=== PATIENT | male | born 1970 | race Caucasian/White ===

== ENCOUNTER 2019-02-10 12:01 | Inpatient (IN) | payer OTHER ==
[~2019-02-10 12:01] MED LIST: Dexamethasone 20 MG/5 ML VIAL ONE; Glycopyrrolate 0.2 MG/ML 5 ML SYRINGE ONE; Lidocaine 1% PF 5 ML VIAL ONE; Ondansetron PF 4 MG/2 ML Vial ONE; PHENYLEPHRINE-NS 100 MCG/ML 10 ML SYRINGE ONE; PROPOFOL 200 MG/20 ML VIAL ONE; Succinylcholine Chloride 20 MG/ML 10 ml SYRINGE FS ONE; ePHEDrine 50 MG/ML VIAL ONE
[2019-02-10 14:17] LABS: Mean Corpuscular HGB CONC 32.9 g/dL (32.0-36.0); Mean Corpuscular Hemoglobin 32.2 pg (27.0-31.0); Mean Corpuscular Volume 97.8 fL (78.0-98.0); Platelet Count 414 thou/uL (130-400); RBC Distribution Width 13.5 % (11.5-14.5); Red Blood Cell (RBC) Count 5.27 mill/uL (4.70-6.10); White Blood Cell (WBC) Count 24.8 thou/uL (4.8-10.8)
[2019-02-10 14:33] LABS: ALT (SGPT) 57 U/L (8-55); AST (SGOT) 36 U/L (5-34); Albumin 3.3 g/dL (3.5-5.0); Alkaline Phosphatase 125 U/L (40-150); Anion Gap 15 mmol/L (10-20); BUN (Urea Nitrogen) 14 mg/dL (8.9-20.6); Calc. Creatinine Clearance 0 mL/min (70-130); Calcium 8.4 mg/dL (7.8-10.44); Carbon Dioxide 24 mmol/L (22-29); Chloride 102 mmol/L (98-107); Estimated GFR-MDRD Greater than 90; Glucose 111 mg/dL (70-105); Potassium 3.7 mmol/L (3.5-5.1); Protein, Total 7.3 g/dL (6.0-8.3); Sodium 137 mmol/L (136-145)
[2019-02-10] MEDS ORDERED: Metoclopramide HCl 10 MG/2 ML VIAL ONE (14:35)
[2019-02-10] MEDS ORDERED: Ketorolac Tromethamine 30 MG/ML VIAL ONE (14:35)
[2019-02-10 14:48] LABS: Band 4 % (5-11); Eosinophils 3 % (0-10); Lymphocytes 18 % (21-51); MDiff Complete? YES; Monocytes 9 % (0-10); Neutrophil 66 % (42-75); Platelet Morphology Comment Appears Increased; Toxic Granulation SLIGHT
[2019-02-10] MEDS ORDERED: Acetaminophen 325 MG TAB ONE (15:12)
--- NOTE | 2019-02-10 15:34 | CT ---
CT OF NECK PERFORMED WITH CONTRAST ENHANCEMENT: Date: 02/10/19 HISTORY: Patient with neck pain and headache, admitted to [facility] 3 days ago and left AMA. FINDINGS: There is marked retropharyngeal soft tissue swelling. This begins anterior to the clivus and extends at least to the C5-6 level. Low attenuation multiloculated fluid collection, most compatible with a l arge retropharyngeal abscess. The low attenuation changes extend along the right and left sides of th e C2 vertebral body, even to the level of the lamina of C2, consistent with extension abscess. In add ition, there is epidural mass seen posterior to C2 extending from the base of the clivus to approxima tely the C3 level. This would be better investigated with MRI. There are associated reactive lymph nodes noted. Epiglottis is normal in appearance. Thyroid gland is normal. Lung apices are clear of infiltrates. IMPRESSION: Large retropharyngeal abscess as described above, also with evidence for epidural extension at the C1 -2 level. Findings discussed with Dr. Rivera. I would recommend MRI for assessment of the cervical findings. CODE CR. POS: LAZARO
[2019-02-10] MEDS ORDERED: ISOVUE-370 76%-LOCM 1 ML ONE (15:44)
[2019-02-10] MEDS ORDERED: cefTRIAXone\\ROCEPHIN 2 GM VIAL ONE (15:57)
[2019-02-10] MEDS ORDERED: Lidocaine 1% w/Epinephrine 1:100K 20 ML VIAL ONE (17:29)
[2019-02-10] MEDS ORDERED: Bacitracin Zinc Ointment 30 gm TUBE ONE (17:29)
[2019-02-10] MEDS ORDERED: Clindamycin/D5W 900 mg/50 ml Premix Bag ONE (17:31)
[2019-02-10] MEDS ORDERED: Midazolam HCl 2 mg/2 ml Vial ONE ×2 (17:57→19:14)
[2019-02-10] MEDS ORDERED: Fentanyl 100 MCG/2 ML VIAL ONE ×2 (17:57→19:45)
[2019-02-10] MEDS ORDERED: Heparin 1,000 UNITS/ML VIAL ONE (18:00)
[2019-02-10] MEDS ORDERED: Vancomycin HCl 1.5 GM in Sodium Chloride 0.9% 250 ML 300 ML IVPB ONE (18:15)
[2019-02-10] MEDS ORDERED: Bupivacaine/Epinephrine 0.25% 30 ML VIAL ONE (18:17)
--- NOTE | 2019-02-10 19:32 | HP ---
PRIMARY CARE PHYSICIAN: The patient currently does not have a primary care physician. CHIEF COMPLAINT: Left [facility] last night with severe neck pain and headache. HISTORY OF PRESENT ILLNESS: Mr. Landaverde is a 48-year-old gentleman, who was admitted to the [facility] in [place] on 02/06/2019 due to severe headache as well as fever and he was having neck pain 5 days prior to admission. He was evaluated there and admitted and there was concern that he may have possible meningitis and LP was done and it was noted that he had an elevated white blood cell count in the cerebrospinal fluid. He was admitted to the Medical Service and blood cultures had been drawn in the ER, which grew MSSA. He was seen by the Infectious Disease Service there and was being treated with cefazolin IV. While he was there, they did an MRI of the cervical spine, which was noted that he had some prevertebral edema extending from the level of C1-C5 as well as some increased enhancement of the C1 and C2 vertebrae, which was concerning for osteomyelitis. There was no evidence of any obvious fluid collection. However, a CT scan done in our facility, noted an area in the retropharyngeal area that appeared to be a large retropharyngeal abscess with some evidence of epidural extension at the C1-C2 level and he is being admitted for MRSA sepsis as well as retropharyngeal abscess and possible spinal osteomyelitis. The patient at this time is complaining of severe neck pain and he feels like his head is being sheared off at the neck. He is also quite animated and is crying at times and saying "he doesn't want to ." It is very difficult to obtain any additional history from him. He denies having any chest pain. He denies feeling short of breath except having difficulty breathing through his nose. No nausea, no vomiting, no abdominal pain, and according to the patient prior to this, he was basically healthy and was active without any difficulty. REVIEW OF SYSTEMS: All systems were reviewed and are negative except for that mentioned in the history of present illness. PAST MEDICAL HISTORY: Significant for hypertension and history of West Nile virus. PAST SURGICAL HISTORY: He has had surgery to remove kidney stones in the past. ALLERGIES: NO KNOWN DRUG ALLERGIES. SOCIAL HISTORY: He is . He is a nonsmoker and nondrinker. He says he used to use every drug imaginable; however, he stopped doing that about 10 years ago. He says he stopped after he overcame the West Nile virus. FAMILY HISTORY: Significant for hyperlipidemia, hypertension, Crohn disease, and multiple family members with drug and alcohol abuse. MEDICATIONS: His medications prior to admission was an occasional muscle relaxer. PHYSICAL EXAMINATION: GENERAL: He is alert and oriented. He appears to be in some distress due to pain. Again, he is agitated and writhing around and crying at times. He is well developed and well nourished. VITAL SIGNS: His blood pressure was 134/62, heart rate 120, respiratory rate of 16, and his temperature was approximately 101. HEENT: His pupils are equal, round, and reactive. Extraocular muscles are intact. His sclerae anicteric. Throat; there is no erythema, no exudates. NECK: There is no adenopathy, no bruits. LUNGS: Clear to auscultation. There is no wheezing, no rales, no rhonchi. CARDIOVASCULAR: He had a normal S1, S2. I did not appreciate an S3 or S4. No murmurs or clicks. No rubs. ABDOMEN: Obese. It is soft, nontender, and nondistended. Positive for bowel sounds. There is no rebound, no guarding, no organomegaly. EXTREMITIES: There is no clubbing or cyanosis. No edema. NEUROLOGIC: Cranial nerves 2 through 12 are grossly intact. His muscle strength was 5/5 in both his upper and lower extremities. He had good trade manager strength and there is no drift. SKIN AND INTEGUMENT: There were no skin changes, no rash. LABORATORY DATA: Lab results; his sodium is 137, potassium 3.7, chloride is 102, CO2 is 24, BUN of 14, creatinine 0.79, glucose is 111. Lactic acid was 3.0. AST 36, ALT 57. His white blood cell count is 24.8, hemoglobin 17, hematocrit is 51.5, and platelet count is 414. Again, CT scan showed findings concerning for a large retropharyngeal abscess with some epidural extension at the C1-2 level. ASSESSMENT: 1. Retropharyngeal abscess with evidence of sepsis with elevated white blood cell count and fever. He is being evaluated by Dr. Jones with ENT at this time and the plan is for him to be taken emergently to surgery. We will continue IV cefazolin based on the culture results from the [facility]. 2. Methicillin-sensitive Staphylococcus aureus sepsis. Again, continue cefazolin and consult ID for further recommendations. In review of the records, there was no mention of an echocardiogram and this may have been planned before he left AMA. We will likely need to get an echocardiogram and possibly even a transesophageal echo to rule out endocarditis. He has a history of prior drug abuse even though he denies any at this time. This needs to be a consideration. 3. Possibility of a C1-C2 osteomyelitis/epidural abscess. An MRI was ordered. However, the patient was not able to tolerate it "secondary to pain." We will consult Neurosurgery for further recommendations and again continue the IV antibiotics. We will likely need to try to obtain the films from the [facility]. 4. Hypertension. This can be treated with p.r.n. hydralazine and/or labetalol. 5. Deep venous thrombosis prophylaxis will be provided with SCDs only until cleared by ENT and Neurosurgery. Job ID: [id number]
[2019-02-10] MEDS ORDERED: Labetalol HCl 100 MG/20 ML VIAL SLOW IVP PRN (20:52)
[2019-02-10] MEDS ORDERED: Ondansetron PF 4 MG/2 ML Vial IVP PRN (20:52)
[2019-02-10] MEDS ORDERED: Morphine 2 MG/ML SYRINGE SLOW IVP PRN (20:58)
[2019-02-10] MEDS: Dextrose 5 % And 0.9 % NaCl 1,000 ML IV SCH (21:13)
[2019-02-10] MEDS: Famotidine/PF 20 mg/2ml Vial SLOW IVP SCH (21:13)
[2019-02-10] MEDS: CEFAZOLIN 2 GM in Premix Bag 1 BAG IVPB SCH (21:13)
[2019-02-10] MEDS: Morphine 4 MG/ML VIAL SLOW IVP PRN (21:14)
[2019-02-10 21:21] LABS: Lactic Acid 0.8 mmol/L (0.5-2.2)
[2019-02-10 22:16] VITALS: BMI 27.5
--- NOTE | 2019-02-10 22:23 | CON ---
DATE OF CONSULTATION: 02/10/2019 SUBJECTIVE: The patient is currently in the operating room and could not be examined. We are familiar with the patient from his recent admission at [facility]. He is a 48-year-old man who was found to have meningitis and sepsis and ultimately imaging suggested cervical osteomyelitis. The presumptive organism is Staph aureus. He was started on antibiotics, but apparently left AMA from that facility and was readmitted here. A CT scan suggests progression of retropharyngeal abscess and he is now in surgery per ENT for drainage. Based on the CT and the previous MRI at [facility], he likely has fairly diffuse osteomyelitis of the cervical spine undoubtedly with some amount of epidural extension, but no evidence of neurologic compromise. IMPRESSION AND PLAN: There are no neurosurgical indications at this time. There are no reasonable neurosurgical strategies to reduce the bacterial load or change the course of this infection. Surgery would be reserved for neurologic deterioration related to compressive pathology. Given the diffuse and progressive nature of his infection, he is at quite high risk for progression despite maximum therapy. Job ID: [id number]
[2019-02-10] MEDS: Ketorolac Tromethamine 30 MG/ML VIAL IVP PRN (22:50)
[2019-02-10] MEDS: Lorazepam 2 MG/ML VIAL SLOW IVP PRN (22:51)
[2019-02-11] MEDS: Morphine 4 MG/ML VIAL SLOW IVP PRN (03:53)
[2019-02-11] MEDS: CEFAZOLIN 2 GM in Premix Bag 1 BAG IVPB SCH ×2 (05:10→14:14)
[2019-02-11] MEDS: Ketorolac Tromethamine 30 MG/ML VIAL IVP PRN ×2 (05:59→17:15)
[2019-02-11 06:39] LABS: Anion Gap 10 mmol/L (10-20); BUN (Urea Nitrogen) 12 mg/dL (8.9-20.6); Calc. Creatinine Clearance 150 mL/min (70-130); Calcium 8.1 mg/dL (7.8-10.44); Carbon Dioxide 27 mmol/L (22-29); Chloride 104 mmol/L (98-107); Estimated GFR-MDRD Greater than 90; Glucose 134 mg/dL (70-105); Potassium 5.5 mmol/L (3.5-5.1); Sodium 135 mmol/L (136-145)
[2019-02-11 06:55] LABS: Hemoglobin 14.3 g/dL (14.0-18.0); Lymphocytes 5 % (21-51); MDiff Complete? YES; Mean Corpuscular HGB CONC 31.9 g/dL (32.0-36.0); Mean Corpuscular Volume 97.2 fL (78.0-98.0); Monocytes 5 % (0-10); Myelocyte 1 % (0-0); Neutrophil 89 % (42-75); Platelet Count 525 thou/uL (130-400); RBC Distribution Width 13.4 % (11.5-14.5); White Blood Cell (WBC) Count 23.5 thou/uL (4.8-10.8)
[2019-02-11] MEDS ORDERED: Diabetic Tussin 200 MG/10 ML UDCUP PO PRN (07:58)
[2019-02-11] MEDS ORDERED: Artificial Tears 18 DROP/0.9 ML EA EYE PRN (07:58)
[2019-02-11] MEDS ORDERED: Sodium Chloride 0.65% Nasal 44 ML BOT EA NARE PRN (07:58)
[2019-02-11] MEDS ORDERED: Bisacodyl 10 MG SUPP PR PRN (07:58)
[2019-02-11] MEDS ORDERED: Zolpidem Tartrate 5 MG TAB PO PRN (07:58)
[2019-02-11] MEDS ORDERED: Senokot S 8.6-50 MG TAB PO PRN (07:58)
[2019-02-11] MEDS ORDERED: hydrALAZINE 20 MG/ML VIAL SLOW IVP PRN (07:58)
[2019-02-11] MEDS ORDERED: Eucerin (Mineral Oil/Petrolatum,White) 30 gm Jar TOP PRN (07:58)
[2019-02-11] MEDS ORDERED: Loperamide HCl 2 MG CAP PO PRN (07:58)
[2019-02-11] MEDS ORDERED: Loratadine 10 MG TAB PO PRN ×2 (07:58→08:16)
[2019-02-11] MEDS ORDERED: Calcium Carbonate 500 MG ChewTAB PO PRN (07:58)
[2019-02-11] MEDS ORDERED: Cepastat Lozenges 1 LOZ PO PRN (07:58)
[2019-02-11] MEDS ORDERED: Ondansetron ODT 4 MG TAB SL PRN (07:58)
[2019-02-11] MEDS: Famotidine/PF 20 mg/2ml Vial SLOW IVP SCH ×2 (08:40→20:21)
[2019-02-11] MEDS: Dextrose 5 % And 0.9 % NaCl 1,000 ML IV SCH ×2 (08:40→20:22)
--- NOTE | 2019-02-11 11:00 | PDOC.PN ---
- Subjective Encounter Start Date: 02/11/19 Encounter Start Time: 08:30 Patient seen and examined. No new complaints. No overnight events - Objective Resuscitation Status - Order Detail: 02/10/19 17:51 Resuscitation Status Routine Resuscitation Status: FULL: Full Resuscitation MAR Reviewed: Yes Vital Signs & Weight: Vital Signs (12 hours) Temp Pulse Resp BP Pulse Ox 02/11/19 08:00 98 02/11/19 07:28 97.8 F 104 H 18 149/93 H 98 02/11/19 03:59 98.3 F 97 18 142/93 H 97 Weight Weight 197 lb 4.8 oz I&O: 02/10/19 02/11/19 02/12/19 06:59 06:59 06:59 Intake Total 1620 Output Total 1878 Balance -258 Result Diagrams: 02/11/19 05:38 02/11/19 05:38 Radiology Reviewed by me: Yes Phys Exam - Physical Examination Constitutional: NAD HEENT: PERRLA, moist MMs, sclera anicteric Neck: no JVD, supple surgical drain+ Respiratory: no wheezing, no rales, no rhonchi Cardiovascular: RRR, no significant murmur, no rub Gastrointestinal: soft, non-tender, no distention, positive bowel sounds Musculoskeletal: no edema, pulses present Neurological: non-focal, normal sensation Lymphatic: no nodes Psychiatric: normal affect Skin: no rash, normal turgor Dx/Plan (1) Epidural abscess Code(s): G06.2 - EXTRADURAL AND SUBDURAL ABSCESS, UNSPECIFIED Status: Acute (2) Lactic acidosis Code(s): E87.2 - ACIDOSIS Status: Acute (3) Retropharyngeal abscess Code(s): J39.0 - RETROPHARYNGEAL AND PARAPHARYNGEAL ABSCESS Status: Acute (4) Sepsis Code(s): A41.9 - SEPSIS, UNSPECIFIED ORGANISM Status: Acute (5) Transaminitis Code(s): R74.0 - NONSPEC ELEV OF LEVELS OF TRANSAMNS & LACTIC ACID DEHYDRGNSE Status: Acute (6) Hypertension Code(s): I10 - ESSENTIAL (PRIMARY) HYPERTENSION Status: Chronic - Plan cont current plan of care, continue antibiotics * s/p abscess drainage * continue cefazolin, further antibiotics will defer to ID * echo * today check HIV, Hep profile, CRP, ESR * pain controlled * follow culture * medication reviewed as below * symptomatic treatment. Review of Systems - Review of Systems ENT: Throat Pain. negative: Ear Pain, Ear Discharge, Nose Pain, Nose Discharge , Nose Congestion, Mouth Pain, Mouth Swelling, Throat Swelling, Other Respiratory: negative: Cough, Dry, Shortness of Breath, Hemoptysis, SOB with Excertion, Pleuritic Pain, Sputum, Wheezing Cardiovascular: negative: chest pain, palpitations, orthopnea, paroxysmal nocturnal dyspnea, edema, light headedness, other Gastrointestinal: negative: Nausea, Vomiting, Abdominal Pain, Diarrhea, Constipation, Melena, Hematochezia, Other Genitourinary: negative: Dysuria, Frequency, Incontinence, Hematuria, Retention , Other Musculoskeletal: negative: Neck Pain, Shoulder Pain, Arm Pain, Back Pain, Hand Pain, Leg Pain, Foot Pain, Other Skin: negative: Rash, Lesions, Vincenzo, Bruising, Other - Medications/Allergies Allergies/Adverse Reactions: Allergies Allergy/AdvReac Type Severity Reaction Status Date / Time ANTIHISTAMINES Allergy Uncoded 02/10/19 18:01 Medications: Current Medications Hydrocodone Bitart/Acetaminophen ([place] 5/325) 1 tab PO Q4H PRN PRN Reason: Moderate Pain (4-6) Artificial Tears (Tears Naturale) 2 drop EA EYE PRN PRN PRN Reason: Dry Eyes Bisacodyl (Dulcolax) 10 mg MS DAILYPRN PRN PRN Reason: Constipation Calcium Carbonate (Tums) 1,000 mg PO Q4H PRN PRN Reason: Heartburn or Indigestion Famotidine (Pepcid) 20 mg SLOW IVP Q12HR [facility] Last Admin: 02/11/19 08:40 Dose: 20 mg Guaifenesin (Robitussin Sf) 200 mg PO Q4H PRN PRN Reason: Cough Hydralazine HCl (Apresoline) 10 mg SLOW IVP Q4H PRN PRN Reason: SBP > 180 and HR < 70 Dextrose/Sodium Chloride (D5 0.9% Ns) 1,000 mls @ 75 mls/hr IV .[id number] [facility] Last Admin: 02/11/19 08:40 Dose: 1,000 mls Cefazolin Sodium/Dextrose 2 gm (/ Device) 50 mls @ 100 mls/hr IVPB Q8HR [facility] Last Admin: 02/11/19 05:10 Dose: 50 mls Ketorolac Tromethamine (Toradol) 15 mg IVP Q6H PRN PRN Reason: Pain Stop: 02/11/19 22:35 Last Admin: 02/11/19 05:59 Dose: 15 mg Labetalol HCl (Normodyne) 20 mg SLOW IVP Q4H PRN PRN Reason: SBP > 180 and HR >/= 70 Loperamide HCl (Imodium) 2 mg PO PRN PRN PRN Reason: Diarrhea/Loose Stools Loratadine (Claritin) 10 mg PO DAILYPRN PRN PRN Reason: Sinus Symptoms Lorazepam (Ativan) 1 mg SLOW IVP Q4H PRN PRN Reason: Anxiety/Agitation Last Admin: 02/10/19 22:51 Dose: 1 mg Mineral Oil/White Petrolatum (Eucerin Cream) 0 gm TOP BIDPRN PRN PRN Reason: Dry Skin Morphine Sulfate (Morphine) 4 mg SLOW IVP Q4H PRN PRN Reason: Moderate to Severe Pain (6-10) Last Admin: 02/11/19 03:53 Dose: 4 mg Morphine Sulfate (Morphine) 2 mg SLOW IVP Q4H PRN PRN Reason: Mild-Moderate Pain (1-5) Ondansetron HCl (Zofran) 4 mg IVP Q6H PRN PRN Reason: Nausea/Vomiting Ondansetron HCl (Zofran Odt) 4 mg SL Q6H PRN PRN Reason: Nausea/Vomiting Senna/Docusate Sodium (Senokot S) 2 tab PO BID PRN PRN Reason: Constipation Sodium Chloride ([place] 0.65%) 0 ml EA NARE QIDPRN PRN PRN Reason: Nasal Congestion Throat Lozenges (Cepastat Lozenges) 1 miriam PO Q2H PRN PRN Reason: Sore Throat Zolpidem Tartrate (Ambien) 5 mg PO HSPRN PRN PRN Reason: Insomnia
[2019-02-11 12:47] LABS: HBCM Index 0.08 S/CO (0-0.79); HBSAg Index 0.34 S/CO (0-0.99); HIV (1/2) Antibody/Antigen Non-Reactive (NonReactive); HIV 1/2 INDEX 0.09 S/CO (<1.00); Hep A IgM AB Non-Reactive (NonReactive); Hep A IgM S/CO 0.14 S/CO (0-0.79); Hep B Surf Ag Non-Reactive S/CO (NonReactive); Hepatitis B Core IgM Abs Non-Reactive (NonReactive)
[2019-02-11 13:04] LABS: Hep C IgG Ab Reflex HepC Qnt (NonReactive); Hep C Index 2.62 S/CO (0-0.79)
[2019-02-11 16:36] LABS: Bilirubin Negative (Negative); Blood, Urine Negative (Negative); Clarity CLEAR (Clear); Glucose, Urine (Dipstick) Negative (Negative); Leukocyte Negative (Negative); Nitrite Negative (Negative); Protein, Urine (Dipstick) Negative (Neg-Trace); Specific Gravity, Urine 1.016 (1.002-1.036); pH, Urine 6.5 (5.0-9.0)
[2019-02-11 16:49] LABS: Medtox Reader # READER 4
[2019-02-11 16:50] LABS: Amphetamine Not Detected (NotDetected); Barbiturates Screen Not Detected (NotDetected); Benzodiazepine Screen Detected (NotDetected); Cocaine Metabolite Screen Not Detected (NotDetected); Medtox Control Line Valid? VALID (VALID); Methadone Not Detected (NotDetected); Methamphetamine Detected (NotDetected); Opiate Screen Detected (NotDetected); Oxycodone Screen Not Detected (NotDetected); Phencyclidine (PCP) Not Detected (NotDetected); THC/Cannabinoid Screen Not Detected (NotDetected); Tricyclic Screen Not Detected (NotDetected)
[2019-02-11] MEDS: Oxacillin 2 GM in Sodium Chloride 0.9% 100 ML IVPB SCH ×2 (17:11→20:21)
[2019-02-11] MEDS: HYDROcodone/Acetaminophen 5/325 mg Tablet PO PRN (17:14)
--- NOTE | 2019-02-11 18:55 | OP ---
DATE OF PROCEDURE: 02/10/2019 PREOPERATIVE DIAGNOSIS: Retropharyngeal abscess. POSTOPERATIVE DIAGNOSIS: Retropharyngeal abscess. PROCEDURE PERFORMED: Incision and drainage of retropharyngeal abscess external approach. RESOURCES REPRESENTATIVE: Dr. Freddy Faust. ANESTHESIA: General endotracheal anesthetic. BLOOD LOSS: 40 mL. FLUIDS: 600 mL of crystalloid. COMPLICATIONS: None. FINDINGS: Very loose friable tissue in the retropharyngeal space extending from the skull base down to about the level of C4. No overt pus was identified. There was some necrotic tissue and a sample was taken for body tissue culture. DRAINS: One drain was placed. INDICATIONS FOR PROCEDURE: The patient is a 48-year-old man with a worsening neck pain and headache, an elevated white count noted to have what appears to be retropharyngeal abscess on CT scan. He was brought to the operating room today for treatment. DESCRIPTION OF PROCEDURE: After properly identifying the patient, he was brought to the operating room, placed on the operating room table and placed under adequate general endotracheal anesthetic without difficulty. A proper time-out was performed. The patient was appropriately positioned on a shoulder roll, was prepped and draped with Betadine and sterile towels. An incision was made along relaxing skin tension line on the left lateral neck overlying the sternocleidomastoid muscle and extending medially. The incision was taken down through the platysma, and then the anterior border of the sternocleidomastoid was identified and it was bluntly dissected anteriorly and medially just medial to the carotid sheath and into the lateral neck. I then identified the laryngeal structure as well as the esophagus and we entered the retropharyngeal space bluntly. I then opened up the wound inferiorly and superiorly. There was a lot of really loose tissue with a lot of bloody discharge. No overt pus was noted. I went all the way from the skull base bilaterally down all the way down to about C4-C5. We then irrigated the wound, placed a drain and sutured it in place. We then closed the wound in a layered fashion using a 4-0 Monocryl to close the deep tissues and the platysmal layer, 4-0 nylon in a subcutaneous manner to close the skin, and then Steri-Strips applied. The patient was then returned back over to anesthesia. The patient was awakened and extubated in the operating room, taken to recovery room in stable condition. Job ID: [id number]
--- NOTE | 2019-02-11 21:09 | CON ---
DATE OF CONSULTATION: REASON FOR CONSULTATION: Cervical spine and neck soft tissue inflammatory process with bacteremia. 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 To make a long story short, he reportedly went to 4 different emergency rooms around [facility] and eventually ended up at [facility] where he had a spinal tap which showed neutrophilic pleocytosis around 160, normal glucose and elevated protein. He had an MRI of the C-spine, which showed an inflammatory process in the retropharyngeal area abutting into the C1 and C2 region with possible osteomyelitis, but no evidence of epidural abscess, although there was some thickening of the area. The MRI of the brain did not show any major abnormalities and he had 2 sets of blood cultures which were yielded methicillin-susceptible Staphylococcus aureus. The final susceptibility studies have not yet been resulted. He received IV cefazolin and it appears that he signed out against medical advice and reportedly, there was some paranoid ideation and he decided to leave. He was brought back to the room and then eventually, the staff decided to just have him leave the hospital after signing the form and he ended up at . He had a CT done here. Neurosurgery has seen the patient, felt not to be a surgical candidate or requiring any surgical intervention at this point and he has been started on cefazolin. The patient currently is a little bit paranoid, but is not as agitated as he had been before by history. He denies any headaches. No visual symptoms, sore throat, odynophagia , or dysphagia. He does have moderate neck pain but not nearly as intense as previously. No odynophagia. No cough or sputum production or chest pain. He does not have any thoracic spine or lumbosacral spine pain. No other joint symptoms. No abdominal pain. No diarrhea. No genitourinary symptoms. No skin disorder. No neurological symptoms. PAST MEDICAL HISTORY: Hypertension, reported West Nile virus. Looks like he did have hepatitis and was treated in the past, he is not sure which kind of hepatitis but looks most likely it is going to stock turner to be hepatitis C treatment. He had also a history of nephrolithiasis with lithotripsy. ALLERGIES: NONE. SOCIAL HISTORY: . It is not clear the living arrangements, but looks like his works and lives in the area and he is still in [place]. Not clear what the arrangement is there. He is still using drugs such as methamphetamine by the inhaled route, but quit shooting up meth and cocaine many years ago reportedly. He does not smoke cigarettes at this point in time and does not drink alcoholic beverages. FAMILY HISTORY: Hyperlipidemia, hypertension, Crohn disease. CURRENT MEDICATIONS: 1. Dulcolax. 2. Cefazolin 2 g q.8. 3. Famotidine. 4. Guaifenesin. 5. Labetalol. 6. Loratadine. 7. Lorazepam. 8. Morphine. 9. Had been on ceftriaxone and clindamycin that has been discontinued as well as vancomycin. PHYSICAL EXAMINATION: VITAL SIGNS: T-max 98.3, blood pressure 140/80, pulse 102, respirations 18, O2 saturation 99%. SKIN: Shows multiple tattoos. He has a peripheral IV access. He is complaining of the need for access and difficulty with access for blood draws, etc. HEENT: No lymphadenopathy. Ocular movements conjugate. Pupils are equal. There is tenderness in the posterior neck area, but neck is pretty supple. Oral cavity exam showed numerous missing teeth, remainder ones with quite a bit of decay and gum disease. No oral lesions noted. LUNGS: Symmetric air entry. No crackles or wheezing. HEART: S1, S2. Regular rate. No S3 or S4. ABDOMEN: Soft. Not distended or tender. No ascites. No bladder distention. GENITALIA: No genital abnormalities. EXTREMITIES: Pulses are 2+ in dorsalis pedis. NEURO: Nonfocal. He is awake, knows his name. He is a bit paranoid, sometimes asking appropriate questions and behaving with a sense of persecution. LABORATORY RESULTS: His white cell count is 24,000 and 23 now. Hemoglobin 17, platelets 414 and then 525, 89% neutrophils. Sodium 137, creatinine is 0.79, AST 36, ALT 57, albumin 3.3. CRP was 5.83. Hep C antibody was positive. HIV nonreactive. B and A nonreactive. We have a soft tissue of neck with large retropharyngeal abscess with epidural extension at C1-C2 level and the MRI done at [facility] showed the same findings with some evidence of osteomyelitis. I believe close to C1 and C2 but no epidural abscess. The patient has had a surgical drainage by Dr. Jones. ASSESSMENT: 1. History of IV drug use, in remission reportedly. 2. Continuing use of methamphetamine up to recently. 3. Acute onset of neck pain, posteriorly located close to the occiput associated with radiological abnormalities noted above, status post drainage of a retropharyngeal abscess. 4. Staphylococcus aureus bacteremia, likely methicillin sensitive Staph aureus. Of note, the patient had an echocardiogram done transthoracic, which did not show vegetations. A KARTHIK had been scheduled, but was canceled or the patient left the hospital against medical advice, which prevented the completion of the study. DISCUSSION: The most likely scenario here includes bacteremia, possible endocarditis with seeding of the disk space and then extension towards the posterior neck region, retropharyngeal area right at the occiput. The patient actually does have osteomyelitis by MRI, which is part of the process. This is a very critical area in view of the neurological real state that crosses through it and we will have to be very careful in the followup. May have to repeat the MRI down the road and be attentive to any potential neurological signs. Due to his psychiatric issues and social difficulties, this will be a challenging case to manage in the outpatient setting. He will need a PICC line placed and he will probably have to come to the Oncology area, to be administered antimicrobial therapy daily for at least 8 weeks. His adherence to treatment is going to be questionable and I anticipate complications going forward, potential adverse reactions of the PICC line insertion, and the drugs administered have been discussed with the patient. He understood and agreed with management and recommendation. We will start treatment with oxacillin in the hospital until there is a decrease in the inoculum of bacteria and then we will switch him to cefazolin after that or even Rocephin. Job ID: [id number] [facility]
[2019-02-12] MEDS: Lorazepam 2 MG/ML VIAL SLOW IVP PRN (00:14)
[2019-02-12] MEDS: Oxacillin 2 GM in Sodium Chloride 0.9% 100 ML IVPB SCH ×6 (00:14→20:15)
[2019-02-12] MEDS: HYDROcodone/Acetaminophen 5/325 mg Tablet PO PRN ×4 (00:14→22:20)
--- NOTE | 2019-02-12 06:54 | PRG ---
DATE OF SERVICE: 02/12/2019 SUBJECTIVE: The patient is a 48-year-old male who is known to us for a recent evaluation at [facility] and then here for evaluation of meningitis and sepsis, and ultimate imaging suggestive of cervical osteomyelitis. He left AMA at [facility], and then was seen at [facility] ER and ultimately found to have a retropharyngeal abscess that was drained by Dr. Jones on 02/11/2019. He has also been seen by ID who is assisting with long-term antibiotics. I am visiting the patient this morning, he reports that his headache and neck pain are improving. He is anxious to return home at some point soon. He is awake, alert, in no acute distress. He has free active range of motion of all extremities. No focal motor weakness or neurologic deficits are appreciated. He has remained afebrile overnight. At this point, the patient remains neurologically intact. There are no neurosurgical indications at this time. He is still high risk for progression considering the nature of his infection. Please reach out to Neurosurgery for additional questions or concerns. Job ID: [id number]
[2019-02-12 07:16] LABS: #Basophils 0.1 thou/uL (0.0-0.2); #Eosinphils 0.3 thou/uL (0.0-0.7); #Lymphocytes 3.2 thou/uL (1.20-3.40); #Monocytes 1.4 thou/uL (0.11-0.59); #Neutrophils 11.4 thou/uL (1.40-6.50); %Basophils 0.6 % (0.0-1.0); %Eosinophils 1.8 % (0.0-10.0); %Lymphocytes 19.5 % (21.0-51.0); %Monocytes 8.3 % (0.0-10.0); %Neutrophils 69.8 % (42.0-75.0); Mean Corpuscular HGB CONC 32.8 g/dL (32.0-36.0); Mean Corpuscular Hemoglobin 32.1 pg (27.0-31.0); Mean Platelet Volume 6.6 fL (7.4-10.4); Platelet Count 673 thou/uL (130-400); RBC Distribution Width 13.5 % (11.5-14.5); Red Blood Cell (RBC) Count 4.35 mill/uL (4.70-6.10); White Blood Cell (WBC) Count 16.3 thou/uL (4.8-10.8)
[2019-02-12 07:37] LABS: Anion Gap 12 mmol/L (10-20); BUN (Urea Nitrogen) 11 mg/dL (8.9-20.6); Calc. Creatinine Clearance 163 mL/min (70-130); Calcium 8.3 mg/dL (7.8-10.44); Carbon Dioxide 21 mmol/L (22-29); Chloride 108 mmol/L (98-107); Estimated GFR-MDRD Greater than 90; Glucose 92 mg/dL (70-105); Potassium 4.1 mmol/L (3.5-5.1); Sodium 137 mmol/L (136-145)
[2019-02-12] MEDS: Famotidine/PF 20 mg/2ml Vial SLOW IVP SCH ×2 (08:48→20:15)
--- NOTE | 2019-02-12 11:59 | PDOC.PN ---
- Subjective Encounter Start Date: 02/12/19 Encounter Start Time: 08:45 Patient seen and examined. No new complaints. No overnight events - Objective Resuscitation Status - Order Detail: 02/10/19 17:51 Resuscitation Status Routine Resuscitation Status: FULL: Full Resuscitation MAR Reviewed: Yes Vital Signs & Weight: Vital Signs (12 hours) Temp Pulse Resp BP Pulse Ox 02/12/19 08:40 98 02/12/19 07:22 97.7 F 106 H 20 155/94 H 98 02/12/19 04:13 97.6 F 97 20 138/87 97 02/12/19 00:19 98.0 F 90 20 150/89 H 96 Weight Admit Weight 197 lb 4.8 oz Weight 197 lb 4.8 oz I&O: 02/11/19 02/12/19 02/13/19 06:59 06:59 06:59 Intake Total 1620 3760 230 Output Total 1878 4265 10 Balance -258 -505 220 Result Diagrams: 02/12/19 06:28 02/12/19 06:28 Phys Exam - Physical Examination Constitutional: NAD HEENT: PERRLA, moist MMs, sclera anicteric Neck: no JVD, supple drain+ Respiratory: no wheezing, no rales, no rhonchi Cardiovascular: RRR, no significant murmur, no rub Gastrointestinal: soft, non-tender, no distention, positive bowel sounds Musculoskeletal: no edema, pulses present Neurological: non-focal, normal sensation Lymphatic: no nodes Psychiatric: normal affect, A&O x 3 Skin: no rash, normal turgor Dx/Plan (1) Epidural abscess Code(s): G06.2 - EXTRADURAL AND SUBDURAL ABSCESS, UNSPECIFIED Status: Acute (2) Lactic acidosis Code(s): E87.2 - ACIDOSIS Status: Acute (3) Retropharyngeal abscess Code(s): J39.0 - RETROPHARYNGEAL AND PARAPHARYNGEAL ABSCESS Status: Acute (4) Sepsis Code(s): A41.9 - SEPSIS, UNSPECIFIED ORGANISM Status: Acute (5) Transaminitis Code(s): R74.0 - NONSPEC ELEV OF LEVELS OF TRANSAMNS & LACTIC ACID DEHYDRGNSE Status: Acute (6) Hypertension Code(s): I10 - ESSENTIAL (PRIMARY) HYPERTENSION Status: Chronic (7) Amphetamine abuse Code(s): F15.10 - OTHER STIMULANT ABUSE, UNCOMPLICATED Status: Acute (8) Chronic hepatitis C Code(s): B18.2 - CHRONIC VIRAL HEPATITIS C Status: Chronic (9) MSSA bacteremia Code(s): R78.81 - BACTEREMIA Status: Acute - Plan cont current plan of care, continue antibiotics, psych social worker * continue oxacillin * picc line today * social wokr to arrange outpt antibiotics * echo pending result * medication reviewed as below * symptomatic treatment. * full liquid diet today Review of Systems - Review of Systems ENT: negative: Ear Pain, Ear Discharge, Nose Pain, Nose Discharge, Nose Congestion, Mouth Pain, Mouth Swelling, Throat Pain, Throat Swelling, Other Respiratory: negative: Cough, Dry, Shortness of Breath, Hemoptysis, SOB with Excertion, Pleuritic Pain, Sputum, Wheezing Cardiovascular: negative: chest pain, palpitations, orthopnea, paroxysmal nocturnal dyspnea, edema, light headedness, other Gastrointestinal: negative: Nausea, Vomiting, Abdominal Pain, Diarrhea, Constipation, Melena, Hematochezia, Other Genitourinary: negative: Dysuria, Frequency, Incontinence, Hematuria, Retention , Other Musculoskeletal: negative: Neck Pain, Shoulder Pain, Arm Pain, Back Pain, Hand Pain, Leg Pain, Foot Pain, Other - Medications/Allergies Allergies/Adverse Reactions: Allergies Allergy/AdvReac Type Severity Reaction Status Date / Time ANTIHISTAMINES Allergy Uncoded 02/10/19 18:01 Medications: Current Medications Hydrocodone Bitart/Acetaminophen ([place] 5/325) 1 tab PO Q4H PRN PRN Reason: Moderate Pain (4-6) Last Admin: 02/12/19 09:20 Dose: 1 tab Artificial Tears (Tears Naturale) 2 drop EA EYE PRN PRN PRN Reason: Dry Eyes Bisacodyl (Dulcolax) 10 mg [place] DAILYPRN PRN PRN Reason: Constipation Calcium Carbonate (Tums) 1,000 mg PO Q4H PRN PRN Reason: Heartburn or Indigestion Famotidine (Pepcid) 20 mg SLOW IVP Q12HR MARCELINO Last Admin: 02/12/19 08:48 Dose: 20 mg Guaifenesin (Robitussin Sf) 200 mg PO Q4H PRN PRN Reason: Cough Hydralazine HCl (Apresoline) 10 mg SLOW IVP Q4H PRN PRN Reason: SBP > 180 and HR < 70 Oxacillin Sodium 2 gm/ Sodium (Chloride) 100 mls @ 200 mls/hr IVPB Q4HR MARCELINO Last Admin: 02/12/19 09:20 Dose: 100 mls Labetalol HCl (Normodyne) 20 mg SLOW IVP Q4H PRN PRN Reason: SBP > 180 and HR >/= 70 Loperamide HCl (Imodium) 2 mg PO PRN PRN PRN Reason: Diarrhea/Loose Stools Loratadine (Claritin) 10 mg PO DAILYPRN PRN PRN Reason: Sinus Symptoms Lorazepam (Ativan) 1 mg SLOW IVP Q4H PRN PRN Reason: Anxiety/Agitation Last Admin: 02/12/19 00:14 Dose: 1 mg Mineral Oil/White Petrolatum (Eucerin Cream) 0 gm TOP BIDPRN PRN PRN Reason: Dry Skin Morphine Sulfate (Morphine) 4 mg SLOW IVP Q4H PRN PRN Reason: Moderate to Severe Pain (6-10) Last Admin: 02/11/19 03:53 Dose: 4 mg Morphine Sulfate (Morphine) 2 mg SLOW IVP Q4H PRN PRN Reason: Mild-Moderate Pain (1-5) Ondansetron HCl (Zofran) 4 mg IVP Q6H PRN PRN Reason: Nausea/Vomiting Ondansetron HCl (Zofran Odt) 4 mg SL Q6H PRN PRN Reason: Nausea/Vomiting Senna/Docusate Sodium (Senokot S) 2 tab PO BID PRN PRN Reason: Constipation Sodium Chloride ([place] Nasal [place] 0.65%) 0 ml EA NARE QIDPRN PRN PRN Reason: Nasal Congestion Throat Lozenges (Cepastat Lozenges) 1 miriam PO Q2H PRN PRN Reason: Sore Throat Zolpidem Tartrate (Ambien) 5 mg PO HSPRN PRN PRN Reason: Insomnia
--- NOTE | 2019-02-12 15:46 | CON ---
DATE OF CONSULTATION: SUBJECTIVE: Mr. Landaverde continues to improve. He is continuing with IV antibiotics. He has no new complaints at this time. OBJECTIVE: GENERAL: The patient is well developed and well nourished, in no acute distress. VITAL SIGNS: Stable. HEENT: Drain is still in place, will be removed today. PROCEDURE NOTE: Drain stitch was clipped, drain removed with no difficulty, covered with gauze and tape. ASSESSMENT: 1. Postoperative pharyngeal abscess drainage. 2. Drain removal. PLAN: Continue with IV antibiotics per Medicine and follow up with Ear, Nose, and Throat upon discharge. Job ID: [id number]
[2019-02-13] MEDS: Oxacillin 2 GM in Sodium Chloride 0.9% 100 ML IVPB SCH ×4 (00:02→13:54)
[2019-02-13] MEDS: HYDROcodone/Acetaminophen 5/325 mg Tablet PO PRN ×2 (04:27→09:25)
[2019-02-13 04:45] LABS: #Basophils 0.1 thou/uL (0.0-0.2); #Eosinphils 0.2 thou/uL (0.0-0.7); #Lymphocytes 2.4 thou/uL (1.20-3.40); #Monocytes 1.4 thou/uL (0.11-0.59); #Neutrophils 6.6 thou/uL (1.40-6.50); %Basophils 0.6 % (0.0-1.0); %Eosinophils 1.6 % (0.0-10.0); %Lymphocytes 22.2 % (21.0-51.0); %Monocytes 12.9 % (0.0-10.0); %Neutrophils 62.7 % (42.0-75.0); Hemoglobin 12.1 g/dL (14.0-18.0); Mean Corpuscular HGB CONC 33.5 g/dL (32.0-36.0); Mean Corpuscular Hemoglobin 32.4 pg (27.0-31.0); Mean Corpuscular Volume 96.8 fL (78.0-98.0); Platelet Count 674 thou/uL (130-400); RBC Distribution Width 13.2 % (11.5-14.5); Red Blood Cell (RBC) Count 3.73 mill/uL (4.70-6.10); White Blood Cell (WBC) Count 10.6 thou/uL (4.8-10.8)
[2019-02-13 05:12] LABS: Anion Gap 16 mmol/L (10-20); BUN (Urea Nitrogen) 12 mg/dL (8.9-20.6); Calc. Creatinine Clearance 175 mL/min (70-130); Carbon Dioxide 22 mmol/L (22-29); Chloride 109 mmol/L (98-107); Estimated GFR-MDRD Greater than 90; Glucose 93 mg/dL (70-105); Potassium 3.2 mmol/L (3.5-5.1); Sodium 144 mmol/L (136-145)
[2019-02-13] MEDS ORDERED: Potassium Chloride 20 MEQ TAB PO SCH (07:45)
[2019-02-13] MEDS ORDERED: Famotidine 20 MG TAB PO SCH (09:00)
--- NOTE | 2019-02-13 12:22 | PDOC.PN ---
- Subjective Encounter Start Date: 02/13/19 Encounter Start Time: 08:15 Patient seen and examined. No new complaints. No overnight events - Objective Resuscitation Status - Order Detail: 02/10/19 17:51 Resuscitation Status Routine Resuscitation Status: FULL: Full Resuscitation MAR Reviewed: Yes Vital Signs & Weight: Vital Signs (12 hours) Temp Pulse Resp BP Pulse Ox 02/13/19 11:23 97.6 F 90 18 120/87 98 02/13/19 08:00 97.9 F 80 18 136/87 98 02/13/19 04:13 97.7 F 112 H 20 146/93 H 96 Weight Admit Weight 197 lb 4.8 oz Weight 197 lb 4.8 oz I&O: 02/12/19 02/13/19 02/14/19 06:59 06:59 06:59 Intake Total 3760 1905 Output Total 4265 3285 Balance -505 1380 Result Diagrams: 02/13/19 04:33 02/13/19 04:33 Phys Exam - Physical Examination Constitutional: NAD HEENT: PERRLA, moist MMs, sclera anicteric Neck: no JVD, supple Respiratory: no wheezing, no rales, no rhonchi Cardiovascular: RRR, no significant murmur, no rub Gastrointestinal: soft, non-tender, no distention, positive bowel sounds Musculoskeletal: no edema, pulses present Neurological: non-focal, normal sensation Lymphatic: no nodes Psychiatric: normal affect, A&O x 3 Skin: no rash, normal turgor Dx/Plan (1) Epidural abscess Code(s): G06.2 - EXTRADURAL AND SUBDURAL ABSCESS, UNSPECIFIED Status: Acute (2) Lactic acidosis Code(s): E87.2 - ACIDOSIS Status: Acute (3) Retropharyngeal abscess Code(s): J39.0 - RETROPHARYNGEAL AND PARAPHARYNGEAL ABSCESS Status: Acute (4) Sepsis Code(s): A41.9 - SEPSIS, UNSPECIFIED ORGANISM Status: Acute (5) Transaminitis Code(s): R74.0 - NONSPEC ELEV OF LEVELS OF TRANSAMNS & LACTIC ACID DEHYDRGNSE Status: Acute (6) Hypertension Code(s): I10 - ESSENTIAL (PRIMARY) HYPERTENSION Status: Chronic (7) Amphetamine abuse Code(s): F15.10 - OTHER STIMULANT ABUSE, UNCOMPLICATED Status: Acute (8) Chronic hepatitis C Code(s): B18.2 - CHRONIC VIRAL HEPATITIS C Status: Chronic (9) MSSA bacteremia Code(s): R78.81 - BACTEREMIA Status: Acute - Plan cont current plan of care, continue antibiotics * medication reviewed as below * symptomatic treatment * continue oxacillin * picc line * social work for discharge planning. Review of Systems - Review of Systems ENT: negative: Ear Pain, Ear Discharge, Nose Pain, Nose Discharge, Nose Congestion, Mouth Pain, Mouth Swelling, Throat Pain, Throat Swelling, Other Respiratory: negative: Cough, Dry, Shortness of Breath, Hemoptysis, SOB with Excertion, Pleuritic Pain, Sputum, Wheezing Cardiovascular: negative: chest pain, palpitations, orthopnea, paroxysmal nocturnal dyspnea, edema, light headedness, other Gastrointestinal: negative: Nausea, Vomiting, Abdominal Pain, Diarrhea, Constipation, Melena, Hematochezia, Other Genitourinary: negative: Dysuria, Frequency, Incontinence, Hematuria, Retention , Other Musculoskeletal: negative: Neck Pain, Shoulder Pain, Arm Pain, Back Pain, Hand Pain, Leg Pain, Foot Pain, Other Skin: negative: Rash, Lesions, Vincenzo, Bruising, Other - Medications/Allergies Allergies/Adverse Reactions: Allergies Allergy/AdvReac Type Severity Reaction Status Date / Time ANTIHISTAMINES Allergy Uncoded 02/10/19 18:01 Medications: Current Medications Hydrocodone Bitart/Acetaminophen ([place] 5/325) 1 tab PO Q4H PRN PRN Reason: Moderate Pain (4-6) Last Admin: 02/13/19 09:25 Dose: 1 tab Artificial Tears (Tears Naturale) 2 drop EA EYE PRN PRN PRN Reason: Dry Eyes Bisacodyl (Dulcolax) 10 mg [place] DAILYPRN PRN PRN Reason: Constipation Calcium Carbonate (Tums) 1,000 mg PO Q4H PRN PRN Reason: Heartburn or Indigestion Famotidine (Pepcid) 20 mg PO BID MARCELINO Last Admin: 02/13/19 09:25 Dose: 20 mg Guaifenesin (Robitussin Sf) 200 mg PO Q4H PRN PRN Reason: Cough Hydralazine HCl (Apresoline) 10 mg SLOW IVP Q4H PRN PRN Reason: SBP > 180 and HR < 70 Oxacillin Sodium 2 gm/ Sodium (Chloride) 100 mls @ 200 mls/hr IVPB Q4HR MARCELINO Last Admin: 02/13/19 09:25 Dose: 100 mls Labetalol HCl (Normodyne) 20 mg SLOW IVP Q4H PRN PRN Reason: SBP > 180 and HR >/= 70 Loperamide HCl (Imodium) 2 mg PO PRN PRN PRN Reason: Diarrhea/Loose Stools Loratadine (Claritin) 10 mg PO DAILYPRN PRN PRN Reason: Sinus Symptoms Lorazepam (Ativan) 1 mg SLOW IVP Q4H PRN PRN Reason: Anxiety/Agitation Last Admin: 02/12/19 00:14 Dose: 1 mg Mineral Oil/White Petrolatum (Eucerin Cream) 0 gm TOP BIDPRN PRN PRN Reason: Dry Skin Morphine Sulfate (Morphine) 4 mg SLOW IVP Q4H PRN PRN Reason: Moderate to Severe Pain (6-10) Last Admin: 02/11/19 03:53 Dose: 4 mg Morphine Sulfate (Morphine) 2 mg SLOW IVP Q4H PRN PRN Reason: Mild-Moderate Pain (1-5) Ondansetron HCl (Zofran) 4 mg IVP Q6H PRN PRN Reason: Nausea/Vomiting Last Admin: 02/12/19 20:57 Dose: 4 mg Ondansetron HCl (Zofran Odt) 4 mg SL Q6H PRN PRN Reason: Nausea/Vomiting Senna/Docusate Sodium (Senokot S) 2 tab PO BID PRN PRN Reason: Constipation Sodium Chloride ([place] Nasal [place] 0.65%) 0 ml EA NARE QIDPRN PRN PRN Reason: Nasal Congestion Throat Lozenges (Cepastat Lozenges) 1 miriam PO Q2H PRN PRN Reason: Sore Throat Zolpidem Tartrate (Ambien) 5 mg PO HSPRN PRN PRN Reason: Insomnia
[2019-02-13 15:14] LABS: Hep C PCR-Quant HCV Not Detected IU/mL (.)
[2019-02-13 17:09] VITALS: BP 126/87; TEMP 98.1
--- NOTE | 2019-02-13 17:42 | PRG ---
DATE OF SERVICE: 02/13/2019 SUBJECTIVE: Mr. Landaverde has still a little bit of paranoid ideation. He denies any respiratory symptoms. No abdominal pain or diarrhea. He has some pain in the neck area. OBJECTIVE: VITAL SIGNS: His T-max 98.3, blood pressure 120/87, pulse 90, respirations 18. GENERAL: Awake, alert, oriented. LUNGS: Clear. HEART: S1 and S2, regular rate. MUSCULOSKELETAL: Little bit of shoulder pain and neck pain. ABDOMEN: No abdominal tenderness. LABORATORY DATA: White cell count 10.6, hemoglobin 12.1, platelets 674. Sodium 144, creatinine 0.66. Hepatitis C RNA PCR was not detected. HIV nonreactive. 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 The plan is for discharge on Rocephin and treat until the end of March. Weekly labs. Job ID: [id number]
--- NOTE | 2019-02-14 07:34 | DIS ---
DATE OF ADMISSION: 02/10/2019 DATE OF DISCHARGE: 02/13/2019 PRIMARY CARE PHYSICIAN: [facility] Call Admission. DISCHARGE DISPOSITION: Home, with outpatient IV antibiotic therapy. PRIMARY DISCHARGE DIAGNOSIS: Retropharyngeal abscess with epidural extension. SECONDARY DISCHARGE DIAGNOSES: Hypertension, chronic hepatitis C, recent admission at other hospital for methicillin-susceptible Staphylococcus aureus bacteremia, sepsis, lactic acidosis, polysubstance abuse. PRIMARY PROCEDURE/OPERATION: Drainage of retropharyngeal abscess by Dr. Salas Jones. RADIOLOGICAL INVESTIGATION: Echocardiography, soft tissue neck CT scan. SIGNIFICANT LABORATORY DATA: Hemoglobin 12.1, creatinine 0.66. DISCHARGE MEDICATION: Rocephin 2 g IV daily. CONTRAINDICATION: None. CODE STATUS: Full code. INPATIENT ACID EXTRACTOR: ENT doctor, Dr. Salas Jones. Infection doctor, Dr. Mari. TEST RESULTS PENDING ON DISCHARGE: None. ALLERGIES: ANTIHISTAMINE. DISCHARGE PLAN: Posthospital, the patient will follow up with Dr. Mair, Dr. Salas Jones as instructed. The patient will get outpatient IV antibiotic therapy through our hospital. HOSPITAL COURSE: This is a 48-year-old male who was admitted by Dr. Moreno, please see her H and P for further details. This patient was admitted to other hospital where he left AMA. He has polysubstance abuse and amphetamine abuse. He was admitted there for sepsis, lactic acidosis, MSSA bacteremia. There was plan for doing echocardiography, but the patient left AMA and that is why we did echocardiography during this admission, which was negative for any vegetation. This patient had a retropharyngeal abscess with epidural extension. Neurosurgeon was consulted and they recommended that conservative therapy required. ENT doctor did drainage of large retropharyngeal abscess. The patient had significant improvement. His sepsis criteria completely resolved by the time of discharge. With help of catalytic case operator, we arranged outpatient IV antibiotic therapy. Healthy lifestyle measure discussed with the patient. Dr. Mari, infection doctor, recommended to continue IV Rocephin till end of March. The patient will get IV antibiotic therapy through our hospital. The patient is seen and examined at bedside today. Please see my progress note from today for further details. Job ID: [id number]
== END 2019-02-13 17:51 | disposition home or self-care (01) | DRG 853 ==
LOC: ERS 12:01 → SDC 17:43 → IMCU/EMU 17:50 → SURG A 19:55
PROVIDERS: ADMIT Internal Medicine; ATTEND Internal Medicine
PROC: 0C9M00Z Drainage of Pharynx with Drainage Device, Open Approach (ICD-10-PCS; principal; 2019-02-10)
DX: A41.01 Sepsis due to Methicillin susceptible Staphylococcus aureus (principal); G06.2 Extradural and subdural abscess, unspecified; J39.0 Retropharyngeal and parapharyngeal abscess; E87.2 Acidosis; I10 Essential (primary) hypertension; R74.0 Nonspecific elevation of levels of transaminase and lactic acid dehydrogenase [LDH]; F15.10 Other stimulant abuse, uncomplicated; B18.2 Chronic viral hepatitis C
CPT/HCPCS: 36415; 36416; 70491; 80048; 80053; 80074; 80306; 81003; 83605; 85025; 85652; 86140; 87040; 87070; 87086; 87205; 87389; 87522; 87804; 93306; 96361; 96365; 96375; C1751; J0696; J1100; J1644; J1885; J2001; J2060; J2250; J2270; J2405; J2700; J2704; J2765; J3010; J3370; J3490; J7050; Q9966; S0028

== ENCOUNTER 2019-02-17 17:51 | Emergency (ER) | payer OTHER ==
[2019-02-17 19:22] LABS: #Basophils 0.1 thou/uL (0.0-0.2); #Lymphocytes 1.9 thou/uL (1.20-3.40); #Monocytes 1.2 thou/uL (0.11-0.59); #Neutrophils 7.8 thou/uL (1.40-6.50); %Basophils 0.9 % (0.0-1.0); %Eosinophils 0.4 % (0.0-10.0); %Lymphocytes 16.9 % (21.0-51.0); %Monocytes 11.2 % (0.0-10.0); %Neutrophils 70.6 % (42.0-75.0); Hemoglobin 12.7 g/dL (14.0-18.0); Mean Corpuscular HGB CONC 32.9 g/dL (32.0-36.0); Mean Corpuscular Hemoglobin 32.4 pg (27.0-31.0); Mean Corpuscular Volume 98.3 fL (78.0-98.0); Mean Platelet Volume 5.9 fL (7.4-10.4); Platelet Count 778 thou/uL (130-400); RBC Distribution Width 12.7 % (11.5-14.5); Red Blood Cell (RBC) Count 3.94 mill/uL (4.70-6.10)
[2019-02-17 19:27] LABS: Bilirubin Negative (Negative); Blood, Urine Large (Negative); Clarity CLOUDY (Clear); Glucose, Urine (Dipstick) Negative (Negative); Leukocyte Negative (Negative); Nitrite Negative (Negative); Protein, Urine (Dipstick) Trace mg/dL (Neg-Trace); Specific Gravity, Urine 1.022 (1.002-1.036); Urobilinogen 0.2 mg/dL (0.2-1.0); pH, Urine 5.5 (5.0-9.0)
[2019-02-17 19:30] LABS: Bacteria/HPF None Seen HPF (None Seen); Hyaline Casts/LPF 4-6 HYALINE CAST LPF (0-3 Hyaline); Pathc Cast-AUWi Flag 0.81 (0-2.49); RBC/HPF GREATER THAN 50-TNTC HPF (0-3); Squamous Epithelial 0-3 HPF (0-3); WBC/HPF 0-3 HPF (0-3)
[2019-02-17 19:44] LABS: ALT (SGPT) 22 U/L (8-55); AST (SGOT) 20 U/L (5-34); Albumin 3.6 g/dL (3.5-5.0); Alkaline Phosphatase 87 U/L (40-150); Anion Gap 14 mmol/L (10-20); BUN (Urea Nitrogen) 20 mg/dL (8.9-20.6); Bilirubin, Total 0.5 mg/dL (0.2-1.2); Calc. Creatinine Clearance 0 mL/min (70-130); Calcium 9.3 mg/dL (7.8-10.44); Carbon Dioxide 23 mmol/L (22-29); Chloride 103 mmol/L (98-107); Estimated GFR-MDRD 73; Globulin 3.7 g/dL (2.4-3.5); Glucose 99 mg/dL (70-105); Lipase 26 U/L (8-78); Protein, Total 7.3 g/dL (6.0-8.3); Sodium 136 mmol/L (136-145)
--- NOTE | 2019-02-17 19:55 | CT ---
FCT abdomen noncontrast CT pelvis noncontrast: (Urolithiasis protocol) DATE: 02/17/2019. HISTORY: 48-year-old male with severe right groin pain COMPARISON: None TECHNIQUE: IV injection of iodinated contrast media: None Oral contrast media: None FINDINGS: Other than for urolithiasis, the lack of IV and oral contrast limits the evaluation. There is a 3 x 2 x 2 mm calculus lodged at the right UVJ, at the bladder luminal side, causing mild r ight hydroureter, and minimal right hydronephrosis. There is mild right perirenal edema. There is no calculus within the kidneys. There is a 4.5 x 3 x 3 cm cyst at the upper pole of the left kidney. Wit hin the limitations of a noncontrast scan, no abnormality is identified involving the liver, pancreas , adrenals, or spleen. The appendix is normal. No colonic diverticulitis. No small bowel dilation. Sm all to moderate sized pericardial effusion. Lung bases are grossly clear. IMPRESSION: 1) a 3 mm calculus lodged at the right ureterovesical junction, causing mild right obstructive uropat hy, with mild right hydronephrosis. 2) pericardial effusion.
== END 2019-02-17 20:45 | disposition home or self-care (01) ==
LOC: ERS 17:51
DX: N13.2 Hydronephrosis with renal and ureteral calculous obstruction (principal); F41.9 Anxiety disorder, unspecified; Z87.891 Personal history of nicotine dependence
CPT/HCPCS: 74176; 80053; 81003; 81015; 83690; 85025; 87086

== ENCOUNTER 2019-02-20 04:40 | Emergency (ER) | payer OTHER | END 2019-02-20 05:33 | disposition home or self-care (01) | LOC: ERS 04:40 | DX: T82.898A Other specified complication of vascular prosthetic devices, implants and grafts, initial encounter (principal); F41.9 Anxiety disorder, unspecified; Z87.891 Personal history of nicotine dependence ==

== ENCOUNTER → 2019-02-20 | Day surgery (SDC) | payer OTHER ==
--- NOTE | 2019-02-20 14:38 | SPC ---
SPC CVP LINE PICC INITAL >5 History: [Need for long-term IV access] Comparison: None. Findings: Patient was brought to the specials suite. All questions were answered. Informed consent wa s obtained. Timeout performed. Patient's left arm was prepped and draped in normal sterile fashion. Using ultrasound guidance left b asilic vein was accessed. Over a wire and through a peel-away sheath a basilic PICC was placed using fluoroscopic guidance. Patient tolerated the procedure well without complication. Impression: Technically successful ultrasound and fluoroscopic guided PICC line placement. Fluoroscopy time: 0.2 minutes Dose area product: 1634 mGy centimeter squared
== END ==
LOC: SPEC 13:21
PROVIDERS: ATTEND Internal Medicine Infectious Disease
PROC: 05HY33Z Insertion of Infusion Device into Upper Vein, Percutaneous Approach (ICD-10-PCS; principal; 2019-02-20)
DX: Z45.2 Encounter for adjustment and management of vascular access device (principal); Z88.8 Allergy status to other drugs, medicaments and biological substances
CPT/HCPCS: 36569; C1751

== ENCOUNTER 2019-02-24 06:02 | Inpatient (IN) | payer OTHER ==
[2019-02-24] MEDS ORDERED: cefTRIAXone\\ROCEPHIN 2 GM VIAL ONE (06:40)
[2019-02-24] MEDS ORDERED: Sodium Chloride 0.9% 100 ML ONE (06:40)
[2019-02-24] MEDS ORDERED: Ketorolac Tromethamine 30 MG/ML VIAL ONE (06:40)
[2019-02-24] MEDS ORDERED: Morphine 4 MG/ML VIAL ONE (06:55)
[2019-02-24 07:04] LABS: #Basophils 0.1 thou/uL (0.0-0.2); #Eosinphils 0.1 thou/uL (0.0-0.7); #Lymphocytes 1.8 thou/uL (1.20-3.40); #Monocytes 0.5 thou/uL (0.11-0.59); #Neutrophils 3.7 thou/uL (1.40-6.50); %Eosinophils 1.1 % (0.0-10.0); %Lymphocytes 28.9 % (21.0-51.0); %Monocytes 8.8 % (0.0-10.0); %Neutrophils 60.3 % (42.0-75.0); Hemoglobin 12.9 g/dL (14.0-18.0); Mean Corpuscular HGB CONC 33.9 g/dL (32.0-36.0); Mean Corpuscular Hemoglobin 31.8 pg (27.0-31.0); Mean Corpuscular Volume 93.8 fL (78.0-98.0); Mean Platelet Volume 6.6 fL (7.4-10.4); Platelet Count 560 thou/uL (130-400); RBC Distribution Width 12.5 % (11.5-14.5); Red Blood Cell (RBC) Count 4.05 mill/uL (4.70-6.10); White Blood Cell (WBC) Count 6.2 thou/uL (4.8-10.8)
[2019-02-24 07:14] LABS: Bilirubin Negative (Negative); Blood, Urine Negative (Negative); Clarity CLEAR (Clear); Glucose, Urine (Dipstick) Negative (Negative); Leukocyte Negative (Negative); Nitrite Negative (Negative); Protein, Urine (Dipstick) Negative (Neg-Trace); Urobilinogen 0.2 mg/dL (0.2-1.0); pH, Urine 6.5 (5.0-9.0)
[2019-02-24 07:20] LABS: ALT (SGPT) 21 U/L (8-55); AST (SGOT) 17 U/L (5-34); Albumin 3.7 g/dL (3.5-5.0); Alkaline Phosphatase 95 U/L (40-150); Anion Gap 12 mmol/L (10-20); BUN (Urea Nitrogen) 11 mg/dL (8.9-20.6); Bilirubin, Total 0.5 mg/dL (0.2-1.2); Calc. Creatinine Clearance 0 mL/min (70-130); Calcium 9.5 mg/dL (7.8-10.44); Carbon Dioxide 26 mmol/L (22-29); Chloride 105 mmol/L (98-107); Estimated GFR-MDRD Greater than 90; Globulin 3.6 g/dL (2.4-3.5); Glucose 101 mg/dL (70-105); Potassium 3.4 mmol/L (3.5-5.1); Protein, Total 7.3 g/dL (6.0-8.3); Sodium 140 mmol/L (136-145)
[2019-02-24 07:21] LABS: Medtox Reader # READER 1
[2019-02-24 07:22] LABS: Amphetamine Detected (NotDetected); Barbiturates Screen Not Detected (NotDetected); Benzodiazepine Screen Not Detected (NotDetected); Cocaine Metabolite Screen Not Detected (NotDetected); Medtox Control Line Valid? VALID (VALID); Methadone Not Detected (NotDetected); Methamphetamine Detected (NotDetected); Opiate Screen Not Detected (NotDetected); Oxycodone Screen Not Detected (NotDetected); Phencyclidine (PCP) Not Detected (NotDetected); THC/Cannabinoid Screen Not Detected (NotDetected); Tricyclic Screen Not Detected (NotDetected)
--- NOTE | 2019-02-24 07:54 | CT ---
Exam: CT brain PROVIDED CLINICAL HISTORY: Headache COMPARISON: None FINDINGS: The ventricular system is normal in size and morphology. No evidence for intracranial hemorrhage or mass effect. The extracranial soft tissues and osseous structures demonstrate an unremarkable CT appearance. IMPRESSION: No evidence for intracranial hemorrhage or mass effect.
--- NOTE | 2019-02-24 08:08 | CT ---
EXAM: CT Neck Soft Tissue W Con PROVIDED CLINICAL HISTORY: Retropharyngeal abscess status post drainage COMPARISON: 02/10/2019 FINDINGS: The previously described large multiloculated retropharyngeal abscess with epidural extension demonst rates prominent interval decrease in size with respect to the prior examination. There is persistent significant retropharyngeal soft tissue swelling as well as some persistent noncircumscrib ed retropharyngeal fluid. Rim-enhancing fluid collections are present both right and left of midline at the level of C2, on the left measuring about 2.8 cm in greatest transverse dimension and o n the right measuring about 1.2 cm in greatest transverse dimension. There is no evidence for mediastinal extension. The epidural involvement previously described appears less conspicuous. There is however development of widening of the atlantodental distance to approximately 5 mm. There is cranial migration of the dens with respect to the clivus producing basilar invagination. IMPRESSION: 1. Interval decrease in multiloculated retropharyngeal abscess. 2. Interval development of widening of the atlantodental distance and basilar invagination, suspiciou s for infectious involvement of the craniocervical junction ligamentous structures and resultant instability. Neurosurgical consultation is recommended. Findings discussed with Dr. Alexander 8:01 AM .
[2019-02-24] MEDS ORDERED: ISOVUE-370 76%-LOCM 1 ML ONE (09:29)
[2019-02-24] MEDS ORDERED: Zolpidem Tartrate 5 MG TAB PO PRN (10:04)
[2019-02-24] MEDS ORDERED: Ondansetron ODT 4 MG TAB PO PRN (10:04)
[2019-02-24] MEDS ORDERED: hydrALAZINE 20 MG/ML VIAL SLOW IVP PRN (10:11)
[2019-02-24] MEDS ORDERED: Labetalol HCl 100 MG/20 ML VIAL SLOW IVP PRN (10:11)
--- NOTE | 2019-02-24 11:05 | HP ---
[facility] Call admission for [facility]. The patient with a recent history of retropharyngeal abscess with epidural extension from Staphylococcus aureus. He was discharged on IV Rocephin with a PICC line. Since hospitalization, the pain in his posterior neck has continued. Three days ago, his PICC line came out. He did have fever, chills, sweats x1. At that point, PICC line was replaced. He returns to the hospital because of failure to improve. PAST MEDICAL HISTORY: Pertinent for the aforementioned retropharyngeal abscess. 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 CURRENT MEDICATIONS: Rocephin IV 2 g daily and Tylenol with Codeine p.r.n. pain. ALLERGIES: MORPHINE MAKES HIM GO CRAZY. HE STATES HE CANNOT TAKE ANTIHISTAMINES. PAST SURGICAL HISTORY: He has had surgery to remove kidney stones in the past. He had incision and drainage of retropharyngeal abscess 02/10/2019. FAMILY HISTORY: Pertinent for dyslipidemia, hypertension, Crohn disease and multiple members of the family with drug and alcohol abuse. SOCIAL HISTORY: . Nonsmoker, nondrinker. States he used drugs in the past, has not done so in 10 years. REVIEW OF SYSTEMS: GENERAL: He has had malaise, lack of energy with the present illness. He has some dizziness on rising. EYES: No double vision, blurred vision, or flashing lights. EAR, NOSE, AND THROAT: He has had some increased difficulty with swallowing since his surgery. No nose bleeds. No ear pain or drainage. CARDIAC: No chest pain, orthopnea, or paroxysmal nocturnal dyspnea. RESPIRATION: No cough, wheezing, or asthma. GASTROINTESTINAL: No nausea, vomiting, diarrhea, constipation, or abdominal pain. GENITOURINARY: No hematuria or dysuria. MUSCULOSKELETAL: No focal weakness. No numbness or tingling. PSYCHIATRIC: No anxiety or depression. SKIN: No bruising, bleeding or rash. HEME/LYMPH: No tender or swollen lymph nodes in axilla, inguinal, or cervical area. PHYSICAL EXAMINATION: GENERAL: He is alert gentleman, uncomfortable. VITAL SIGNS: Blood pressure 145/103, pulse 110, respirations 20, temperature was 97.5. HEAD, EYES, EARS, NOSE, AND THROAT: Revealed pupils are equal, round, and reactive to light. Extraocular movements are intact. Sclerae are white. Tympanic membranes clear. Nose clear. Oral mucous membranes are wet. Dental hygiene is fair. NECK: In a brace collar. No jugular venous distention, adenopathy, or thyromegaly. CHEST: Clear to auscultation and percussion. HEART: Regular rate and rhythm. First second second heart sounds are clear. There are no appreciated murmurs or gallops. ABDOMEN: Soft. Bowel sounds are normal. There is no hepatosplenomegaly. No masses. No rebound. No bruits. EXTREMITIES: Reveal no cyanosis, clubbing, or edema. PULSES: Carotid, radial, femoral, and dorsalis pedis pulses intact and symmetric. SKIN: Warm and dry without bruises or rash. HEME/LYMPH: No tender or swollen lymph nodes in the axilla, inguinal or cervical area. No petechial rashes in mucous membranes or his nail beds. NEUROLOGICAL: Cranial nerves 2 through 12 are intact. Deep tendon reflexes are symmetric. Toes are downgoing. Strength is 100% in the extensor flexors of the wrist and extensor flexors of the elbow, extensor flexors of the knee, extensor flexors of the ankle. LABORATORY DATA: White count 6.2, platelet count 560,000, hemoglobin 12.9. Toxicology, he has meth. Urine is clear. Comp metabolic profile normal except for a potassium of 3.4. C-reactive protein 0.69. Brain CT, no acute intracranial process, reviewed by me. Soft tissue neck CT, a somewhat decreased multiloculated retropharyngeal abscess. Widening of the atlantodental distance and basilar invagination suspicious for infectious process. No EKG has been done, one will be ordered and reviewed. ADMITTING DIAGNOSES: 1. Retropharyngeal abscess with extension and widening of the atlantodental distance suspicious for involvement of craniocervical junction ligamentous structures. 2. Hypertension. 3. Dysphagia. 4. Methamphetamine abuse. PLAN: 1. Dr. Mari has been consulted, has suggested changing antibiotic to q.[address] Ancef[address] 2[address] Dr. Dooley will be consulted. 3. Antibiotics will be administered per Dr. Mari. Job ID: [id number]
[2019-02-24 11:31] VITALS: BMI 26.8
[2019-02-24] MEDS: CEFAZOLIN 2 GM in Premix Bag 1 BAG IVPB SCH ×2 (12:36→18:04)
--- NOTE | 2019-02-24 14:17 | CON ---
DATE OF CONSULTATION: 02/24/2019 HISTORY OF PRESENT ILLNESS: Mr. Landaverde is a 48-year-old male, who reported to the emergency department today for cervical neck pain and decreased range of motion. The patient last seen in the ED on 02/10/2019 for hypertrophy and gluteal abscess. This was surgically drained, and the patient was started on a PICC line and antibiotics. He has been continuing treatment, still has his PICC line. He actually has planned to see Dr. Mari today for followup care. While the patient was in the emergency department, a CT of the cervical spine was done, it was showing improvement on the abscess; however, progression widening of atlantodental distance with basilar invagination suspicious for infectious involvement in the craniocervical junction ligamentous structures. Neurosurgery was consulted. I see the patient is resting comfortably in his hospital bed. He has an active collar on. He states that pain has improved since he came in. The patient denies any numbness or tingling or strength deficits. The patient is neurologically intact. REVIEW OF SYSTEMS: A 10-point review of systems has been completed and is negative other than stated in the above HPI. PAST MEDICAL HISTORY: History of West Nile virus in 2011, MSSA in the blood, neurologic disease, meningitis, renal disease, kidney stents, and does have a PICC line in right upper arm. PAST SURGICAL HISTORY: Surgery to remove kidney stones, stent placed, and then drainage in January for the retropharyngeal abscess. SOCIAL HISTORY: The patient denies alcohol use. He is a former drug user, abused cocaine. He states that he quit this, years ago. He is a former tobacco user. Smokes cigarettes and quit smoking in 2011. ALLERGIES: ANTIHISTAMINES, MORPHINE. MEDICATIONS: codeine and ceftriaxone. PHYSICAL EXAMINATION: VITAL SIGNS: Blood pressure 145/103, heart rate 110, respirations 20, O2 saturation 96% on room air, temperature 97.5. CONSTITUTION: The patient is alert and oriented. Hypertensive, tachycardic, afebrile. He does not appear toxic. HEENT: Head is normocephalic and atraumatic. Pupils are equal, round, and reactive to light. Extraocular movements are intact. Hearing is intact. Moist mucous membranes. NECK: Pain to palpation. RESPIRATORY: Normal work of breathing on room air. EXTREMITIES: Motor; the patient is moving all 4 extremities well. 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 Sensation equal bilaterally in all 4 extremities. NEUROLOGIC: The patient is awake, alert, and oriented x3. Normal attention and concentration. Speech is spontaneous and fluent. Cranial nerves 2 through 12 are tested and intact. There are no focal motor or sensory deficits noted. IMAGING STUDIES: CT neck soft tissue with contrast; 1. There is intramural decrease in the multiloculated retropharyngeal abscess. 2. Intervertebral development of widening of the atlantodental distance and basilar invagination suspicious for infectious involvement in the craniocervical junction ligamentous structures and resulted in stability. ASSESSMENT AND PLAN: This is a 48-year-old male who has a retropharyngeal abscess, which is being treated with Infectious Disease, PICC line, and antibiotics. This infection appears to be improving based on CT imaging. Consequently, the infection has proved to have some progression in widening of the laxity of the ligamentous base between C1 and C2. The treatment for this given that he does not have any neurologic deficits at this time would be a C-collar, he will need to wear at all times. He will be given a second [place] collar that he can switch out for showers. We will follow the patient on an outpatient basis. He will continue treatment with Medicine and Infectious Disease, and if there are any neurologic changes, the patient will need to have a halo placed. Job ID: [id number]
[2019-02-24] MEDS: Acetaminophen 325 MG TAB PO PRN (17:23)
[2019-02-24] MEDS: HYDROcodone/Acetaminophen 7.5/325 mg Tablet PO PRN (17:23)
--- NOTE | 2019-02-24 21:30 | PRG ---
DATE OF SERVICE: 02/24/2019 HISTORY OF PRESENT ILLNESS: Mr. Londono is back in the hospital with worsening neck pain which has increased for the past 2 days. He had recently diagnosed with MSSA bacteremia and retropharyngeal abscess, initially seen at [facility] and then an MRI showed C1 and C2 infectious process. He was transferred here and had an I and D by ENT of the retropharyngeal abscess and then continued on Rocephin infusions for the outpatient setting. Now, his neck is getting more painful and he came to the emergency room and initial BP 140/100, pulse 122, respirations 20, temperature 97.5. He is in some distress from the pain. No visual symptoms, sore throat, odynophagia, dysphagia. No dyspnea or chest pain. No abdominal pain or diarrhea. No objective symptoms. Good strength in extremities. Awake, oriented. MEDICAL HISTORY: Includes hypertension, reported West Nile virus infection. Some form of hepatitis in the past, probably hepatitis C. Nephrolithiasis with lithotripsy. ALLERGIES: NONE. SOCIAL HISTORY: He is . Apparently, lives in the area and he still lives in [place]. 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 Does not smoke at this time. FAMILY HISTORY: Hypertension, Crohn disease. MEDICATIONS: Dulcolax, had been on Rocephin in the outpatient setting, labetalol, loratadine, lorazepam, morphine. PHYSICAL EXAMINATION: VITAL SIGNS: T-max 97.7, blood pressure 130/90, pulse 108, respirations 18, O2 saturation 98%. NECK: Tenderness in the posterior neck area. Multiple tattoos. No lymphadenopathy. Limitation of range of motion of the neck from pain. HEENT: Ocular movements conjugate. Oral cavity normal. LUNGS: With clear breath sounds. HEART: S1 and S2, regular rate. No S3 or S4. No murmurs. ABDOMEN: Soft. Not distended or tender. No ascites. No bladder distention. No joint inflammatory activity. Moves extremities equally. Cognitive function appears to be intact. LABORATORY DATA: White cell count 6.2, hemoglobin 12.9, platelets 560. Sodium 140, creatinine 0.77. Normal liver profile. Urinalysis normal. Previous microbiology from [facility] showed methicillin sensitive Staph aureus. He had a soft tissue neck CT done at this time, which showed multiloculated retropharyngeal abscess with decrease in size. ASSESSMENT: History of IV drug use in the past, now with retropharyngeal abscess due to methicillin-susceptible staphylococcus aureus with involvement of the upper C-spine structures, now with worsening pain. Switch him to cefazolin 2 g q.8 and repeat MRI of the C-spine with contrast. Job ID: [id number]
[2019-02-25] MEDS: CEFAZOLIN 2 GM in Premix Bag 1 BAG IVPB SCH ×3 (02:55→18:00)
[2019-02-25 07:01] LABS: #Basophils 0.1 thou/uL (0.0-0.2); #Eosinphils 0.2 thou/uL (0.0-0.7); #Lymphocytes 2.1 thou/uL (1.20-3.40); #Monocytes 0.4 thou/uL (0.11-0.59); #Neutrophils 2.4 thou/uL (1.40-6.50); %Eosinophils 4.4 % (0.0-10.0); %Monocytes 7.8 % (0.0-10.0); %Neutrophils 45.8 % (42.0-75.0); Hemoglobin 12.7 g/dL (14.0-18.0); Mean Corpuscular HGB CONC 32.7 g/dL (32.0-36.0); Mean Corpuscular Hemoglobin 31.8 pg (27.0-31.0); Mean Corpuscular Volume 97.4 fL (78.0-98.0); Mean Platelet Volume 7.1 fL (7.4-10.4); Platelet Count 416 thou/uL (130-400); RBC Distribution Width 12.8 % (11.5-14.5); Red Blood Cell (RBC) Count 3.99 mill/uL (4.70-6.10); White Blood Cell (WBC) Count 5.2 thou/uL (4.8-10.8)
[2019-02-25 07:08] LABS: Anion Gap 11 mmol/L (10-20); BUN (Urea Nitrogen) 10 mg/dL (8.9-20.6); Calc. Creatinine Clearance 140 mL/min (70-130); Calcium 9.2 mg/dL (7.8-10.44); Carbon Dioxide 26 mmol/L (22-29); Chloride 107 mmol/L (98-107); Estimated GFR-MDRD Greater than 90; Glucose 84 mg/dL (70-105); Potassium 3.5 mmol/L (3.5-5.1); Sodium 140 mmol/L (136-145)
[2019-02-25] MEDS ORDERED: Calcium Carbonate 500 MG ChewTAB PO PRN (08:07)
[2019-02-25] MEDS ORDERED: Loperamide HCl 2 MG CAP PO PRN (08:07)
[2019-02-25] MEDS ORDERED: Diabetic Tussin 200 MG/10 ML UDCUP PO PRN (08:07)
[2019-02-25] MEDS ORDERED: Senokot S 8.6-50 MG TAB PO PRN (08:07)
[2019-02-25] MEDS ORDERED: Eucerin (Mineral Oil/Petrolatum,White) 30 gm Jar TOP PRN (08:07)
[2019-02-25] MEDS ORDERED: Loratadine 10 MG TAB PO PRN (08:07)
[2019-02-25] MEDS ORDERED: Ondansetron PF 4 MG/2 ML Vial IVP PRN (08:07)
[2019-02-25] MEDS ORDERED: Bisacodyl 5 MG TAB PO PRN (08:07)
[2019-02-25] MEDS ORDERED: Sodium Chloride 0.65% Nasal 44 ML BOT EA NARE PRN (08:07)
[2019-02-25] MEDS ORDERED: Artificial Tears 18 DROP/0.9 ML EA EYE PRN (08:07)
[2019-02-25] MEDS ORDERED: Cepastat Lozenges 1 LOZ PO PRN (08:07)
[2019-02-25] MEDS ORDERED: Fentanyl 100 MCG/2 ML VIAL SLOW IVP PRN (08:08)
[2019-02-25] MEDS ORDERED: Ketorolac Tromethamine 30 MG/ML VIAL IVP PRN (08:08)
--- NOTE | 2019-02-25 08:09 | PRG ---
DATE OF SERVICE: 02/25/2019 SUBJECTIVE: I personally interviewed and examined the patient, and agreed with documentation of Padmini Ashford PA-C, dated 02/24/2019. Briefly, Blake Landaverde is a 48-year-old gentleman, who, by report, has used IV drugs in the past. He was found to have a retropharyngeal abscess that certainly been managed by Otolaryngology and Infectious Disease. The organism was methicillin resistant Staph aureus. He returned to the hospital yesterday with increased pain in his neck. Current inability to move the neck. He was admitted overnight. CT examination of the craniocervical junction showed some settling of the dens into the foramen magnum and some widening of the atlantoaxial interval. There is still significant amount of soft tissue density in the retropharyngeal space at the base of the skull. CT imaging that showed CSF space anterior and posterior to the cord at the craniocervical junction and at C1-C2 somewhat thankfully. Overnight, Mr. Landaverde had fever. Other vital signs have been stable. This morning, there was cervical collar in place, but it was not positioned appropriately. Chin is behind the collar and his head is unsupported. I replaced the collar myself in the proper fashion. His neurological examination of the extremities is good. IMAGING FINDINGS: As described above. ASSESSMENT AND PLAN: The plan for Mr. Landaverde is to treat him in the cervical orthosis until he is well beyond his antibiotic therapy and the infection is completely gone. If he feel there are neurological deficits of the extremity, he can be treated with halo vest. Surgical intervention for this is something that I would like to avoid given the infection and the possibility of a chronic unresolved infectious process around the spinal instrumentation. Mr. Landaverde will need a [place] collar to be used for showering. A few weeks after the antibiotics ceased, we will see him in the office with followup imaging. I will wean the collar at that appointment. We will sign off for now during this hospitalization, however, we are available for further questions if any arise. Job ID: [id number] [facility]
[2019-02-25] MEDS: Saccharomyces boulardii 250 MG CAP PO SCH (10:48)
[2019-02-25] MEDS: Acetaminophen 325 MG TAB PO PRN (10:52)
--- NOTE | 2019-02-25 11:33 | MRI ---
PRE AND POSTCONTRAST ENHANCED MRI CERVICAL SPINE: Comparison made to previous CT of the soft tissue neck from 02/24/2019. HISTORY: FINDINGS: Pre and postcontrast enhanced MRI images of cervical spine demonstrates areas of definite signal hete rogeneity and enhancement in the prevertebral space starting from the level of the clivus extending inferiorly to the anterior C7 level. Small abscesses also seen anterior to the prevertebral space at the C2 level. Enhancement extends into the anterior epidural space of C1, C2 levels. There is some fluid in the atlantoaxial joint. This space is increased to approximately 6.4 mm. Some edema is seen in the odontoid as well as diffuse enhancement. Osteomyelitis cannot be excluded. C2-3: Unremarkable. C3-4: Unremarkable C4-5: Unremarkable C5-6: There is some disc desiccation seen. There is moderate bilateral C5-6 neural foraminal narrowin g due to uncovertebral osteophyte hypertrophy next C6-7: Minimal bilateral neural foraminal narrowing seen due to osteophyte encroachment. The central c anal is patent. C7-T1: Unremarkable. Small area of myositis also seen in the left levator scapulae at the level of C4 compatible with poss ible myositis. IMPRESSION: Prevertebral soft tissue edema with prevertebral abscess. There is abnormal fluid in the C1-2 joint a s well as edema and enhancement of the dens itself. Transcribed Date/Time: 02/25/2019 11:38 AM
--- NOTE | 2019-02-25 12:21 | PDOC.PN ---
- Subjective Encounter Start Date: 02/25/19 Encounter Start Time: 10:00 Patient seen and examined. No new complaints. No overnight events - Objective Resuscitation Status - Order Detail: 02/24/19 10:01 Resuscitation Status Routine Resuscitation Status: FULL: Full Resuscitation MAR Reviewed: Yes Vital Signs & Weight: Vital Signs (12 hours) Temp Pulse Resp BP Pulse Ox 02/25/19 08:10 97.7 F 80 18 150/96 H 96 02/25/19 04:00 97.8 F 105 H 18 134/93 H 96 02/25/19 00:48 97.9 F 107 H 16 136/80 97 Weight Weight 187 lb I&O: 02/24/19 02/25/19 02/26/19 06:59 06:59 06:59 Intake Total 700 480 Output Total 900 Balance 700 -420 Result Diagrams: 02/25/19 05:55 02/25/19 05:55 Phys Exam - Physical Examination Constitutional: NAD HEENT: PERRLA, moist MMs, sclera anicteric Neck: no JVD, supple Respiratory: no wheezing, no rales, no rhonchi Cardiovascular: RRR, no significant murmur, no rub Gastrointestinal: soft, non-tender, no distention Musculoskeletal: no edema, pulses present Neurological: non-focal, normal sensation Lymphatic: no nodes Psychiatric: normal affect Skin: no rash, normal turgor Dx/Plan (1) Discitis of [id number]-[id number] region Code(s): M46.41 - DISCITIS, UNSPECIFIED, [id number] REGION Status : Acute (2) Chronic hepatitis C Code(s): B18.2 - CHRONIC VIRAL HEPATITIS C Status: Chronic (3) H/O bacteremia Code(s): Z87.898 - PERSONAL HISTORY OF OTHER SPECIFIED CONDITIONS Status: Chronic (4) H/O drug abuse Code(s): Z87.898 - PERSONAL HISTORY OF OTHER SPECIFIED CONDITIONS Status: Chronic (5) H/O retropharyngeal abscess Code(s): Z87.09 - PERSONAL HISTORY OF OTHER DISEASES OF THE RESPIRATORY SYSTEM Status: Chronic (6) Hypertension Code(s): I10 - ESSENTIAL (PRIMARY) HYPERTENSION Status: Chronic - Plan cont current plan of care, continue antibiotics * medication reviewed as below * symptomatic treatment * today MRI * continue IV cefazolin * follow culture. Review of Systems - Review of Systems ENT: negative: Ear Pain, Ear Discharge, Nose Pain, Nose Discharge, Nose Congestion, Mouth Pain, Mouth Swelling, Throat Pain, Throat Swelling, Other Respiratory: negative: Cough, Dry, Shortness of Breath, Hemoptysis, SOB with Excertion, Pleuritic Pain, Sputum, Wheezing Cardiovascular: negative: chest pain, palpitations, orthopnea, paroxysmal nocturnal dyspnea, edema, light headedness, other Gastrointestinal: negative: Nausea, Vomiting, Abdominal Pain, Diarrhea, Constipation, Melena, Hematochezia, Other Genitourinary: negative: Dysuria, Frequency, Incontinence, Hematuria, Retention , Other Musculoskeletal: Neck Pain. negative: Shoulder Pain, Arm Pain, Back Pain, Hand Pain, Leg Pain, Foot Pain, Other Skin: negative: Rash, Lesions, Vincenzo, Bruising, Other - Medications/Allergies Allergies/Adverse Reactions: Allergies Allergy/AdvReac Type Severity Reaction Status Date / Time morphine Allergy Verified 02/24/19 12:34 ANTIHISTAMINES Allergy Uncoded 02/10/19 18:01 Medications: Current Medications Acetaminophen (Tylenol) 650 mg PO Q4H PRN PRN Reason: Headache/Fever/Mild Pain (1-3) Last Admin: 02/25/19 10:52 Dose: 650 mg Hydrocodone Bitart/Acetaminophen ([place] 7.5/325) 1 tab PO Q4H PRN PRN Reason: Moderate Pain (4-6) Last Admin: 02/24/19 17:23 Dose: 1 tab Artificial Tears (Tears Naturale) 2 drop EA EYE PRN PRN PRN Reason: Dry Eyes Bisacodyl (Dulcolax) 10 mg PO DAILYPRN PRN PRN Reason: Constipation Calcium Carbonate (Tums) 1,000 mg PO Q4H PRN PRN Reason: Heartburn or Indigestion Fentanyl (Sublimaze) 25 mcg SLOW IVP Q2H PRN PRN Reason: Pain Guaifenesin (Robitussin Sf) 200 mg PO Q4H PRN PRN Reason: Cough Hydralazine HCl (Apresoline) 10 mg SLOW IVP Q4H PRN PRN Reason: SBP > 180 and HR < 70 Last Admin: 02/24/19 15:12 Dose: 10 mg Cefazolin Sodium/Dextrose 2 gm (/ Device) 50 mls @ 100 mls/hr IVPB 0300,1100, 1900 [facility] Last Admin: 02/25/19 10:41 Dose: 50 mls Ketorolac Tromethamine (Toradol) 15 mg IVP Q6H PRN PRN Reason: Pain Stop: 03/02/19 08:09 Labetalol HCl (Normodyne) 20 mg SLOW IVP Q4H PRN PRN Reason: SBP > 180 and HR >/= 70 Loperamide HCl (Imodium) 2 mg PO PRN PRN PRN Reason: Diarrhea/Loose Stools Loratadine (Claritin) 10 mg PO DAILYPRN PRN PRN Reason: Sinus Symptoms Mineral Oil/White Petrolatum (Eucerin Cream) 0 gm TOP BIDPRN PRN PRN Reason: Dry Skin Ondansetron HCl (Zofran Odt) 4 mg PO Q6H PRN PRN Reason: Nausea/Vomiting Ondansetron HCl (Zofran) 4 mg IVP Q6H PRN PRN Reason: Nausea/Vomiting Saccharomyces Boulardii (Florastor) 250 mg PO DAILY [facility] Last Admin: 02/25/19 10:48 Dose: 250 mg Senna/Docusate Sodium (Senokot S) 2 tab PO BID PRN PRN Reason: Constipation Sodium Chloride ([place] Nasal [place] 0.65%) 0 ml EA NARE QIDPRN PRN PRN Reason: Nasal Congestion Sodium Chloride (Flush - Normal Saline) 10 ml IVF Q12HR [facility] Last Admin: 02/25/19 10:46 Dose: 10 ml Sodium Chloride (Flush - Normal Saline) 10 ml IVF PRN PRN PRN Reason: Saline Flush Throat Lozenges (Cepastat Lozenges) 1 miriam PO Q2H PRN PRN Reason: Sore Throat Zolpidem Tartrate (Ambien) 5 mg PO HSPRN PRN PRN Reason: Insomnia
--- NOTE | 2019-02-25 16:15 | PRG ---
DATE OF SERVICE: 02/25/2019 SUBJECTIVE: Feeling better. Still with some neck pain. No respiratory symptoms or abdominal pain. No diarrhea. OBJECTIVE: VITAL SIGNS: T-max 97.9, BP 130/90, pulse 105, respirations 18 to 20. GENERAL: Appears in no distress. LUNGS: Clear. HEART: S1, S2, regular rate. ABDOMEN: Soft. EXTREMITIES: Moves all extremities equally. LABORATORY DATA: White cell count 5.2, hemoglobin 12.7. Sodium 140, creatinine 0.78. CRP 0.69. Microbiology with 2 sets of negative blood cultures thus far. Had an MRI repeated, which showed there are prevertebral soft tissue edema with prevertebral abscess and fluid in the C1-C2 joint as well as edema and enhancement of the dense itself. Dr. Dooley has evaluated the patient and he will follow up in the outpatient setting. He will have to use a collar. ASSESSMENT AND DISCUSSION: History of IV methamphetamine use and now with Staph aureus MSSA infection of the C1-C2 area with prevertebral abscess, status post drainage. Had been on Rocephin, the pain worsens and now, I would recommend transition to IV cefazolin 2 g q.8 on date of therapy will be sometime in mid March and he will have to be admitted to a facility for treatment in view of the critical nature of the lesion and his high likelihood of compliance issues. Job ID: [id number]
[2019-02-26] MEDS: CEFAZOLIN 2 GM in Premix Bag 1 BAG IVPB SCH ×3 (03:59→19:40)
[2019-02-26] MEDS: Saccharomyces boulardii 250 MG CAP PO SCH (08:15)
[2019-02-26] MEDS: HYDROcodone/Acetaminophen 7.5/325 mg Tablet PO PRN (08:16)
--- NOTE | 2019-02-26 10:22 | PDOC.PN ---
- Subjective Encounter Start Date: 02/26/19 Encounter Start Time: 08:30 Patient seen and examined. No new complaints. No overnight events - Objective Resuscitation Status - Order Detail: 02/24/19 10:01 Resuscitation Status Routine Resuscitation Status: FULL: Full Resuscitation MAR Reviewed: Yes Vital Signs & Weight: Vital Signs (12 hours) Temp Pulse Resp BP Pulse Ox 02/26/19 07:46 98 F 105 H 16 150/92 H 95 02/26/19 04:00 98.5 F 96 16 119/60 96 02/26/19 00:00 98.4 F 102 H 16 133/91 H 96 Weight Weight 187 lb I&O: 02/25/19 02/26/19 02/27/19 06:59 06:59 06:59 Intake Total 700 480 Output Total 900 Balance 700 -420 Result Diagrams: 02/25/19 05:55 02/25/19 05:55 Radiology Reviewed by me: Yes Phys Exam - Physical Examination Constitutional: NAD HEENT: PERRLA, moist MMs, sclera anicteric Neck: no nodes, supple cervical collar+ Respiratory: no wheezing, no rales, no rhonchi Cardiovascular: RRR, no significant murmur, no rub Gastrointestinal: soft, non-tender, no distention, positive bowel sounds Musculoskeletal: no edema, pulses present Neurological: non-focal, normal sensation, moves all 4 limbs Lymphatic: no nodes Psychiatric: normal affect, A&O x 3 Skin: no rash, normal turgor Dx/Plan (1) Discitis of gmiirxzt-hfgpbpc-vrmbk region Code(s): M46.41 - DISCITIS, UNSPECIFIED, [id number] REGION Status : Acute (2) Chronic hepatitis C Code(s): B18.2 - CHRONIC VIRAL HEPATITIS C Status: Chronic (3) H/O bacteremia Code(s): Z87.898 - PERSONAL HISTORY OF OTHER SPECIFIED CONDITIONS Status: Chronic (4) H/O drug abuse Code(s): Z87.898 - PERSONAL HISTORY OF OTHER SPECIFIED CONDITIONS Status: Chronic (5) H/O retropharyngeal abscess Code(s): Z87.09 - PERSONAL HISTORY OF OTHER DISEASES OF THE RESPIRATORY SYSTEM Status: Chronic (6) Hypertension Code(s): I10 - ESSENTIAL (PRIMARY) HYPERTENSION Status: Chronic - Plan cont current plan of care, continue antibiotics, manager social * will need placement for IV antibiotics * medication reviewed as below * symptomatic treatment * clinical case manager to assist discharge placement. Review of Systems - Review of Systems ENT: negative: Ear Pain, Ear Discharge, Nose Pain, Nose Discharge, Nose Congestion, Mouth Pain, Mouth Swelling, Throat Pain, Throat Swelling, Other Respiratory: negative: Cough, Dry, Shortness of Breath, Hemoptysis, SOB with Excertion, Pleuritic Pain, Sputum, Wheezing Cardiovascular: negative: chest pain, palpitations, orthopnea, paroxysmal nocturnal dyspnea, edema, light headedness, other Gastrointestinal: negative: Nausea, Vomiting, Abdominal Pain, Diarrhea, Constipation, Melena, Hematochezia, Other Genitourinary: negative: Dysuria, Frequency, Incontinence, Hematuria, Retention , Other Musculoskeletal: negative: Neck Pain, Shoulder Pain, Arm Pain, Back Pain, Hand Pain, Leg Pain, Foot Pain, Other - Medications/Allergies Allergies/Adverse Reactions: Allergies Allergy/AdvReac Type Severity Reaction Status Date / Time morphine Allergy Verified 02/24/19 12:34 ANTIHISTAMINES Allergy Uncoded 02/10/19 18:01 Medications: Current Medications Acetaminophen (Tylenol) 650 mg PO Q4H PRN PRN Reason: Headache/Fever/Mild Pain (1-3) Last Admin: 02/25/19 10:52 Dose: 650 mg Hydrocodone Bitart/Acetaminophen ([place] 7.5/325) 1 tab PO Q4H PRN PRN Reason: Moderate Pain (4-6) Last Admin: 02/26/19 08:16 Dose: 1 tab Artificial Tears (Tears Naturale) 2 drop EA EYE PRN PRN PRN Reason: Dry Eyes Bisacodyl (Dulcolax) 10 mg PO DAILYPRN PRN PRN Reason: Constipation Calcium Carbonate (Tums) 1,000 mg PO Q4H PRN PRN Reason: Heartburn or Indigestion Fentanyl (Sublimaze) 25 mcg SLOW IVP Q2H PRN PRN Reason: Pain Guaifenesin (Robitussin Sf) 200 mg PO Q4H PRN PRN Reason: Cough Hydralazine HCl (Apresoline) 10 mg SLOW IVP Q4H PRN PRN Reason: SBP > 180 and HR < 70 Last Admin: 02/24/19 15:12 Dose: 10 mg Cefazolin Sodium/Dextrose 2 gm (/ Device) 50 mls @ 100 mls/hr IVPB 0300,1100, 1900 [facility] Last Admin: 02/26/19 03:59 Dose: 50 mls Ketorolac Tromethamine (Toradol) 15 mg IVP Q6H PRN PRN Reason: Pain Stop: 03/02/19 08:09 Last Admin: 02/25/19 21:26 Dose: 15 mg Labetalol HCl (Normodyne) 20 mg SLOW IVP Q4H PRN PRN Reason: SBP > 180 and HR >/= 70 Loperamide HCl (Imodium) 2 mg PO PRN PRN PRN Reason: Diarrhea/Loose Stools Loratadine (Claritin) 10 mg PO DAILYPRN PRN PRN Reason: Sinus Symptoms Mineral Oil/White Petrolatum (Eucerin Cream) 0 gm TOP BIDPRN PRN PRN Reason: Dry Skin Ondansetron HCl (Zofran Odt) 4 mg PO Q6H PRN PRN Reason: Nausea/Vomiting Ondansetron HCl (Zofran) 4 mg IVP Q6H PRN PRN Reason: Nausea/Vomiting Saccharomyces Boulardii (Florastor) 250 mg PO DAILY [facility] Last Admin: 02/26/19 08:15 Dose: 250 mg Senna/Docusate Sodium (Senokot S) 2 tab PO BID PRN PRN Reason: Constipation Sodium Chloride ([place] Nasal [place] 0.65%) 0 ml EA NARE QIDPRN PRN PRN Reason: Nasal Congestion Sodium Chloride (Flush - Normal Saline) 10 ml IVF Q12HR [facility] Last Admin: 02/25/19 21:16 Dose: 10 ml Sodium Chloride (Flush - Normal Saline) 10 ml IVF PRN PRN PRN Reason: Saline Flush Throat Lozenges (Cepastat Lozenges) 1 miriam PO Q2H PRN PRN Reason: Sore Throat Zolpidem Tartrate (Ambien) 5 mg PO HSPRN PRN PRN Reason: Insomnia
[2019-02-26] MEDS: Lorazepam 1 MG TAB PO PRN (12:21)
--- NOTE | 2019-02-26 13:17 | PQF ---
DATE: 02-26-19 ATTN: DR. LILIYA SANCHEZ Please exercise your independent, professional judgment in responding to the clarification form. Clinical indicators are provided on the bottom of this form for your review Please check appropriate box(s) to clarify if the following diagnosis has been ruled in or ruled out: SEPSIS [ x ] Ruled in diagnosis [ x ] Continue to treat [ ] Resolved [ ] Ruled out diagnosis [ ] Other diagnosis [ ] Unable to determine In addition, please specify: Present on Admission (POA): [ x ] Yes [ ] No [ ] Unable to determine For continuity of documentation, please document condition throughout progress notes and discharge summary. Thank You. CLINICAL INDICATORS - SIGNS / SYMPTOMS / LABS ER DX: SEPTIC ARTHRITIS OF C1-C2, ACUTE ON CHRONIC MSSA RPA, SEPSIS H&P: RETROPHARYNGEAL ABSCESS WITH EXTENSION AND WIDENING OF THE ATLANTODENTAL DISTANCE PN DR. SANCHEZ 02-26-19: ACUTE DISCITIS OF [id number] REGION, CHRONIC HEPATITIS C HR: ER: 122, 110, 105, 113 02-24-19: 112, 128, 128, 107 ER: RR: 22 RISK FACTORS: ER: HX OF RETROPHARYNGEAL ABSCESS DRAINED BY DR. ADAMS, DISCHARGED AND WAS GETTING ROCEPHIN INFUSIONS BY DR. MCMAHON, HAS MISSED 2 INFUSIONS, HX OF [place] 2012, HX MSSA IN BLOOD, HX MENINGITIS, FORMER DRUG USER OF COCAINE, FORMER SMOKER TREATMENTS: ER: CEFAZOLIN IV, VANCOMYCIN, CEFTRIAXONE IV, IVF NS (This form is maintained as a part of the permanent medical record) 2014 [employer]. All Rights Reserved [email or web address] Office: [phone] [facility]
[2019-02-27] MEDS: HYDROcodone/Acetaminophen 7.5/325 mg Tablet PO PRN ×3 (01:32→22:27)
[2019-02-27] MEDS: CEFAZOLIN 2 GM in Premix Bag 1 BAG IVPB SCH ×3 (02:47→19:37)
[2019-02-27] MEDS: Saccharomyces boulardii 250 MG CAP PO SCH (09:59)
--- NOTE | 2019-02-27 11:39 | PDOC.PN ---
- Subjective Encounter Start Date: 02/27/19 Encounter Start Time: 07:45 Patient seen and examined. No new complaints. No overnight events - Objective Resuscitation Status - Order Detail: 02/24/19 10:01 Resuscitation Status Routine Resuscitation Status: FULL: Full Resuscitation MAR Reviewed: Yes Vital Signs & Weight: Vital Signs (12 hours) Temp Pulse Resp BP Pulse Ox 02/27/19 08:00 97.6 F 106 H 16 149/102 H 94 L 02/27/19 05:14 97.9 F 77 16 120/81 95 02/27/19 01:06 98.2 F 112 H 16 133/90 96 Weight Weight 187 lb I&O: 02/26/19 02/27/19 02/28/19 06:59 06:59 06:59 Intake Total 480 720 Output Total 900 925 Balance -420 -205 Result Diagrams: 02/25/19 05:55 02/25/19 05:55 Phys Exam - Physical Examination Constitutional: NAD HEENT: PERRLA, moist MMs, sclera anicteric Neck: no JVD, supple cervical collar+ Respiratory: no wheezing, no rales, no rhonchi Cardiovascular: RRR, no significant murmur, no rub Gastrointestinal: soft, non-tender, no distention, positive bowel sounds Musculoskeletal: no edema, pulses present Neurological: non-focal, normal sensation Lymphatic: no nodes Psychiatric: normal affect Skin: no rash, normal turgor Dx/Plan (1) Discitis of xkdbvowg-npvzeim-yzemo region Code(s): M46.41 - DISCITIS, UNSPECIFIED, [id number] REGION Status : Acute (2) Chronic hepatitis C Code(s): B18.2 - CHRONIC VIRAL HEPATITIS C Status: Chronic (3) H/O bacteremia Code(s): Z87.898 - PERSONAL HISTORY OF OTHER SPECIFIED CONDITIONS Status: Chronic (4) H/O drug abuse Code(s): Z87.898 - PERSONAL HISTORY OF OTHER SPECIFIED CONDITIONS Status: Chronic (5) H/O retropharyngeal abscess Code(s): Z87.09 - PERSONAL HISTORY OF OTHER DISEASES OF THE RESPIRATORY SYSTEM Status: Chronic (6) Hypertension Code(s): I10 - ESSENTIAL (PRIMARY) HYPERTENSION Status: Chronic - Plan cont current plan of care, continue antibiotics, social work specialist * continue cefazolin * discharge planning * medication reviewed as below * symptomatic treatment. Review of Systems - Review of Systems ENT: negative: Ear Pain, Ear Discharge, Nose Pain, Nose Discharge, Nose Congestion, Mouth Pain, Mouth Swelling, Throat Pain, Throat Swelling, Other Respiratory: negative: Cough, Dry, Shortness of Breath, Hemoptysis, SOB with Excertion, Pleuritic Pain, Sputum, Wheezing Cardiovascular: negative: chest pain, palpitations, orthopnea, paroxysmal nocturnal dyspnea, edema, light headedness, other Gastrointestinal: negative: Nausea, Vomiting, Abdominal Pain, Diarrhea, Constipation, Melena, Hematochezia, Other Genitourinary: negative: Dysuria, Frequency, Incontinence, Hematuria, Retention , Other Musculoskeletal: negative: Neck Pain, Shoulder Pain, Arm Pain, Back Pain, Hand Pain, Leg Pain, Foot Pain, Other - Medications/Allergies Allergies/Adverse Reactions: Allergies Allergy/AdvReac Type Severity Reaction Status Date / Time morphine Allergy Verified 02/24/19 12:34 ANTIHISTAMINES Allergy Uncoded 02/10/19 18:01 Medications: Current Medications Acetaminophen (Tylenol) 650 mg PO Q4H PRN PRN Reason: Headache/Fever/Mild Pain (1-3) Last Admin: 02/25/19 10:52 Dose: 650 mg Hydrocodone Bitart/Acetaminophen ([place] 7.5/325) 1 tab PO Q4H PRN PRN Reason: Moderate Pain (4-6) Last Admin: 02/27/19 09:59 Dose: 1 tab Artificial Tears (Tears Naturale) 2 drop EA EYE PRN PRN PRN Reason: Dry Eyes Bisacodyl (Dulcolax) 10 mg PO DAILYPRN PRN PRN Reason: Constipation Calcium Carbonate (Tums) 1,000 mg PO Q4H PRN PRN Reason: Heartburn or Indigestion Fentanyl (Sublimaze) 25 mcg SLOW IVP Q2H PRN PRN Reason: Pain Guaifenesin (Robitussin Sf) 200 mg PO Q4H PRN PRN Reason: Cough Hydralazine HCl (Apresoline) 10 mg SLOW IVP Q4H PRN PRN Reason: SBP > 180 and HR < 70 Last Admin: 02/24/19 15:12 Dose: 10 mg Cefazolin Sodium/Dextrose 2 gm (/ Device) 50 mls @ 100 mls/hr IVPB 0300,1100, 1900 [facility] Last Admin: 02/27/19 02:47 Dose: 50 mls Ketorolac Tromethamine (Toradol) 15 mg IVP Q6H PRN PRN Reason: Pain Stop: 03/02/19 08:09 Last Admin: 02/25/19 21:26 Dose: 15 mg Labetalol HCl (Normodyne) 20 mg SLOW IVP Q4H PRN PRN Reason: SBP > 180 and HR >/= 70 Loperamide HCl (Imodium) 2 mg PO PRN PRN PRN Reason: Diarrhea/Loose Stools Loratadine (Claritin) 10 mg PO DAILYPRN PRN PRN Reason: Sinus Symptoms Lorazepam (Ativan) 1 mg PO Q6H PRN PRN Reason: Anxiety Last Admin: 02/26/19 12:21 Dose: 1 mg Mineral Oil/White Petrolatum (Eucerin Cream) 0 gm TOP BIDPRN PRN PRN Reason: Dry Skin Ondansetron HCl (Zofran Odt) 4 mg PO Q6H PRN PRN Reason: Nausea/Vomiting Ondansetron HCl (Zofran) 4 mg IVP Q6H PRN PRN Reason: Nausea/Vomiting Saccharomyces Boulardii (Florastor) 250 mg PO DAILY [facility] Last Admin: 02/27/19 09:59 Dose: 250 mg Senna/Docusate Sodium (Senokot S) 2 tab PO BID PRN PRN Reason: Constipation Sodium Chloride ([place] Nasal [place] 0.65%) 0 ml EA NARE QIDPRN PRN PRN Reason: Nasal Congestion Sodium Chloride (Flush - Normal Saline) 10 ml IVF Q12HR [facility] Last Admin: 02/27/19 10:03 Dose: 10 ml Sodium Chloride (Flush - Normal Saline) 10 ml IVF PRN PRN PRN Reason: Saline Flush Throat Lozenges (Cepastat Lozenges) 1 miriam PO Q2H PRN PRN Reason: Sore Throat Zolpidem Tartrate (Ambien) 5 mg PO HSPRN PRN PRN Reason: Insomnia
[2019-02-28] MEDS: CEFAZOLIN 2 GM in Premix Bag 1 BAG IVPB SCH ×3 (03:26→18:18)
[2019-02-28] MEDS: HYDROcodone/Acetaminophen 7.5/325 mg Tablet PO PRN (07:56)
[2019-02-28] MEDS: Saccharomyces boulardii 250 MG CAP PO SCH (07:57)
--- NOTE | 2019-02-28 08:24 | PRG ---
DATE OF SERVICE: 02/27/2019 SUBJECTIVE: Feeling better, less neck pain, less headaches. No respiratory symptoms, no abdominal pain, no diarrhea. No genitourinary symptoms. OBJECTIVE: VITAL SIGNS: Normal. HEENT: Ocular movements conjugate. Sclerae white. NECK: The patient has a neck collar in place. CARDIAC: Clear, S1, S2. Regular rate. No S3 or S4. EXTREMITIES: Moves all extremities equally. LABORATORY DATA: White cell count 5.2, hemoglobin 12.7. Chemistry is normal. ASSESSMENT AND DISCUSSION: History of IV methamphetamine use and now methicillin-resistant Staphylococcus aureus bacteremia with C1-C2 area infection from pre-vertebral abscess. In view of the odontoid process involvement, this is a critical infection, it needs to be treated for probably 8 weeks, had been on Rocephin with worsening pain, now on cefazolin. The patient is improving and will need to continue cefazolin. We would continue him until the end of March, weekly labs. Job ID: [id number]
--- NOTE | 2019-02-28 09:38 | PDOC.PN ---
- Subjective Encounter Start Date: 02/28/19 Encounter Start Time: 08:10 Patient seen and examined. No new complaints. No overnight events - Objective Resuscitation Status - Order Detail: 02/24/19 10:01 Resuscitation Status Routine Resuscitation Status: FULL: Full Resuscitation MAR Reviewed: Yes Vital Signs & Weight: Vital Signs (12 hours) Temp Pulse Resp BP Pulse Ox 02/28/19 08:00 96 02/28/19 07:07 98.1 F 105 H 18 142/92 H 96 02/28/19 03:55 97.5 F L 98 16 143/93 H 94 L 02/27/19 23:16 98.2 F 110 H 12 154/103 H 95 Weight Weight 187 lb I&O: 02/27/19 02/28/19 03/01/19 06:59 06:59 06:59 Intake Total 720 2090 Output Total 925 2950 Balance -205 -860 Result Diagrams: 02/25/19 05:55 02/25/19 05:55 Phys Exam - Physical Examination Constitutional: NAD HEENT: PERRLA, moist MMs, sclera anicteric Neck: no JVD, supple cervical colar+ Respiratory: no wheezing, no rales, no rhonchi Cardiovascular: RRR, no significant murmur, no rub Gastrointestinal: soft, non-tender, no distention, positive bowel sounds Musculoskeletal: no edema, pulses present Neurological: non-focal, normal sensation Lymphatic: no nodes Psychiatric: normal affect, A&O x 3 Skin: no rash, normal turgor Dx/Plan (1) Discitis of xvmomixg-lfrztqq-fsfor region Code(s): M46.41 - DISCITIS, UNSPECIFIED, [id number] REGION Status : Acute (2) Chronic hepatitis C Code(s): B18.2 - CHRONIC VIRAL HEPATITIS C Status: Chronic (3) H/O bacteremia Code(s): Z87.898 - PERSONAL HISTORY OF OTHER SPECIFIED CONDITIONS Status: Chronic (4) H/O drug abuse Code(s): Z87.898 - PERSONAL HISTORY OF OTHER SPECIFIED CONDITIONS Status: Chronic (5) H/O retropharyngeal abscess Code(s): Z87.09 - PERSONAL HISTORY OF OTHER DISEASES OF THE RESPIRATORY SYSTEM Status: Chronic (6) Hypertension Code(s): I10 - ESSENTIAL (PRIMARY) HYPERTENSION Status: Chronic - Plan cont current plan of care, 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 Review of Systems - Review of Systems ENT: negative: Ear Pain, Ear Discharge, Nose Pain, Nose Discharge, Nose Congestion, Mouth Pain, Mouth Swelling, Throat Pain, Throat Swelling, Other Respiratory: negative: Cough, Dry, Shortness of Breath, Hemoptysis, SOB with Excertion, Pleuritic Pain, Sputum, Wheezing Cardiovascular: negative: chest pain, palpitations, orthopnea, paroxysmal nocturnal dyspnea, edema, light headedness, other Gastrointestinal: negative: Nausea, Vomiting, Abdominal Pain, Diarrhea, Constipation, Melena, Hematochezia, Other Genitourinary: negative: Dysuria, Frequency, Incontinence, Hematuria, Retention , Other Musculoskeletal: negative: Neck Pain, Shoulder Pain, Arm Pain, Back Pain, Hand Pain, Leg Pain, Foot Pain, Other Skin: negative: Rash, Lesions, Vincenzo, Bruising, Other - Medications/Allergies Allergies/Adverse Reactions: Allergies Allergy/AdvReac Type Severity Reaction Status Date / Time morphine Allergy Verified 02/24/19 12:34 ANTIHISTAMINES Allergy Uncoded 02/10/19 18:01 Medications: Current Medications Acetaminophen (Tylenol) 650 mg PO Q4H PRN PRN Reason: Headache/Fever/Mild Pain (1-3) Last Admin: 02/25/19 10:52 Dose: 650 mg Hydrocodone Bitart/Acetaminophen ([place] 7.5/325) 1 tab PO Q4H PRN PRN Reason: Moderate Pain (4-6) Last Admin: 02/28/19 07:56 Dose: 1 tab Artificial Tears (Tears Naturale) 2 drop EA EYE PRN PRN PRN Reason: Dry Eyes Bisacodyl (Dulcolax) 10 mg PO DAILYPRN PRN PRN Reason: Constipation Calcium Carbonate (Tums) 1,000 mg PO Q4H PRN PRN Reason: Heartburn or Indigestion Fentanyl (Sublimaze) 25 mcg SLOW IVP Q2H PRN PRN Reason: Pain Last Admin: 02/28/19 00:00 Dose: 25 mcg Guaifenesin (Robitussin Sf) 200 mg PO Q4H PRN PRN Reason: Cough Hydralazine HCl (Apresoline) 10 mg SLOW IVP Q4H PRN PRN Reason: SBP > 180 and HR < 70 Last Admin: 02/24/19 15:12 Dose: 10 mg Cefazolin Sodium/Dextrose 2 gm (/ Device) 50 mls @ 100 mls/hr IVPB 0300,1100, 1900 [facility] Last Admin: 02/28/19 03:26 Dose: 50 mls Ketorolac Tromethamine (Toradol) 15 mg IVP Q6H PRN PRN Reason: Pain Stop: 03/02/19 08:09 Last Admin: 02/25/19 21:26 Dose: 15 mg Labetalol HCl (Normodyne) 20 mg SLOW IVP Q4H PRN PRN Reason: SBP > 180 and HR >/= 70 Loperamide HCl (Imodium) 2 mg PO PRN PRN PRN Reason: Diarrhea/Loose Stools Loratadine (Claritin) 10 mg PO DAILYPRN PRN PRN Reason: Sinus Symptoms Lorazepam (Ativan) 1 mg PO Q6H PRN PRN Reason: Anxiety Last Admin: 02/26/19 12:21 Dose: 1 mg Mineral Oil/White Petrolatum (Eucerin Cream) 0 gm TOP BIDPRN PRN PRN Reason: Dry Skin Ondansetron HCl (Zofran Odt) 4 mg PO Q6H PRN PRN Reason: Nausea/Vomiting Ondansetron HCl (Zofran) 4 mg IVP Q6H PRN PRN Reason: Nausea/Vomiting Saccharomyces Boulardii (Florastor) 250 mg PO DAILY [facility] Last Admin: 02/28/19 07:57 Dose: 250 mg Senna/Docusate Sodium (Senokot S) 2 tab PO BID PRN PRN Reason: Constipation Sodium Chloride ([place] Nasal [place] 0.65%) 0 ml EA NARE QIDPRN PRN PRN Reason: Nasal Congestion Sodium Chloride (Flush - Normal Saline) 10 ml IVF Q12HR [facility] Last Admin: 02/28/19 07:57 Dose: 10 ml Sodium Chloride (Flush - Normal Saline) 10 ml IVF PRN PRN PRN Reason: Saline Flush Throat Lozenges (Cepastat Lozenges) 1 miriam PO Q2H PRN PRN Reason: Sore Throat Zolpidem Tartrate (Ambien) 5 mg PO HSPRN PRN PRN Reason: Insomnia
[2019-02-28] MEDS ORDERED: Sterile Water 10 ML VIAL IVP SCH (13:37)
[2019-02-28] MEDS ORDERED: Activase 2 MG VIAL CATH SCH (13:37)
[2019-03-01] MEDS: CEFAZOLIN 2 GM in Premix Bag 1 BAG IVPB SCH ×3 (03:19→18:21)
[2019-03-01] MEDS: Saccharomyces boulardii 250 MG CAP PO SCH (09:02)
--- NOTE | 2019-03-01 10:10 | PDOC.PN ---
- Subjective Encounter Start Date: 03/01/19 Encounter Start Time: 09:00 Patient seen and examined. No new complaints. No overnight events - Objective Resuscitation Status - Order Detail: 02/24/19 10:01 Resuscitation Status Routine Resuscitation Status: FULL: Full Resuscitation MAR Reviewed: Yes Vital Signs & Weight: Vital Signs (12 hours) Temp Pulse Resp BP Pulse Ox 03/01/19 07:36 98.0 F 112 H 16 151/94 H 98 03/01/19 03:36 98.2 F 108 H 16 165/90 H 95 03/01/19 00:14 98.3 F 110 H 20 142/105 H 93 L Weight Weight 187 lb I&O: 02/28/19 03/01/19 03/02/19 06:59 06:59 06:59 Intake Total 0 1960 Output Total 2950 1750 Balance -860 210 Result Diagrams: 02/25/19 05:55 02/25/19 05:55 Phys Exam - Physical Examination Constitutional: NAD HEENT: PERRLA, moist MMs, sclera anicteric Neck: no JVD, supple cervical collar+ Respiratory: no wheezing, no rales, no rhonchi Cardiovascular: RRR, no significant murmur, no rub Gastrointestinal: soft, non-tender, no distention, positive bowel sounds Musculoskeletal: no edema, pulses present Neurological: non-focal, normal sensation, moves all 4 limbs Lymphatic: no nodes Psychiatric: normal affect, A&O x 3 Skin: no rash, normal turgor Dx/Plan (1) Discitis of nuxfmlop-onzosvv-johem region Code(s): M46.41 - DISCITIS, UNSPECIFIED, [id number] REGION Status : Acute (2) Chronic hepatitis C Code(s): B18.2 - CHRONIC VIRAL HEPATITIS C Status: Chronic (3) H/O bacteremia Code(s): Z87.898 - PERSONAL HISTORY OF OTHER SPECIFIED CONDITIONS Status: Chronic (4) H/O drug abuse Code(s): Z87.898 - PERSONAL HISTORY OF OTHER SPECIFIED CONDITIONS Status: Chronic (5) H/O retropharyngeal abscess Code(s): Z87.09 - PERSONAL HISTORY OF OTHER DISEASES OF THE RESPIRATORY SYSTEM Status: Chronic (6) Hypertension Code(s): I10 - ESSENTIAL (PRIMARY) HYPERTENSION Status: Chronic - Plan cont current plan of care, 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 Review of Systems - Review of Systems ENT: negative: Ear Pain, Ear Discharge, Nose Pain, Nose Discharge, Nose Congestion, Mouth Pain, Mouth Swelling, Throat Pain, Throat Swelling, Other Respiratory: negative: Cough, Dry, Shortness of Breath, Hemoptysis, SOB with Excertion, Pleuritic Pain, Sputum, Wheezing Cardiovascular: negative: chest pain, palpitations, orthopnea, paroxysmal nocturnal dyspnea, edema, light headedness, other Gastrointestinal: negative: Nausea, Vomiting, Abdominal Pain, Diarrhea, Constipation, Melena, Hematochezia, Other Genitourinary: negative: Dysuria, Frequency, Incontinence, Hematuria, Retention , Other Musculoskeletal: negative: Neck Pain, Shoulder Pain, Arm Pain, Back Pain, Hand Pain, Leg Pain, Foot Pain, Other - Medications/Allergies Allergies/Adverse Reactions: Allergies Allergy/AdvReac Type Severity Reaction Status Date / Time morphine Allergy Verified 02/24/19 12:34 ANTIHISTAMINES Allergy Uncoded 02/10/19 18:01 Medications: Current Medications Acetaminophen (Tylenol) 650 mg PO Q4H PRN PRN Reason: Headache/Fever/Mild Pain (1-3) Last Admin: 02/25/19 10:52 Dose: 650 mg Hydrocodone Bitart/Acetaminophen ([place] 7.5/325) 1 tab PO Q4H PRN PRN Reason: Moderate Pain (4-6) Last Admin: 02/28/19 07:56 Dose: 1 tab Artificial Tears (Tears Naturale) 2 drop EA EYE PRN PRN PRN Reason: Dry Eyes Bisacodyl (Dulcolax) 10 mg PO DAILYPRN PRN PRN Reason: Constipation Calcium Carbonate (Tums) 1,000 mg PO Q4H PRN PRN Reason: Heartburn or Indigestion Fentanyl (Sublimaze) 25 mcg SLOW IVP Q2H PRN PRN Reason: Pain Last Admin: 02/28/19 00:00 Dose: 25 mcg Guaifenesin (Robitussin Sf) 200 mg PO Q4H PRN PRN Reason: Cough Hydralazine HCl (Apresoline) 10 mg SLOW IVP Q4H PRN PRN Reason: SBP > 180 and HR < 70 Last Admin: 02/24/19 15:12 Dose: 10 mg Cefazolin Sodium/Dextrose 2 gm (/ Device) 50 mls @ 100 mls/hr IVPB 0300,1100, 1900 [facility] Last Admin: 03/01/19 03:19 Dose: 50 mls Ketorolac Tromethamine (Toradol) 15 mg IVP Q6H PRN PRN Reason: Pain Stop: 03/02/19 08:09 Last Admin: 02/25/19 21:26 Dose: 15 mg Labetalol HCl (Normodyne) 20 mg SLOW IVP Q4H PRN PRN Reason: SBP > 180 and HR >/= 70 Loperamide HCl (Imodium) 2 mg PO PRN PRN PRN Reason: Diarrhea/Loose Stools Loratadine (Claritin) 10 mg PO DAILYPRN PRN PRN Reason: Sinus Symptoms Lorazepam (Ativan) 1 mg PO Q6H PRN PRN Reason: Anxiety Last Admin: 02/26/19 12:21 Dose: 1 mg Mineral Oil/White Petrolatum (Eucerin Cream) 0 gm TOP BIDPRN PRN PRN Reason: Dry Skin Ondansetron HCl (Zofran Odt) 4 mg PO Q6H PRN PRN Reason: Nausea/Vomiting Ondansetron HCl (Zofran) 4 mg IVP Q6H PRN PRN Reason: Nausea/Vomiting Saccharomyces Boulardii (Florastor) 250 mg PO DAILY [facility] Last Admin: 03/01/19 09:02 Dose: 250 mg Senna/Docusate Sodium (Senokot S) 2 tab PO BID PRN PRN Reason: Constipation Sodium Chloride ([place] Nasal [place] 0.65%) 0 ml EA NARE QIDPRN PRN PRN Reason: Nasal Congestion Sodium Chloride (Flush - Normal Saline) 10 ml IVF Q12HR [facility] Last Admin: 03/01/19 09:02 Dose: 10 ml Sodium Chloride (Flush - Normal Saline) 10 ml IVF PRN PRN PRN Reason: Saline Flush Sodium Chloride (Flush - Normal Saline) 10 ml IVF PRN PRN PRN Reason: Saline Flush Throat Lozenges (Cepastat Lozenges) 1 miriam PO Q2H PRN PRN Reason: Sore Throat Zolpidem Tartrate (Ambien) 5 mg PO HSPRN PRN PRN Reason: Insomnia
[2019-03-02] MEDS: CEFAZOLIN 2 GM in Premix Bag 1 BAG IVPB SCH ×3 (02:06→18:55)
[2019-03-02] MEDS: Saccharomyces boulardii 250 MG CAP PO SCH (08:35)
--- NOTE | 2019-03-02 13:06 | PDOC.PN ---
- Subjective Encounter Start Date: 03/02/19 Encounter Start Time: 13:04 Patient seen and examined, no new issues or complaints, family at bedside, no new issues, all questions answered. - Objective Resuscitation Status - Order Detail: 02/24/19 10:01 Resuscitation Status Routine Resuscitation Status: FULL: Full Resuscitation Vital Signs & Weight: Vital Signs (12 hours) Temp Pulse Resp BP BP Pulse Ox 03/02/19 11:11 97.9 F 134 H 16 154/92 H 96 03/02/19 07:33 98.1 F 134 H 16 138/88 98 03/02/19 04:00 98 F 119 H 16 139/91 H 100 03/02/19 01:40 97.8 F 137 H 20 149/99 H 97 Weight Weight 187 lb I&O: 03/01/19 03/02/19 03/03/19 06:59 06:59 06:59 Intake Total 1960 1140 350 Output Total 1750 Balance 210 1140 350 Result Diagrams: 02/25/19 05:55 02/25/19 05:55 Phys Exam - Physical Examination Constitutional: NAD HEENT: PERRLA, moist MMs, sclera anicteric Neck: no nodes, no JVD, supple Respiratory: no wheezing, no rales, no rhonchi Cardiovascular: RRR, no significant murmur, no rub Gastrointestinal: soft, non-tender, no distention, positive bowel sounds Dx/Plan (1) Discitis of qwgtadll-bzjwdpe-lfkzz region Code(s): M46.41 - DISCITIS, UNSPECIFIED, [id number] REGION Status : Acute (2) Chronic hepatitis C Code(s): B18.2 - CHRONIC VIRAL HEPATITIS C Status: Chronic (3) H/O bacteremia Code(s): Z87.898 - PERSONAL HISTORY OF OTHER SPECIFIED CONDITIONS Status: Chronic (4) H/O drug abuse Code(s): Z87.898 - PERSONAL HISTORY OF OTHER SPECIFIED CONDITIONS Status: Chronic (5) H/O retropharyngeal abscess Code(s): Z87.09 - PERSONAL HISTORY OF OTHER DISEASES OF THE RESPIRATORY SYSTEM Status: Chronic (6) Hypertension Code(s): I10 - ESSENTIAL (PRIMARY) HYPERTENSION Status: Chronic - Plan * cont abx * pending arragnements * will require 8 weeks of IV cefazoline * ID and sx teams following
[2019-03-03] MEDS: CEFAZOLIN 2 GM in Premix Bag 1 BAG IVPB SCH ×3 (03:13→19:23)
[2019-03-03] MEDS: Saccharomyces boulardii 250 MG CAP PO SCH (08:23)
--- NOTE | 2019-03-03 09:13 | PDOC.PN ---
- Subjective Encounter Start Date: 03/03/19 Encounter Start Time: 09:12 Patient seen and examined, no new issues. All questions answered. - Objective Resuscitation Status - Order Detail: 02/24/19 10:01 Resuscitation Status Routine Resuscitation Status: FULL: Full Resuscitation Vital Signs & Weight: Vital Signs (12 hours) Temp Pulse Resp BP Pulse Ox 03/03/19 07:39 97.6 F 117 H 20 152/89 H 100 03/03/19 05:19 97.7 F 100 18 145/95 H 100 03/03/19 01:05 98.1 F 124 H 18 130/85 96 Weight Weight 187 lb I&O: 03/02/19 03/03/19 03/04/19 06:59 06:59 06:59 Intake Total 1140 1190 Balance 1140 1190 Result Diagrams: 02/25/19 05:55 02/25/19 05:55 Phys Exam - Physical Examination Constitutional: NAD HEENT: PERRLA, moist MMs, sclera anicteric Neck: no nodes, no JVD, supple Respiratory: no wheezing, no rales, no rhonchi Cardiovascular: RRR, no significant murmur, no rub Gastrointestinal: soft, non-tender, no distention, positive bowel sounds Musculoskeletal: pulses present, edema present (trace) Dx/Plan (1) Discitis of ffgdmdwn-chogtli-xkysc region Code(s): M46.41 - DISCITIS, UNSPECIFIED, [id number] REGION Status : Acute (2) Chronic hepatitis C Code(s): B18.2 - CHRONIC VIRAL HEPATITIS C Status: Chronic (3) H/O bacteremia Code(s): Z87.898 - PERSONAL HISTORY OF OTHER SPECIFIED CONDITIONS Status: Chronic (4) H/O drug abuse Code(s): Z87.898 - PERSONAL HISTORY OF OTHER SPECIFIED CONDITIONS Status: Chronic (5) H/O retropharyngeal abscess Code(s): Z87.09 - PERSONAL HISTORY OF OTHER DISEASES OF THE RESPIRATORY SYSTEM Status: Chronic (6) Hypertension Code(s): I10 - ESSENTIAL (PRIMARY) HYPERTENSION Status: Chronic - Plan * Pending arrangements for IV abx * no changes in plan of care for now * subspecialists following * labs in AM
[2019-03-03] MEDS: Acetaminophen 325 MG TAB PO PRN (21:25)
[2019-03-04] MEDS: CEFAZOLIN 2 GM in Premix Bag 1 BAG IVPB SCH ×3 (02:02→18:09)
[2019-03-04 04:10] LABS: #Basophils 0.1 thou/uL (0.0-0.2); #Eosinphils 0.2 thou/uL (0.0-0.7); #Lymphocytes 2.4 thou/uL (1.20-3.40); #Monocytes 0.7 thou/uL (0.11-0.59); #Neutrophils 3.7 thou/uL (1.40-6.50); %Basophils 0.9 % (0.0-1.0); %Lymphocytes 33.9 % (21.0-51.0); %Monocytes 10.5 % (0.0-10.0); %Neutrophils 51.7 % (42.0-75.0); Hemoglobin 13.3 g/dL (14.0-18.0); Mean Corpuscular HGB CONC 33.3 g/dL (32.0-36.0); Mean Corpuscular Hemoglobin 31.8 pg (27.0-31.0); Mean Corpuscular Volume 95.6 fL (78.0-98.0); Mean Platelet Volume 6.6 fL (7.4-10.4); Platelet Count 459 thou/uL (130-400); RBC Distribution Width 12.7 % (11.5-14.5); Red Blood Cell (RBC) Count 4.17 mill/uL (4.70-6.10); White Blood Cell (WBC) Count 7.1 thou/uL (4.8-10.8)
[2019-03-04 04:16] LABS: Anion Gap 14 mmol/L (10-20); BUN (Urea Nitrogen) 15 mg/dL (8.9-20.6); Calc. Creatinine Clearance 118 mL/min (70-130); Carbon Dioxide 25 mmol/L (22-29); Chloride 104 mmol/L (98-107); Estimated GFR-MDRD 87; Glucose 96 mg/dL (70-105); Potassium 3.7 mmol/L (3.5-5.1); Sodium 139 mmol/L (136-145)
--- NOTE | 2019-03-04 07:57 | PDOC.PN ---
- Subjective Encounter Start Date: 03/04/19 Encounter Start Time: 11:00 Subjective: Patient reports 48 hours of significant muscle tension and spasm in his -: neck. No fevers. Eating well but no BM for 4 days. Persistent tachycardia -: especially since left the hospital over the weekend. - Objective Resuscitation Status - Order Detail: 02/24/19 10:01 Resuscitation Status Routine Resuscitation Status: FULL: Full Resuscitation MAR Reviewed: Yes Vital Signs & Weight: Vital Signs (12 hours) Temp Pulse Resp BP Pulse Ox 03/04/19 03:46 97.9 F 120 H 18 133/91 H 99 03/04/19 00:16 97.7 F 135 H 20 136/93 H 94 L 03/03/19 21:01 97.8 F 131 H 20 136/95 H 98 Weight Weight 187 lb I&O: 03/03/19 03/04/19 03/05/19 06:59 06:59 06:59 Intake Total 1190 Balance 1190 Result Diagrams: 03/04/19 03:40 03/04/19 03:40 EKG Reviewed by me: Yes (Sinus tachy cardia 110s, no ST changes, mild LVH) Phys Exam - Physical Examination Constitutional: NAD HEENT: moist MMs Collar in place Respiratory: no wheezing, no rales, no rhonchi Cardiovascular: RRR, no significant murmur Gastrointestinal: soft, non-tender, positive bowel sounds mild distension Neurological: non-focal, moves all 4 limbs Psychiatric: normal affect, A&O x 3 Dx/Plan (1) Discitis of eamatbvt-wgdjeln-ftjnx region Code(s): M46.41 - DISCITIS, UNSPECIFIED, [id number] REGION Status : Acute (2) Chronic hepatitis C Code(s): B18.2 - CHRONIC VIRAL HEPATITIS C Status: Chronic (3) H/O bacteremia Code(s): Z87.898 - PERSONAL HISTORY OF OTHER SPECIFIED CONDITIONS Status: Chronic (4) H/O drug abuse Code(s): Z87.898 - PERSONAL HISTORY OF OTHER SPECIFIED CONDITIONS Status: Chronic (5) H/O retropharyngeal abscess Code(s): Z87.09 - PERSONAL HISTORY OF OTHER DISEASES OF THE RESPIRATORY SYSTEM Status: Chronic (6) Hypertension Code(s): I10 - ESSENTIAL (PRIMARY) HYPERTENSION Status: Chronic (7) Tachycardia Code(s): R00.0 - TACHYCARDIA, UNSPECIFIED Status: Acute Comment: tachycardia worsening, patient off the unit most of the time over the weekend, suspicious of leaving to continue drug abuse, infection may also be the source of the tachycardia. EKG with simple sinus tachycardia. - Plan cont current plan of care, continue antibiotics, medical social worker trying to arrange placement for IV abx, complicated by patient non- -: compliance, not staying in the hospital, possibly continuing drug use * . - Discharge Day Encounter end time: 11:10
[2019-03-04] MEDS: Saccharomyces boulardii 250 MG CAP PO SCH (09:18)
[2019-03-04] MEDS ORDERED: Senokot 8.6 MG TAB PO PRN (11:31)
[2019-03-04] MEDS ORDERED: Senokot 8.6 MG TAB PO SCH (12:00)
[2019-03-04] MEDS: Docusate 100 MG CAP PO SCH (20:04)
[2019-03-04] MEDS: Lorazepam 1 MG TAB PO PRN (20:04)
[2019-03-04] MEDS: HYDROcodone/Acetaminophen 7.5/325 mg Tablet PO PRN (20:04)
[2019-03-05] MEDS: CEFAZOLIN 2 GM in Premix Bag 1 BAG IVPB SCH ×3 (02:59→19:04)
[2019-03-05] MEDS: HYDROcodone/Acetaminophen 7.5/325 mg Tablet PO PRN ×3 (03:05→20:05)
[2019-03-05] MEDS: Docusate 100 MG CAP PO SCH ×2 (08:15→20:03)
[2019-03-05] MEDS: Saccharomyces boulardii 250 MG CAP PO SCH (08:15)
--- NOTE | 2019-03-05 11:52 | PDOC.PN ---
- Subjective Encounter Start Date: 03/05/19 Encounter Start Time: 11:54 Subjective: Pt is seen and examined , No new complain - Objective Resuscitation Status - Order Detail: 02/24/19 10:01 Resuscitation Status Routine Resuscitation Status: FULL: Full Resuscitation MAR Reviewed: Yes Vital Signs & Weight: Vital Signs (12 hours) Temp Pulse Resp BP BP Pulse Ox 03/05/19 08:16 96 03/05/19 08:00 97.7 F 103 H 20 121/80 96 03/05/19 04:57 97.5 F L 99 18 149/92 H 96 Weight Weight 187 lb I&O: 03/04/19 03/05/19 03/06/19 06:59 06:59 06:59 Intake Total 1710 Balance 1710 Result Diagrams: 03/04/19 03:40 03/04/19 03:40 Phys Exam - Physical Examination HEENT: PERRLA, moist MMs Neck: no nodes, no JVD, supple Respiratory: no wheezing, no rales, no rhonchi Cardiovascular: RRR, no significant murmur, no rub Gastrointestinal: soft, non-tender Musculoskeletal: no edema, pulses present Neurological: non-focal, normal sensation Dx/Plan (1) Discitis of qjbwbihl-okjwbyx-mywjc region Code(s): M46.41 - DISCITIS, UNSPECIFIED, [id number] REGION Status : Acute (2) Chronic hepatitis C Code(s): B18.2 - CHRONIC VIRAL HEPATITIS C Status: Chronic (3) H/O bacteremia Code(s): Z87.898 - PERSONAL HISTORY OF OTHER SPECIFIED CONDITIONS Status: Chronic (4) H/O drug abuse Code(s): Z87.898 - PERSONAL HISTORY OF OTHER SPECIFIED CONDITIONS Status: Chronic (5) H/O retropharyngeal abscess Code(s): Z87.09 - PERSONAL HISTORY OF OTHER DISEASES OF THE RESPIRATORY SYSTEM Status: Chronic (6) Hypertension Code(s): I10 - ESSENTIAL (PRIMARY) HYPERTENSION Status: Chronic - Plan cont current plan of care, continue antibiotics awaiting Placement for IV antibiotics * . Review of Systems - Review of Systems Eyes: Pain. negative: Vision Change, Conjunctivae Inflammation, Eyelid Inflammation, Redness, Other ENT: negative: Ear Pain, Ear Discharge, Nose Pain, Nose Discharge, Nose Congestion, Mouth Pain, Mouth Swelling, Throat Pain, Throat Swelling, Other Respiratory: negative: Cough, Dry, Shortness of Breath, Hemoptysis, SOB with Excertion, Pleuritic Pain, Sputum, Wheezing Cardiovascular: negative: chest pain, palpitations, orthopnea, paroxysmal nocturnal dyspnea, edema, light headedness, other Gastrointestinal: negative: Nausea, Vomiting, Abdominal Pain, Diarrhea, Constipation, Melena, Hematochezia, Other Genitourinary: negative: Dysuria, Frequency, Incontinence, Hematuria, Retention , Other Musculoskeletal: negative: Neck Pain, Shoulder Pain, Arm Pain, Back Pain, Hand Pain, Leg Pain, Foot Pain, Other Skin: negative: Rash, Lesions, Vincenzo, Bruising, Other - Medications/Allergies Allergies/Adverse Reactions: Allergies Allergy/AdvReac Type Severity Reaction Status Date / Time morphine Allergy Verified 02/24/19 12:34 ANTIHISTAMINES Allergy Uncoded 02/10/19 18:01 Medications: Current Medications Acetaminophen (Tylenol) 650 mg PO Q4H PRN PRN Reason: Headache/Fever/Mild Pain (1-3) Last Admin: 03/03/19 21:25 Dose: 650 mg Hydrocodone Bitart/Acetaminophen ([place] 7.5/325) 1 tab PO Q4H PRN PRN Reason: Moderate Pain (4-6) Last Admin: 03/05/19 08:16 Dose: 1 tab Artificial Tears (Tears Naturale) 2 drop EA EYE PRN PRN PRN Reason: Dry Eyes Bisacodyl (Dulcolax) 10 mg PO DAILYPRN PRN PRN Reason: Constipation Calcium Carbonate (Tums) 1,000 mg PO Q4H PRN PRN Reason: Heartburn or Indigestion Chlorzoxazone (Parafon Dsc) 500 mg PO TID PRN PRN Reason: Muscle Spasm Last Admin: 03/04/19 12:50 Dose: 500 mg Docusate Sodium (Colace) 100 mg PO BID MARCELINO Last Admin: 03/05/19 08:15 Dose: 100 mg Fentanyl (Sublimaze) 25 mcg SLOW IVP Q2H PRN PRN Reason: Pain Last Admin: 02/28/19 00:00 Dose: 25 mcg Guaifenesin (Robitussin Sf) 200 mg PO Q4H PRN PRN Reason: Cough Hydralazine HCl (Apresoline) 10 mg SLOW IVP Q4H PRN PRN Reason: SBP > 180 and HR < 70 Last Admin: 02/24/19 15:12 Dose: 10 mg Cefazolin Sodium/Dextrose 2 gm (/ Device) 50 mls @ 100 mls/hr IVPB 0300,1100, 1900 [facility] Last Admin: 03/05/19 10:43 Dose: 50 mls Labetalol HCl (Normodyne) 20 mg SLOW IVP Q4H PRN PRN Reason: SBP > 180 and HR >/= 70 Loperamide HCl (Imodium) 2 mg PO PRN PRN PRN Reason: Diarrhea/Loose Stools Loratadine (Claritin) 10 mg PO DAILYPRN PRN PRN Reason: Sinus Symptoms Lorazepam (Ativan) 1 mg PO Q6H PRN PRN Reason: Anxiety Last Admin: 03/04/19 20:04 Dose: 1 mg Mineral Oil/White Petrolatum (Eucerin Cream) 0 gm TOP BIDPRN PRN PRN Reason: Dry Skin Ondansetron HCl (Zofran Odt) 4 mg PO Q6H PRN PRN Reason: Nausea/Vomiting Ondansetron HCl (Zofran) 4 mg IVP Q6H PRN PRN Reason: Nausea/Vomiting Saccharomyces Boulardii (Florastor) 250 mg PO DAILY [facility] Last Admin: 03/05/19 08:15 Dose: 250 mg Senna (Senokot) 2 tab PO HSPRN PRN PRN Reason: Constipation Senna/Docusate Sodium (Senokot S) 2 tab PO BID PRN PRN Reason: Constipation Last Admin: 03/01/19 20:55 Dose: 2 tab Sodium Chloride ([place] Nasal [place] 0.65%) 0 ml EA NARE QIDPRN PRN PRN Reason: Nasal Congestion Sodium Chloride (Flush - Normal Saline) 10 ml IVF Q12HR [facility] Last Admin: 03/05/19 10:47 Dose: 10 ml Sodium Chloride (Flush - Normal Saline) 10 ml IVF PRN PRN PRN Reason: Saline Flush Sodium Chloride (Flush - Normal Saline) 10 ml IVF PRN PRN PRN Reason: Saline Flush Throat Lozenges (Cepastat Lozenges) 1 miriam PO Q2H PRN PRN Reason: Sore Throat Zolpidem Tartrate (Ambien) 5 mg PO HSPRN PRN PRN Reason: Insomnia
[2019-03-05] MEDS: Lorazepam 1 MG TAB PO PRN (20:06)
--- NOTE | 2019-03-05 22:52 | EKG ---
Test Reason : Blood Pressure : / mmHG Vent. Rate : 118 BPM Atrial Rate : 118 BPM P-R Int : 156 ms QRS Dur : 110 ms QT Int : 342 ms P-R-T Axes : 044 001 019 degrees QTc Int : 479 ms Sinus tachycardia Minimal voltage criteria for LVH, may be normal variant Borderline ECG Confirmed by MONTSERRAT YAP ([id number]) on 03/05/2019 10:51:51 PM Referred By: CLARI Confirmed By:MONTSERRAT YAP
[2019-03-06] MEDS: CEFAZOLIN 2 GM in Premix Bag 1 BAG IVPB SCH ×3 (03:28→18:39)
[2019-03-06] MEDS: HYDROcodone/Acetaminophen 7.5/325 mg Tablet PO PRN ×3 (08:12→21:19)
[2019-03-06] MEDS: Docusate 100 MG CAP PO SCH ×3 (08:13→21:21)
[2019-03-06] MEDS: Saccharomyces boulardii 250 MG CAP PO SCH (08:13)
[2019-03-06] MEDS ORDERED: Bisacodyl 10 MG SUPP PR SCH (15:30)
[2019-03-06] MEDS ORDERED: Polyethylene Glycol 3350 17 GM Packet PO PRN (15:35)
[2019-03-06] MEDS ORDERED: Senokot 8.6 MG TAB PO SCH (15:45)
--- NOTE | 2019-03-06 16:13 | PRG ---
DATE OF SERVICE: 03/06/2019 SUBJECTIVE: The patient is doing okay and complains of significant constipation. No bowel movement for about 4 days. Feels a little unstable at the C-spine. Otherwise, boredom is biggest problem. OBJECTIVE: VITAL SIGNS: Temperature 98.1 pulse 101, respirations 18, O2 saturation 94% on room air, BP 130/86. GENERAL APPEARANCE: Age-appropriate male, in no distress. NECK: He has a C-collar in place. HEART: Regular rate and rhythm. Borderline tachycardic. No murmurs, gallops, or rubs. LUNGS: Clear to auscultation bilaterally. ABDOMEN: Soft, nontender, and nondistended. EXTREMITIES: No cyanosis, clubbing, or edema. NEUROLOGICAL: He appears to be fully intact. He has no gross focal deficits. PSYCH: Normal affect and behavior. IMPRESSION AND PLAN: 1. 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 2. Retropharyngeal abscess status post drainage. 3. Chronic hepatitis C. 4. Hypertension. 5. Tachycardia. 6. Drug abuse with methamphetamine. 7. Constipation. The patient is on appropriate antibiotics with cefazolin t.i.d. per ID. We will need this till the end of March, hoping to get some alternative site of care other than inpatient admission. The patient has actually left the hospital at times, unclear how compliant he is being at this point. We will have Case Management continue to work on disposition as the plan appears to be pretty well set in place. He will need to stay in the C-collar as well. We will go ahead and add Dulcolax suppository, increase his Senokot from p.r.n. to scheduled and add a p.r.n. MiraLAX, as appears to be secondary to opioid pain medications. Job ID: [id number] [facility]
[2019-03-07] MEDS: CEFAZOLIN 2 GM in Premix Bag 1 BAG IVPB SCH ×3 (03:31→18:11)
[2019-03-07] MEDS: HYDROcodone/Acetaminophen 7.5/325 mg Tablet PO PRN ×3 (03:31→19:59)
[2019-03-07] MEDS: Lorazepam 1 MG TAB PO PRN ×2 (03:35→19:59)
[2019-03-07] MEDS: Docusate 100 MG CAP PO SCH ×2 (08:09→19:59)
[2019-03-07] MEDS: Saccharomyces boulardii 250 MG CAP PO SCH (08:09)
--- NOTE | 2019-03-07 16:14 | PDOC.PN ---
- Subjective Encounter Start Date: 03/07/19 Encounter Start Time: 16:11 Subjective: No new problem. -: Denied focal weakness or numbness. - Objective Resuscitation Status - Order Detail: 02/24/19 10:01 Resuscitation Status Routine Resuscitation Status: FULL: Full Resuscitation Vital Signs & Weight: Vital Signs (12 hours) Temp Pulse Resp BP BP BP Pulse Ox 03/07/19 15:22 97.8 F 125 H 18 155/95 H 98 03/07/19 12:45 97.8 F 100 16 133/92 H 95 03/07/19 08:00 97.6 F 90 10 L 154/92 H 96 03/07/19 04:18 97.6 F 95 20 135/91 H 96 Weight Admit Weight 187 lb Weight 187 lb I&O: 03/06/19 03/07/19 03/08/19 06:59 06:59 06:59 Intake Total 2390 2570 Output Total 2125 Balance 265 2570 Result Diagrams: 03/04/19 03:40 03/04/19 03:40 Phys Exam - Physical Examination Constitutional: NAD HEENT: PERRLA, moist MMs cervical collar in place Respiratory: no wheezing, no rhonchi, wheezing present regular but tachycardic. Gastrointestinal: soft, non-tender, no distention, positive bowel sounds Musculoskeletal: no edema, pulses present Neurological: non-focal, moves all 4 limbs Psychiatric: A&O x 3 Dx/Plan (1) Discitis of jsezmpsa-rpnqqzg-bdiir region Code(s): M46.41 - DISCITIS, UNSPECIFIED, [id number] REGION Status : Acute (2) Retropharyngeal abscess Code(s): J39.0 - RETROPHARYNGEAL AND PARAPHARYNGEAL ABSCESS Status: Acute (3) MSSA bacteremia Code(s): R78.81 - BACTEREMIA Status: Acute (4) Tachycardia Code(s): R00.0 - TACHYCARDIA, UNSPECIFIED Status: Acute Comment: tachycardia worsening, patient off the unit most of the time over the weekend, suspicious of leaving to continue drug abuse, infection may also be the source of the tachycardia. EKG with simple sinus tachycardia. (5) Chronic hepatitis C Code(s): B18.2 - CHRONIC VIRAL HEPATITIS C Status: Chronic (6) H/O bacteremia Code(s): Z87.898 - PERSONAL HISTORY OF OTHER SPECIFIED CONDITIONS Status: Chronic (7) H/O drug abuse Code(s): Z87.898 - PERSONAL HISTORY OF OTHER SPECIFIED CONDITIONS Status: Chronic (8) Hypertension Code(s): I10 - ESSENTIAL (PRIMARY) HYPERTENSION Status: Chronic - Plan Continue IV antibiotics, -: Get repeat CBC and BMP + mag, -: Will start beta justine for HTN and tachycardia * .
[2019-03-07] MEDS: Metoprolol Tartrate 25 MG TAB PO SCH (19:59)
[2019-03-08] MEDS: CEFAZOLIN 2 GM in Premix Bag 1 BAG IVPB SCH ×3 (03:35→17:57)
[2019-03-08 03:55] LABS: #Basophils 0.1 thou/uL (0.0-0.2); #Eosinphils 0.3 thou/uL (0.0-0.7); #Lymphocytes 2.8 thou/uL (1.20-3.40); #Monocytes 0.7 thou/uL (0.11-0.59); #Neutrophils 3.4 thou/uL (1.40-6.50); %Basophils 0.8 % (0.0-1.0); %Eosinophils 3.8 % (0.0-10.0); %Lymphocytes 38.7 % (21.0-51.0); %Monocytes 9.1 % (0.0-10.0); %Neutrophils 47.6 % (42.0-75.0); Hemoglobin 13.6 g/dL (14.0-18.0); Mean Corpuscular HGB CONC 33.6 g/dL (32.0-36.0); Mean Corpuscular Hemoglobin 31.8 pg (27.0-31.0); Mean Corpuscular Volume 94.7 fL (78.0-98.0); Mean Platelet Volume 6.8 fL (7.4-10.4); Platelet Count 429 thou/uL (130-400); RBC Distribution Width 12.4 % (11.5-14.5); Red Blood Cell (RBC) Count 4.28 mill/uL (4.70-6.10); White Blood Cell (WBC) Count 7.1 thou/uL (4.8-10.8)
[2019-03-08 04:27] LABS: Anion Gap 13 mmol/L (10-20); BUN (Urea Nitrogen) 12 mg/dL (8.9-20.6); Calc. Creatinine Clearance 146 mL/min (70-130); Calcium 9.5 mg/dL (7.8-10.44); Carbon Dioxide 27 mmol/L (22-29); Chloride 105 mmol/L (98-107); Estimated GFR-MDRD Greater than 90; Glucose 96 mg/dL (70-105); Magnesium 2.3 mg/dL (1.6-2.6); Potassium 4.2 mmol/L (3.5-5.1); Sodium 141 mmol/L (136-145)
[2019-03-08] MEDS: HYDROcodone/Acetaminophen 7.5/325 mg Tablet PO PRN ×2 (07:21→20:55)
[2019-03-08] MEDS: Lorazepam 1 MG TAB PO PRN (07:21)
[2019-03-08] MEDS: Metoprolol Tartrate 25 MG TAB PO SCH ×2 (09:39→20:55)
[2019-03-08] MEDS: Saccharomyces boulardii 250 MG CAP PO SCH (09:39)
[2019-03-08] MEDS: Docusate 100 MG CAP PO SCH ×2 (09:39→20:54)
--- NOTE | 2019-03-08 15:07 | PDOC.PN ---
- Subjective Encounter Start Date: 03/08/19 Encounter Start Time: 13:05 Subjective: no new problem. -: Still complaining of decrease heck movement. - Objective Resuscitation Status - Order Detail: 02/24/19 10:01 Resuscitation Status Routine Resuscitation Status: FULL: Full Resuscitation Vital Signs & Weight: Vital Signs (12 hours) Temp Pulse Resp BP BP Pulse Ox 03/08/19 12:00 93 L 03/08/19 11:08 97.6 F 94 18 114/75 93 L 03/08/19 08:00 94 L 03/08/19 07:56 97.9 F 87 18 124/81 94 L 03/08/19 04:37 97.7 F 93 20 124/81 94 L Weight Admit Weight 187 lb Weight 187 lb I&O: 03/07/19 03/08/19 03/09/19 06:59 06:59 06:59 Intake Total 2570 2270 Balance 2570 2270 Result Diagrams: 03/08/19 03:40 03/08/19 03:40 Phys Exam - Physical Examination Constitutional: NAD HEENT: PERRLA, moist MMs Cervical collar in place Respiratory: no wheezing, no rales, no rhonchi, clear to auscultation bilateral Cardiovascular: RRR, no significant murmur Gastrointestinal: soft, non-tender, no distention, positive bowel sounds Musculoskeletal: no edema, pulses present Neurological: non-focal, moves all 4 limbs Psychiatric: A&O x 3 Dx/Plan (1) Discitis of lhukoaeh-ydxephf-irpsg region Code(s): M46.41 - DISCITIS, UNSPECIFIED, [id number] REGION Status : Acute (2) Retropharyngeal abscess Code(s): J39.0 - RETROPHARYNGEAL AND PARAPHARYNGEAL ABSCESS Status: Acute (3) MSSA bacteremia Code(s): R78.81 - BACTEREMIA Status: Acute (4) Tachycardia Code(s): R00.0 - TACHYCARDIA, UNSPECIFIED Status: Acute Comment: tachycardia worsening, patient off the unit most of the time over the weekend, suspicious of leaving to continue drug abuse, infection may also be the source of the tachycardia. EKG with simple sinus tachycardia. (5) Chronic hepatitis C Code(s): B18.2 - CHRONIC VIRAL HEPATITIS C Status: Chronic (6) H/O bacteremia Code(s): Z87.898 - PERSONAL HISTORY OF OTHER SPECIFIED CONDITIONS Status: Chronic (7) H/O drug abuse Code(s): Z87.898 - PERSONAL HISTORY OF OTHER SPECIFIED CONDITIONS Status: Chronic (8) Hypertension Code(s): I10 - ESSENTIAL (PRIMARY) HYPERTENSION Status: Chronic Comment: Better with commencement of metoprolol. - Plan Continue metoprolol and antibiotics. -: Analgesic as needed. * .
[2019-03-08] MEDS ORDERED: Lorazepam 1 MG TAB PO PRN (19:46)
[2019-03-09] MEDS: CEFAZOLIN 2 GM in Premix Bag 1 BAG IVPB SCH ×3 (02:23→17:35)
[2019-03-09] MEDS: HYDROcodone/Acetaminophen 7.5/325 mg Tablet PO PRN ×2 (06:48→21:28)
[2019-03-09] MEDS: Docusate 100 MG CAP PO SCH ×2 (09:38→21:28)
[2019-03-09] MEDS: Saccharomyces boulardii 250 MG CAP PO SCH (09:38)
[2019-03-09] MEDS: Metoprolol Tartrate 25 MG TAB PO SCH ×2 (09:38→21:28)
--- NOTE | 2019-03-09 18:15 | PDOC.PN ---
- Subjective Encounter Start Date: 03/09/19 Encounter Start Time: 18:00 Subjective: f/u for discitis of the OAA joint on Ancef x 2 weeks. Intermittent -: neck pain but currently tolerable. - Objective Resuscitation Status - Order Detail: 02/24/19 10:01 Resuscitation Status Routine Resuscitation Status: FULL: Full Resuscitation MAR Reviewed: Yes Vital Signs & Weight: Vital Signs (12 hours) Temp Pulse Resp BP Pulse Ox 03/09/19 16:35 97.1 F L 100 18 119/74 03/09/19 12:14 97.6 F 104 H 18 127/87 94 L 03/09/19 08:00 96.1 F L 92 18 123/85 96 Weight Admit Weight 187 lb Weight 187 lb I&O: 03/08/19 03/09/19 03/10/19 06:59 06:59 06:59 Intake Total 2270 2110 Output Total 1025 Balance 2270 1085 Result Diagrams: 03/08/19 03:40 03/08/19 03:40 Phys Exam - Physical Examination Constitutional: NAD HEENT: PERRLA, sclera anicteric, oral pharynx no lesions C-collar in place Neck: no nodes, no JVD, supple Respiratory: no wheezing, no rales, no rhonchi, clear to auscultation bilateral S1, S2 Cardiovascular: RRR, no significant murmur, no rub, gallop Gastrointestinal: soft, non-tender, no distention, positive bowel sounds Musculoskeletal: no edema, pulses present Neurological: normal sensation, moves all 4 limbs Psychiatric: A&O x 3 Skin: normal turgor, cap refill <2 seconds Dx/Plan (1) Discitis of knpnpgvh-grripys-mgeps region Code(s): M46.41 - DISCITIS, UNSPECIFIED, [id number]-[id number]-QAYUR REGION Status : Acute Comment: Continue Ancef, pain control, C-collar (2) MSSA bacteremia Code(s): R78.81 - BACTEREMIA Status: Acute Comment: Continue Ancef IV (3) Retropharyngeal abscess Code(s): J39.0 - RETROPHARYNGEAL AND PARAPHARYNGEAL ABSCESS Status: Acute Comment: See above (4) Tachycardia Code(s): R00.0 - TACHYCARDIA, UNSPECIFIED Status: Acute Comment: tachycardia worsening, patient off the unit most of the time over the weekend, suspicious of leaving to continue drug abuse, infection may also be the source of the tachycardia. EKG with simple sinus tachycardia. 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
[2019-03-10] MEDS: CEFAZOLIN 2 GM in Premix Bag 1 BAG IVPB SCH ×3 (03:59→17:46)
[2019-03-10] MEDS: HYDROcodone/Acetaminophen 7.5/325 mg Tablet PO PRN ×2 (04:03→21:19)
--- NOTE | 2019-03-10 10:02 | PDOC.PN ---
- Subjective Encounter Start Date: 03/10/19 Encounter Start Time: 10:01 Subjective: Complaining of orthostatic dizziness. -: No fever. - Objective Resuscitation Status - Order Detail: 02/24/19 10:01 Resuscitation Status Routine Resuscitation Status: FULL: Full Resuscitation Vital Signs & Weight: Vital Signs (12 hours) Temp Pulse Resp BP Pulse Ox 03/10/19 07:27 97.0 F L 94 14 113/84 93 L 03/10/19 04:00 98 F 80 16 123/83 94 L Weight Admit Weight 187 lb Weight 187 lb I&O: 03/09/19 03/10/19 03/11/19 06:59 06:59 06:59 Intake Total 2110 1270 Output Total 1025 750 Balance 1085 520 Result Diagrams: 03/08/19 03:40 03/08/19 03:40 Phys Exam - Physical Examination Constitutional: NAD HEENT: PERRLA, moist MMs C collar in place Respiratory: no wheezing, no rales, no rhonchi Cardiovascular: RRR, no significant murmur Gastrointestinal: soft, non-tender, no distention, positive bowel sounds Musculoskeletal: no edema, pulses present Neurological: non-focal, moves all 4 limbs Psychiatric: A&O x 3 Dx/Plan (1) Discitis of kjagrhof-cfrjsiw-wwvkj region Code(s): M46.41 - DISCITIS, UNSPECIFIED, [id number] REGION Status : Acute Comment: Continue Ancef, pain control, C-collar (2) Retropharyngeal abscess Code(s): J39.0 - RETROPHARYNGEAL AND PARAPHARYNGEAL ABSCESS Status: Acute Comment: See above (3) MSSA bacteremia Code(s): R78.81 - BACTEREMIA Status: Acute Comment: Continue Ancef IV (4) Tachycardia Code(s): R00.0 - TACHYCARDIA, UNSPECIFIED Status: Acute Comment: Improved with Metoprolol 25mg BID (5) Chronic hepatitis C Code(s): B18.2 - CHRONIC VIRAL HEPATITIS C Status: Chronic (6) H/O bacteremia Code(s): Z87.898 - PERSONAL HISTORY OF OTHER SPECIFIED CONDITIONS Status: Chronic (7) H/O drug abuse Code(s): Z87.898 - PERSONAL HISTORY OF OTHER SPECIFIED CONDITIONS Status: Chronic (8) Hypertension Code(s): I10 - ESSENTIAL (PRIMARY) HYPERTENSION Status: Chronic Comment: Better with commencement of metoprolol. (9) Orthostatic dizziness Code(s): R42 - DIZZINESS AND GIDDINESS Status: Acute - Plan Continue antibiotics and C collar. -: Get orthostatic vitals. -: repeat UDS. -: Consult PT. * .
[2019-03-10] MEDS: Docusate 100 MG CAP PO SCH ×2 (10:12→21:19)
[2019-03-10] MEDS: Metoprolol Tartrate 25 MG TAB PO SCH ×2 (10:12→21:19)
[2019-03-10] MEDS: Saccharomyces boulardii 250 MG CAP PO SCH (10:12)
[2019-03-10 17:15] LABS: Amphetamine Detected (NotDetected); Barbiturates Screen Not Detected (NotDetected); Benzodiazepine Screen Not Detected (NotDetected); Cocaine Metabolite Screen Not Detected (NotDetected); Medtox Control Line Valid? VALID (VALID); Medtox Reader # READER 4; Methadone Not Detected (NotDetected); Methamphetamine Detected (NotDetected); Opiate Screen Detected (NotDetected); Oxycodone Screen Not Detected (NotDetected); Phencyclidine (PCP) Not Detected (NotDetected); THC/Cannabinoid Screen Not Detected (NotDetected); Tricyclic Screen Not Detected (NotDetected)
[2019-03-11] MEDS: CEFAZOLIN 2 GM in Premix Bag 1 BAG IVPB SCH ×3 (03:07→18:52)
[2019-03-11] MEDS: HYDROcodone/Acetaminophen 7.5/325 mg Tablet PO PRN ×3 (05:47→18:53)
[2019-03-11] MEDS: Saccharomyces boulardii 250 MG CAP PO SCH (09:04)
[2019-03-11] MEDS: Docusate 100 MG CAP PO SCH ×2 (09:04→20:25)
[2019-03-11] MEDS: Metoprolol Tartrate 25 MG TAB PO SCH ×2 (09:04→20:25)
--- NOTE | 2019-03-11 12:05 | PDOC.PN ---
- Subjective Encounter Start Date: 03/11/19 Encounter Start Time: 12:03 Subjective: Still complaining of orthostatic dizziness and neck pain. -: Denied fever and chills or focal weakness - Objective Resuscitation Status - Order Detail: 02/24/19 10:01 Resuscitation Status Routine Resuscitation Status: FULL: Full Resuscitation Vital Signs & Weight: Vital Signs (12 hours) Temp Pulse Resp BP Pulse Ox 03/11/19 11:20 97.6 F 86 16 117/73 95 03/11/19 07:31 96.7 F L 78 18 131/77 94 L 03/11/19 04:00 96.2 F L 87 16 121/77 96 03/11/19 00:30 97.8 F 89 16 122/73 93 L Weight Admit Weight 187 lb Weight 187 lb I&O: 03/10/19 03/11/19 03/12/19 06:59 06:59 06:59 Intake Total 1270 1985 Output Total 750 1525 Balance 520 460 Result Diagrams: 03/08/19 03:40 03/08/19 03:40 Phys Exam - Physical Examination Constitutional: NAD afebrile HEENT: PERRLA, moist MMs Cervical collar in place Respiratory: no wheezing, no rales, no rhonchi, clear to auscultation bilateral Cardiovascular: RRR, no significant murmur Gastrointestinal: soft, non-tender, no distention, positive bowel sounds Musculoskeletal: no edema, pulses present Neurological: non-focal, moves all 4 limbs Psychiatric: A&O x 3 Dx/Plan (1) Discitis of viugmxcq-vynbkjl-fnpvk region Code(s): M46.41 - DISCITIS, UNSPECIFIED, [id number]-[id number] REGION Status : Acute Comment: Continue Ancef, pain control, C-collar (2) Retropharyngeal abscess Code(s): J39.0 - RETROPHARYNGEAL AND PARAPHARYNGEAL ABSCESS Status: Acute Comment: See above (3) MSSA bacteremia Code(s): R78.81 - BACTEREMIA Status: Acute Comment: Continue Ancef IV (4) Tachycardia Code(s): R00.0 - TACHYCARDIA, UNSPECIFIED Status: Acute Comment: Improved with Metoprolol 25mg BID (5) Chronic hepatitis C Code(s): B18.2 - CHRONIC VIRAL HEPATITIS C Status: Chronic (6) H/O bacteremia Code(s): Z87.898 - PERSONAL HISTORY OF OTHER SPECIFIED CONDITIONS Status: Chronic (7) H/O drug abuse Code(s): Z87.898 - PERSONAL HISTORY OF OTHER SPECIFIED CONDITIONS Status: Chronic Comment: Repeat UDS positive for amphetamine. He admitted to recent use while in hospital. (8) Hypertension Code(s): I10 - ESSENTIAL (PRIMARY) HYPERTENSION Status: Chronic Comment: Better with commencement of metoprolol. (9) Orthostatic dizziness Code(s): R42 - DIZZINESS AND GIDDINESS Status: Acute - Plan Had a meeting with patient about recreational drug use. Due to presence of IV access, (PICC line) and continued use of recreatioinal substance, it is prudent for patient not to leave go outside to prevent injection of substance via the PICC line. Patient verbalized understanding and promised to abide. Will continue current IV antibiotics. PT to continue. Orthostatic vitals were unremarkable. * .
[2019-03-12] MEDS: CEFAZOLIN 2 GM in Premix Bag 1 BAG IVPB SCH ×3 (02:59→18:43)
[2019-03-12] MEDS: HYDROcodone/Acetaminophen 7.5/325 mg Tablet PO PRN ×2 (05:31→15:37)
[2019-03-12] MEDS: Metoprolol Tartrate 25 MG TAB PO SCH ×2 (08:46→20:48)
[2019-03-12] MEDS: Saccharomyces boulardii 250 MG CAP PO SCH (08:46)
[2019-03-12] MEDS: Docusate 100 MG CAP PO SCH ×2 (08:47→20:48)
[2019-03-12] MEDS ORDERED: Gadobenate Dimeglumine 529 MG/1 ML (20ML VIAL) ONE (14:32)
--- NOTE | 2019-03-12 14:36 | PDOC.PN ---
- Subjective Encounter Start Date: 03/12/19 Encounter Start Time: 14:35 Subjective: Complaining of right leg and foot numbness. -: Also having dizziness on standing as well neck pressure -: Remained afebrile - Objective Resuscitation Status - Order Detail: 02/24/19 10:01 Resuscitation Status Routine Resuscitation Status: FULL: Full Resuscitation Vital Signs & Weight: Vital Signs (12 hours) Temp Pulse Resp BP BP Pulse Ox 03/12/19 11:43 97.8 F 73 18 122/84 94 L 03/12/19 08:05 97.7 F 79 18 109/66 92 L Weight Admit Weight 187 lb Weight 187 lb I&O: 03/11/19 03/12/19 03/13/19 06:59 06:59 06:59 Intake Total 1985 580 Output Total 1525 600 Balance 460 -20 Result Diagrams: 03/08/19 03:40 03/08/19 03:40 Phys Exam - Physical Examination Constitutional: NAD HEENT: PERRLA, moist MMs Cervical collar in place Respiratory: no wheezing, no rales, no rhonchi, clear to auscultation bilateral Cardiovascular: RRR, no significant murmur Gastrointestinal: soft, non-tender, no distention, positive bowel sounds Musculoskeletal: no edema, pulses present Neurological: non-focal, moves all 4 limbs Psychiatric: A&O x 3 Dx/Plan (1) Discitis of nnpputgo-rsthvol-wfkdf region Code(s): M46.41 - DISCITIS, UNSPECIFIED, [id number] REGION Status : Acute Comment: Continue Ancef, pain control, C-collar. Complaining of right leg numbness and neck pressure (2) Retropharyngeal abscess Code(s): J39.0 - RETROPHARYNGEAL AND PARAPHARYNGEAL ABSCESS Status: Acute Comment: See above (3) MSSA bacteremia Code(s): R78.81 - BACTEREMIA Status: Acute Comment: Continue Ancef IV (4) Tachycardia Code(s): R00.0 - TACHYCARDIA, UNSPECIFIED Status: Acute Comment: Improved with Metoprolol 25mg BID (5) Chronic hepatitis C Code(s): B18.2 - CHRONIC VIRAL HEPATITIS C Status: Chronic (6) H/O bacteremia Code(s): Z87.898 - PERSONAL HISTORY OF OTHER SPECIFIED CONDITIONS Status: Chronic (7) H/O drug abuse Code(s): Z87.898 - PERSONAL HISTORY OF OTHER SPECIFIED CONDITIONS Status: Chronic Comment: Repeat UDS positive for amphetamine. He admitted to recent use while in hospital. (8) Hypertension Code(s): I10 - ESSENTIAL (PRIMARY) HYPERTENSION Status: Chronic Comment: Better with commencement of metoprolol. (9) Orthostatic dizziness Code(s): R42 - DIZZINESS AND GIDDINESS Status: Acute - Plan Get repeat MRI C spine -: Continue antibiotics, * .
--- NOTE | 2019-03-12 16:36 | MRI ---
Pre and postcontrast enhanced MRI images cervical spine dated 03/12/2019 and comparison made to previo us exam from 02/25/2019. HISTORY: discitis of C1-2. Previous and noted prevertebral phlegmon is again seen. Infectious process extends into the C1 to rui nt space. No disc is present at this level to suggest discitis. There is definite abnormal signal changes seen in the anterior arch of C1 as well as the odontoid and body of C2 compatible with the os teomyelitis. Some of the enhancement extends into the anterior epidural space compatible with the phlegmon extending into the central spinal canal. There is now it developed signal abnormality in the anterior aspect of the medulla and C2 cord. This is compatible with myelomalacia changes. No evidence of discitis seen in the mid and lower cervical spine. The rest of the cervical cord is un remarkable. No significant evidence of neural foraminal narrowing seen. IMPRESSION: 1.: Continued prevertebral and anterior epidural phlegmon with fluid and possible septic arthritis of the C1-2 articulation. 2: Interval development of signal abnormality on T2-weighted sequences in the anterior aspect of the mid and upper cervical cord.
--- NOTE | 2019-03-12 17:43 | PRG ---
DATE OF SERVICE: 03/12/2019 SUBJECTIVE: Mr. Londono is feeling better. Sometimes, he feels like there is a crackling in his neck. No headaches. No shortness of breath, cough, sputum production, or abdominal pain. No diarrhea. He has been afebrile. OBJECTIVE: VITAL SIGNS: Other vital signs are normal. GENERAL: Awake and alert, appears in no distress. HEENT: Ocular movements conjugate. NECK: The patient has a neck collar in place. LUNGS: Clear. HEART: S1 and S2, regular rate. No S3 or S4. ABDOMEN: Soft. Not distended or tender. No ascites. No bladder distention. LABORATORY DATA: WBC count is 7.1, hemoglobin 13.6, platelets of 429. Sodium 141, creatinine 0.75. Liver profile normal. Albumin 3.7. Urinalysis was normal. Repeat cervical spine MRI shows prevertebral anterior epidural phlegmon with fluid and possible septic arthritis, C1-C2 articulation, signal abnormality of T2 weighted sequences in the anterior aspect of the mid and upper cervical cord. ASSESSMENT AND DISCUSSION: History of meth use intravenous and now with methicillin-sensitive Staphylococcus aureus bacteremia with C1-C2 area infection, prevertebral abscess, odontoid process involvement. The patient will need to continue on IV cefazolin for a total of 8 weeks and the end date will be sometime around the end of March. After that, I would continue on oral Keflex 500 mg three times daily for at least 3 months, not longer. We will need followup MRI studies to verify resolution of the process down the road. Job ID: [id number]
[2019-03-13] MEDS: CEFAZOLIN 2 GM in Premix Bag 1 BAG IVPB SCH ×3 (03:02→18:17)
[2019-03-13] MEDS: Metoprolol Tartrate 25 MG TAB PO SCH ×2 (09:15→21:06)
[2019-03-13] MEDS: Saccharomyces boulardii 250 MG CAP PO SCH (09:15)
[2019-03-13] MEDS: HYDROcodone/Acetaminophen 7.5/325 mg Tablet PO PRN (09:15)
[2019-03-13] MEDS: Docusate 100 MG CAP PO SCH ×2 (09:15→21:05)
--- NOTE | 2019-03-13 17:35 | PDOC.PN ---
- Subjective Encounter Start Date: 03/13/19 Encounter Start Time: 17:33 Subjective: No new problem -: Ambulating more. -: Remained afebrile. - Objective Resuscitation Status - Order Detail: 02/24/19 10:01 Resuscitation Status Routine Resuscitation Status: FULL: Full Resuscitation Vital Signs & Weight: Vital Signs (12 hours) Temp Pulse Resp BP Pulse Ox 03/13/19 16:41 98.0 F 95 18 142/87 H 94 L 03/13/19 12:06 98.0 F 78 16 129/87 94 L 03/13/19 08:00 97.9 F 89 18 126/84 94 L Weight Admit Weight 187 lb Weight 187 lb I&O: 03/12/19 03/13/19 03/14/19 06:59 06:59 06:59 Intake Total 580 1050 Output Total 600 1100 Balance -20 -50 Result Diagrams: 03/08/19 03:40 03/08/19 03:40 Phys Exam - Physical Examination HEENT: PERRLA, moist MMs cervical collar in place Respiratory: no wheezing, no rales, no rhonchi, clear to auscultation bilateral Cardiovascular: RRR, no significant murmur Gastrointestinal: soft, non-tender, no distention, positive bowel sounds Musculoskeletal: no edema, pulses present Neurological: moves all 4 limbs conscious and alert. Psychiatric: A&O x 3 Dx/Plan (1) Osteomyelitis of vertebra of kplcwifz-osndrls-bojon region Code(s): M46.21 - OSTEOMYELITIS OF VERTEBRA, [id number] REGION Status: Acute (2) Septic arthritis of cervical spine Code(s): M46.52 - OTHER INFECTIVE SPONDYLOPATHIES, CERVICAL REGION Status: Acute (3) Retropharyngeal abscess Code(s): J39.0 - RETROPHARYNGEAL AND PARAPHARYNGEAL ABSCESS Status: Acute Comment: See above (4) MSSA bacteremia Code(s): R78.81 - BACTEREMIA Status: Acute Comment: Continue Ancef IV (5) Tachycardia Code(s): R00.0 - TACHYCARDIA, UNSPECIFIED Status: Acute Comment: Improved with Metoprolol 25mg BID (6) Chronic hepatitis C Code(s): B18.2 - CHRONIC VIRAL HEPATITIS C Status: Chronic (7) H/O bacteremia Code(s): Z87.898 - PERSONAL HISTORY OF OTHER SPECIFIED CONDITIONS Status: Chronic (8) H/O drug abuse Code(s): Z87.898 - PERSONAL HISTORY OF OTHER SPECIFIED CONDITIONS Status: Chronic Comment: Repeat UDS positive for amphetamine. He admitted to recent use while in hospital. (9) Hypertension Code(s): I10 - ESSENTIAL (PRIMARY) HYPERTENSION Status: Chronic Comment: Better with commencement of metoprolol. (10) Orthostatic dizziness Code(s): R42 - DIZZINESS AND GIDDINESS Status: Acute - Plan Continue current antibiotics. -: Contact Neurosurgery to re evaluate patient in view of repeat MRI. -: Repeat MRI showed interval development of T2 sigmal abnormality -: Patient advised to keep cervical in place at all times -: Discussed with ID * .
[2019-03-14] MEDS: CEFAZOLIN 2 GM in Premix Bag 1 BAG IVPB SCH ×3 (03:07→18:32)
[2019-03-14] MEDS: HYDROcodone/Acetaminophen 7.5/325 mg Tablet PO PRN (07:32)
[2019-03-14] MEDS: Saccharomyces boulardii 250 MG CAP PO SCH (10:06)
[2019-03-14] MEDS: Docusate 100 MG CAP PO SCH ×2 (10:06→20:57)
[2019-03-14] MEDS: Metoprolol Tartrate 25 MG TAB PO SCH ×2 (10:06→20:57)
[2019-03-14] MEDS ORDERED: CEFAZOLIN 2 GM in Premix Bag 1 BAG IVPB SCH (13:00)
--- NOTE | 2019-03-14 16:44 | PDOC.PN ---
- Subjective Encounter Start Date: 03/14/19 Encounter Start Time: 16:42 Subjective: No new problem -: Remained afebrile - Objective Resuscitation Status - Order Detail: 02/24/19 10:01 Resuscitation Status Routine Resuscitation Status: FULL: Full Resuscitation Vital Signs & Weight: Vital Signs (12 hours) Temp Pulse Resp BP Pulse Ox 03/14/19 11:45 97.6 F 97 16 118/77 97 03/14/19 07:54 97.7 F 90 16 107/73 92 L Weight Admit Weight 187 lb Weight 187 lb I&O: 03/13/19 03/14/19 03/15/19 06:59 06:59 06:59 Intake Total 1050 1360 Output Total 1100 Balance -50 1360 Result Diagrams: 03/08/19 03:40 03/08/19 03:40 Phys Exam - Physical Examination Constitutional: NAD HEENT: PERRLA, moist MMs cervical collar in place Respiratory: no wheezing, no rales, no rhonchi, clear to auscultation bilateral Cardiovascular: RRR, no significant murmur Gastrointestinal: soft, non-tender, no distention, positive bowel sounds Musculoskeletal: no edema, pulses present Neurological: non-focal, normal sensation, moves all 4 limbs Psychiatric: A&O x 3 Dx/Plan (1) Osteomyelitis of vertebra of tjhtxbru-anzwdkx-fzyik region Code(s): M46.21 - OSTEOMYELITIS OF VERTEBRA, [id number] REGION Status: Acute (2) Septic arthritis of cervical spine Code(s): M46.52 - OTHER INFECTIVE SPONDYLOPATHIES, CERVICAL REGION Status: Acute (3) Retropharyngeal abscess Code(s): J39.0 - RETROPHARYNGEAL AND PARAPHARYNGEAL ABSCESS Status: Acute Comment: See above (4) MSSA bacteremia Code(s): R78.81 - BACTEREMIA Status: Acute Comment: Continue Ancef IV (5) Tachycardia Code(s): R00.0 - TACHYCARDIA, UNSPECIFIED Status: Acute Comment: Improved with Metoprolol 25mg BID (6) Chronic hepatitis C Code(s): B18.2 - CHRONIC VIRAL HEPATITIS C Status: Chronic (7) H/O bacteremia Code(s): Z87.898 - PERSONAL HISTORY OF OTHER SPECIFIED CONDITIONS Status: Chronic (8) H/O drug abuse Code(s): Z87.898 - PERSONAL HISTORY OF OTHER SPECIFIED CONDITIONS Status: Chronic Comment: Repeat UDS positive for amphetamine. He admitted to recent use while in hospital. (9) Hypertension Code(s): I10 - ESSENTIAL (PRIMARY) HYPERTENSION Status: Chronic Comment: Better with commencement of metoprolol. (10) Orthostatic dizziness Code(s): R42 - DIZZINESS AND GIDDINESS Status: Acute - Plan Discussed case with Neurosurg re MRI report. -: No indication for surgical intervention. judicial use of collar stressed. -: Continue current antibiotics and other treatments * .
[2019-03-15] MEDS: CEFAZOLIN 2 GM in Premix Bag 1 BAG IVPB SCH ×3 (03:03→18:16)
--- NOTE | 2019-03-15 10:08 | PDOC.PN ---
- Subjective Encounter Start Date: 03/15/19 Encounter Start Time: 10:07 Subjective: No new problem -: denied dizziness. -: Ambulating better. - Objective Resuscitation Status - Order Detail: 02/24/19 10:01 Resuscitation Status Routine Resuscitation Status: FULL: Full Resuscitation Vital Signs & Weight: Vital Signs (12 hours) Temp Pulse Resp BP BP Pulse Ox 03/15/19 07:53 97.9 F 94 18 118/77 93 L 03/15/19 04:00 97.8 F 79 20 98/59 L 95 03/15/19 00:26 98.1 F 83 20 143/86 H 94 L Weight Admit Weight 187 lb Weight 187 lb I&O: 03/14/19 03/15/19 03/16/19 06:59 06:59 06:59 Intake Total 1360 2420 Balance 1360 2420 Result Diagrams: 03/08/19 03:40 03/08/19 03:40 Phys Exam - Physical Examination Constitutional: NAD HEENT: PERRLA, moist MMs Cervical collar in place Respiratory: no wheezing, no rales, no rhonchi, clear to auscultation bilateral Cardiovascular: RRR, no significant murmur Gastrointestinal: soft, non-tender, no distention, positive bowel sounds Musculoskeletal: no edema, pulses present Neurological: non-focal, normal sensation, moves all 4 limbs Psychiatric: normal affect, A&O x 3 Dx/Plan (1) Osteomyelitis of vertebra of kvfeeflg-qhtdfmx-ougny region Code(s): M46.21 - OSTEOMYELITIS OF VERTEBRA, [id number] REGION Status: Acute (2) Septic arthritis of cervical spine Code(s): M46.52 - OTHER INFECTIVE SPONDYLOPATHIES, CERVICAL REGION Status: Acute (3) Retropharyngeal abscess Code(s): J39.0 - RETROPHARYNGEAL AND PARAPHARYNGEAL ABSCESS Status: Acute Comment: See above (4) MSSA bacteremia Code(s): R78.81 - BACTEREMIA Status: Acute Comment: Continue Ancef IV (5) Tachycardia Code(s): R00.0 - TACHYCARDIA, UNSPECIFIED Status: Acute Comment: Improved with Metoprolol 25mg BID (6) Chronic hepatitis C Code(s): B18.2 - CHRONIC VIRAL HEPATITIS C Status: Chronic (7) H/O bacteremia Code(s): Z87.898 - PERSONAL HISTORY OF OTHER SPECIFIED CONDITIONS Status: Chronic (8) H/O drug abuse Code(s): Z87.898 - PERSONAL HISTORY OF OTHER SPECIFIED CONDITIONS Status: Chronic Comment: Repeat UDS positive for amphetamine. He admitted to recent use while in hospital. (9) Hypertension Code(s): I10 - ESSENTIAL (PRIMARY) HYPERTENSION Status: Chronic Comment: Better with commencement of metoprolol. (10) Orthostatic dizziness Code(s): R42 - DIZZINESS AND GIDDINESS Status: Acute - Plan Continue IV antibiotics. -: Need to keep cervical collar in place reiterated. -: Repeat CBC and CMP in the am. * .
[2019-03-15] MEDS: Metoprolol Tartrate 25 MG TAB PO SCH ×2 (10:30→20:25)
[2019-03-15] MEDS: Saccharomyces boulardii 250 MG CAP PO SCH (10:30)
[2019-03-15] MEDS: Docusate 100 MG CAP PO SCH ×2 (10:30→20:25)
[2019-03-16] MEDS: CEFAZOLIN 2 GM in Premix Bag 1 BAG IVPB SCH ×3 (03:20→18:21)
[2019-03-16 05:17] LABS: #Basophils 0.1 thou/uL (0.0-0.2); #Eosinphils 0.2 thou/uL (0.0-0.7); #Lymphocytes 2.4 thou/uL (1.20-3.40); #Monocytes 0.9 thou/uL (0.11-0.59); #Neutrophils 3.8 thou/uL (1.40-6.50); %Basophils 1.1 % (0.0-1.0); %Eosinophils 3.1 % (0.0-10.0); %Lymphocytes 33.2 % (21.0-51.0); %Monocytes 11.5 % (0.0-10.0); %Neutrophils 51.1 % (42.0-75.0); Hemoglobin 13.8 g/dL (14.0-18.0); Mean Corpuscular HGB CONC 33.6 g/dL (32.0-36.0); Mean Corpuscular Hemoglobin 31.6 pg (27.0-31.0); Mean Corpuscular Volume 93.9 fL (78.0-98.0); Mean Platelet Volume 6.9 fL (7.4-10.4); Platelet Count 359 thou/uL (130-400); RBC Distribution Width 12.5 % (11.5-14.5); Red Blood Cell (RBC) Count 4.37 mill/uL (4.70-6.10); White Blood Cell (WBC) Count 7.3 thou/uL (4.8-10.8)
[2019-03-16 05:40] LABS: ALT (SGPT) 8 U/L (8-55); AST (SGOT) 20 U/L (5-34); Albumin 3.8 g/dL (3.5-5.0); Alkaline Phosphatase 82 U/L (40-150); Anion Gap 13 mmol/L (10-20); BUN (Urea Nitrogen) 12 mg/dL (8.9-20.6); Bilirubin, Total 0.2 mg/dL (0.2-1.2); Calc. Creatinine Clearance 122 mL/min (70-130); Calcium 9.6 mg/dL (7.8-10.44); Carbon Dioxide 26 mmol/L (22-29); Chloride 107 mmol/L (98-107); Estimated GFR-MDRD 90; Globulin 3.4 g/dL (2.4-3.5); Glucose 98 mg/dL (70-105); Potassium 4.3 mmol/L (3.5-5.1); Protein, Total 7.2 g/dL (6.0-8.3); Sodium 142 mmol/L (136-145)
[2019-03-16] MEDS: Saccharomyces boulardii 250 MG CAP PO SCH (09:30)
[2019-03-16] MEDS: Metoprolol Tartrate 25 MG TAB PO SCH ×2 (09:30→21:29)
[2019-03-16] MEDS: Docusate 100 MG CAP PO SCH ×2 (09:30→21:29)
--- NOTE | 2019-03-16 09:40 | PRG ---
DATE OF SERVICE: 03/16/2019 SUBJECTIVE: The patient is seen and examined at the bedside. He is not in any pain. His appetite is good. He had bowel movement last night. OBJECTIVE: VITAL SIGNS: Blood pressure is 121/79, pulse is 95, respirations 16, O2 saturation 94% on room air. His temperature is 97.8, maximal temperature is 98.3. NECK: He wears a neck collar. HEENT: Pupils are responding to light properly. Sclerae are nonicteric. Oral mucosa is moist. LUNGS: Clear. HEART: S1, S2 normal. No S3. No S4. ABDOMEN: Soft, nontender, nondistended. EXTREMITIES: No clubbing, cyanosis, or edema. NEUROLOGICAL EXAMINATION: He is alert and oriented x4. There is no any motor or sensory deficits present. Cranial nerves are intact. LABORATORY DATA: Labs showed a white count of 7.3, hemoglobin 13.8, hematocrit 41.1, platelet count 359,000. Normal chemistry. Urine drug screen done on the 10 of March showed opioids positive, amphetamines and methamphetamines were detected. Microbiology, blood cultures x2 normal, and urine culture x1 normal. IMPRESSION: 1. 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 2. Septic arthritis of cervical spine. 3. Retropharyngeal abscess. 4. Methicillin-susceptible Staphylococcus aureus bacteremia. 5. Tachycardia, resolved. 6. Chronic hepatitis C. 7. Drug user, positive for amphetamines, opioids, and methamphetamines. 8. Hypertension. PLAN: Plan is to continue his IV antibiotic. He is on cefazolin 2 g every 8 hours IV piggyback. He had PICC line placed in the left arm Monday. We are going to arrange outpatient antibiotic therapy with block and case maker. For now, we will continue current regimen. Continue his collar in place and . Job ID: [id number]
[2019-03-17] MEDS: CEFAZOLIN 2 GM in Premix Bag 1 BAG IVPB SCH ×3 (03:27→19:20)
[2019-03-17] MEDS: Saccharomyces boulardii 250 MG CAP PO SCH (09:05)
[2019-03-17] MEDS: Docusate 100 MG CAP PO SCH ×2 (09:05→20:49)
[2019-03-17] MEDS: Metoprolol Tartrate 25 MG TAB PO SCH ×2 (09:05→20:49)
--- NOTE | 2019-03-17 13:05 | PRG ---
DATE OF SERVICE: 03/17/2019 SUBJECTIVE: This morning, he is still trying to catch up on his sleep. He could not sleep last night, but he does not have much complaints to offer other than that. OBJECTIVE: VITAL SIGNS: Blood pressure is 133/82, pulse is 107, temperature 97.8, respirations 20, and O2 saturation is 97% on room air. HEENT: His pupils are responding to light. Sclerae are nonicteric. He wears the collar. LUNGS: Clear. HEART: S1-S2 normal. ABDOMEN: Soft and nontender. EXTREMITIES: No clubbing, cyanosis, or edema. NEUROLOGICAL: Intact. LABORATORY DATA: None today. IMPRESSION: 1. Osteomyelitis of vertebra of ufsmusbo-dhkdoke-buxuz region. 2. Septic arthritis of cervical spine. 3. Retropharyngeal abscess. 4. Methicillin sensitive Staphylococcus aureus bacteremia. 5. Chronic hepatitis C. 6. Drug user. Positive for amphetamines, opiates, and methamphetamines. 7. Hypertension. PLAN: Plan is to continue IV antibiotic. He has a PICC line. He is getting cefazolin 2 g every 8 hours, IV piggyback. We are going to continue the treatment. Apparently, he needs to continue this IV treatments while in the hospital because of his outpatient compliance failure, and we will continue his DVT prophylaxis with SCDs. Job ID: [id number]
[2019-03-18] MEDS: CEFAZOLIN 2 GM in Premix Bag 1 BAG IVPB SCH ×3 (03:16→18:23)
[2019-03-18] MEDS: Metoprolol Tartrate 25 MG TAB PO SCH ×2 (09:31→20:16)
[2019-03-18] MEDS: Docusate 100 MG CAP PO SCH ×2 (09:31→20:16)
[2019-03-18] MEDS: Saccharomyces boulardii 250 MG CAP PO SCH (09:31)
--- NOTE | 2019-03-18 15:07 | PRG ---
DATE OF SERVICE: SUBJECTIVE: The patient is seen and examined at the bedside. He does not have much complaints to offer. OBJECTIVE: VITAL SIGNS: Blood pressure is 131/83, pulse is 96, temperature is 98.1, respiratory rate is 18, O2 saturation is 95% on room air. HEENT: His eyes are PERRLA. Sclerae nonicteric. NECK: He wears the collar. LUNGS: Clear. HEART: S1 and S2 normal. ABDOMEN: Soft, nontender, and nondistended. EXTREMITIES: No clubbing, cyanosis, or edema. NEUROLOGICAL: He is alert and oriented x4. There is no any motor or sensory deficits. LABORATORY DATA: None today. IMPRESSION: 1. Osteomyelitis of vertebra of occipitoatlantoaxial. 2. Septic arthritis of cervical spine. 3. Retropharyngeal abscess. 4. Methicillin-sensitive Staphylococcus aureus bacteremia. 5. Chronic hepatitis C. 6. Drug abuser. He is positive for amphetamines, opiates, and methamphetamines on his urine drug screen. 7. Hypertension. PLAN: Continue IV antibiotic. He is getting cefazolin 2 g every 8 hours IV piggyback. Apparently, he needs to continue his IV treatment until the end of March to finish the course. We will continue DVT prophylaxis with SCDs. Job ID: [id number]
[2019-03-19] MEDS: CEFAZOLIN 2 GM in Premix Bag 1 BAG IVPB SCH ×3 (02:37→18:30)
[2019-03-19] MEDS: Docusate 100 MG CAP PO SCH ×2 (10:15→21:17)
[2019-03-19] MEDS: Metoprolol Tartrate 25 MG TAB PO SCH ×2 (10:15→21:18)
[2019-03-19] MEDS: Saccharomyces boulardii 250 MG CAP PO SCH (10:15)
--- NOTE | 2019-03-19 16:23 | PRG ---
DATE OF SERVICE: 03/19/2019 SUBJECTIVE: The patient is seen and examined at the bedside. He is doing quite well. He does not have much complaints to offer. OBJECTIVE: VITAL SIGNS: Blood pressure is 129/80, temperature 98.1, respiratory rate 22, O2 saturation 94% on room air. NECK: He wears neck collar. HEENT: His eyes; pupils are responding to light properly. Sclerae are nonicteric. LUNGS: Clear. HEART: S1 and S2 normal. ABDOMEN: Soft, nontender. EXTREMITIES: No clubbing, cyanosis, or edema. NEUROLOGICAL: He is alert and oriented x4. There is no any motor or sensory deficits. LABORATORY DATA: Labs none today. IMPRESSION: 1. Osteomyelitis of vertebrae of occipitoatlantal axial part. 2. Septic arthritis of cervical spine neck. 3. Retropharyngeal abscess. 4. Methicillin sensitive Staphylococcus aureus bacteremia. 5. Chronic hepatitis C. 6. Drug abuser. Positive for amphetamines, opioids, methamphetamines. 7. Hypertension. PLAN: Continue IV antibiotic therapy until the end of March. Continue SCDs and DVT prophylaxis. Job ID: [id number]
[2019-03-20] MEDS: CEFAZOLIN 2 GM in Premix Bag 1 BAG IVPB SCH ×3 (02:31→18:06)
[2019-03-20] MEDS: Metoprolol Tartrate 25 MG TAB PO SCH ×2 (08:17→20:05)
[2019-03-20] MEDS: Saccharomyces boulardii 250 MG CAP PO SCH (08:17)
[2019-03-20] MEDS: Docusate 100 MG CAP PO SCH ×2 (08:17→20:05)
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
[2019-03-21] MEDS: CEFAZOLIN 2 GM in Premix Bag 1 BAG IVPB SCH ×3 (02:42→18:02)
[2019-03-21] MEDS: Metoprolol Tartrate 25 MG TAB PO SCH ×2 (08:13→20:50)
[2019-03-21] MEDS: Saccharomyces boulardii 250 MG CAP PO SCH (08:13)
[2019-03-21] MEDS: Docusate 100 MG CAP PO SCH ×2 (08:13→20:50)
[2019-03-22] MEDS: CEFAZOLIN 2 GM in Premix Bag 1 BAG IVPB SCH ×3 (02:21→18:39)
[2019-03-22] MEDS: Saccharomyces boulardii 250 MG CAP PO SCH (09:42)
[2019-03-22] MEDS: Metoprolol Tartrate 25 MG TAB PO SCH ×2 (09:42→20:28)
[2019-03-22] MEDS: Docusate 100 MG CAP PO SCH ×2 (09:42→20:28)
--- NOTE | 2019-03-22 15:12 | PDOC.PN ---
- Subjective Encounter Start Date: 03/22/19 Encounter Start Time: 15:09 Mr. Landaverde was seen today in follow-up of Osteomyelitis of the cervical spine. He does not have any new complaints. - Objective Resuscitation Status - Order Detail: 02/24/19 10:01 Resuscitation Status Routine Resuscitation Status: FULL: Full Resuscitation MAR Reviewed: Yes Vital Signs & Weight: Vital Signs (12 hours) Temp Pulse Resp BP BP Pulse Ox 03/22/19 09:43 123/74 03/22/19 07:47 98.1 F 94 16 98/59 L 95 03/22/19 04:00 97.7 F 89 20 133/76 95 Weight Admit Weight 187 lb Weight 187 lb I&O: 03/21/19 03/22/19 03/23/19 06:59 06:59 06:59 Intake Total 2770 2920 Balance 2770 2920 Result Diagrams: 03/16/19 04:58 03/16/19 04:58 Phys Exam - Physical Examination HEENT: PERRLA Respiratory: no wheezing, no rales, no rhonchi, clear to auscultation bilateral Cardiovascular: RRR, no significant murmur, no rub Gastrointestinal: soft, non-tender, no distention, positive bowel sounds Musculoskeletal: no edema, pulses present Dx/Plan (1) Osteomyelitis of vertebra of nevuzani-ckqwgzb-wouuc region Code(s): M46.21 - OSTEOMYELITIS OF VERTEBRA, [id number] REGION Status: Acute (2) Hypertension Code(s): I10 - ESSENTIAL (PRIMARY) HYPERTENSION Status: Chronic Comment: Better with commencement of metoprolol. (3) Polysubstance abuse Code(s): F19.10 - OTHER PSYCHOACTIVE SUBSTANCE ABUSE, UNCOMPLICATED Status: Chronic - Plan * Osteomyelitis of the cervical spine- continue IV Cefazolin * HTN- blood pressure is stable. * Patient will remain in the hospital the receive his complete IV antibiotic treatment
[2019-03-22] MEDS: Acetaminophen 325 MG TAB PO PRN (20:27)
[2019-03-23] MEDS: CEFAZOLIN 2 GM in Premix Bag 1 BAG IVPB SCH ×3 (02:36→18:28)
[2019-03-23] MEDS: Metoprolol Tartrate 25 MG TAB PO SCH ×2 (09:24→20:07)
[2019-03-23] MEDS: Saccharomyces boulardii 250 MG CAP PO SCH (09:24)
[2019-03-23] MEDS: Docusate 100 MG CAP PO SCH ×2 (09:24→20:07)
--- NOTE | 2019-03-23 14:09 | PDOC.PN ---
- Subjective Encounter Start Date: 03/23/19 Encounter Start Time: 14:08 Mr. Landaverde was seen today in follow-up of Osteomyelitis of the cervical vertebrae. He does not have any complaints this morning. - Objective Resuscitation Status - Order Detail: 02/24/19 10:01 Resuscitation Status Routine Resuscitation Status: FULL: Full Resuscitation MAR Reviewed: Yes Vital Signs & Weight: Vital Signs (12 hours) Temp Pulse Resp BP Pulse Ox 03/23/19 09:30 95 03/23/19 08:00 97.8 F 92 16 135/88 95 Weight Admit Weight 187 lb Weight 187 lb I&O: 03/22/19 03/23/19 03/24/19 06:59 06:59 06:59 Intake Total 2920 Balance 2920 Result Diagrams: 03/16/19 04:58 03/16/19 04:58 Phys Exam - Physical Examination HEENT: PERRLA Respiratory: no wheezing, no rales, no rhonchi, clear to auscultation bilateral Cardiovascular: RRR, no significant murmur, no rub Gastrointestinal: soft, non-tender, no distention, positive bowel sounds Musculoskeletal: no edema Dx/Plan (1) Osteomyelitis of vertebra of llcyydgw-osxwbol-qzivw region Code(s): M46.21 - OSTEOMYELITIS OF VERTEBRA, [id number] REGION Status: Acute (2) Hypertension Code(s): I10 - ESSENTIAL (PRIMARY) HYPERTENSION Status: Chronic Comment: Better with commencement of metoprolol. (3) Polysubstance abuse Code(s): F19.10 - OTHER PSYCHOACTIVE SUBSTANCE ABUSE, UNCOMPLICATED Status: Chronic - Plan * Osteomyelitis of the cervical spine- continue IV Cefazolin * HTN- blood pressure is stable.
[2019-03-24] MEDS: CEFAZOLIN 2 GM in Premix Bag 1 BAG IVPB SCH ×3 (02:30→18:09)
[2019-03-24] MEDS: Docusate 100 MG CAP PO SCH ×2 (08:46→20:58)
[2019-03-24] MEDS: Metoprolol Tartrate 25 MG TAB PO SCH ×2 (08:46→20:58)
[2019-03-24] MEDS: Saccharomyces boulardii 250 MG CAP PO SCH (08:46)
--- NOTE | 2019-03-24 12:05 | PDOC.PN ---
- Subjective Encounter Start Date: 03/24/19 Encounter Start Time: 11:00 Mr. Landaverde was seen today in follow-up of Cervical osteomyelitis. He does not have any complaints. - Objective Resuscitation Status - Order Detail: 02/24/19 10:01 Resuscitation Status Routine Resuscitation Status: FULL: Full Resuscitation MAR Reviewed: Yes Vital Signs & Weight: Vital Signs (12 hours) Temp Pulse Resp BP Pulse Ox 03/24/19 08:00 97.8 F 91 20 145/96 H 96 Weight Admit Weight 187 lb Weight 187 lb I&O: 03/23/19 03/24/19 03/25/19 06:59 06:59 06:59 Intake Total 2130 Balance 2130 Result Diagrams: 03/16/19 04:58 03/16/19 04:58 Phys Exam - Physical Examination HEENT: PERRLA Respiratory: no wheezing, no rales, no rhonchi, clear to auscultation bilateral Cardiovascular: RRR, no significant murmur, no rub Gastrointestinal: soft, non-tender, no distention, positive bowel sounds Musculoskeletal: no edema, pulses present Dx/Plan (1) Osteomyelitis of vertebra of ltwsjmlm-wgfuikt-qjdff region Code(s): M46.21 - OSTEOMYELITIS OF VERTEBRA, [id number] REGION Status: Acute (2) Hypertension Code(s): I10 - ESSENTIAL (PRIMARY) HYPERTENSION Status: Chronic Comment: Better with commencement of metoprolol. (3) Polysubstance abuse Code(s): F19.10 - OTHER PSYCHOACTIVE SUBSTANCE ABUSE, UNCOMPLICATED Status: Chronic - Plan * Osteomyelitis- continue IV Cefazolin * HTN- blood pressure is stable . * Patient will remain in the hospital until He has completes his IV antibiotics
[2019-03-25] MEDS: CEFAZOLIN 2 GM in Premix Bag 1 BAG IVPB SCH ×3 (02:48→18:31)
[2019-03-25] MEDS: Saccharomyces boulardii 250 MG CAP PO SCH (08:59)
[2019-03-25] MEDS: Docusate 100 MG CAP PO SCH ×2 (08:59→20:38)
[2019-03-25] MEDS: Metoprolol Tartrate 25 MG TAB PO SCH ×2 (10:59→20:38)
--- NOTE | 2019-03-25 16:25 | PDOC.PN ---
- Subjective Encounter Start Date: 03/25/19 Encounter Start Time: 16:20 Subjective: f/u for cervical discitis/osteomyelitis on Cefazolin. States not sleeping -: well and would like something to assist. - Objective Resuscitation Status - Order Detail: 02/24/19 10:01 Resuscitation Status Routine Resuscitation Status: FULL: Full Resuscitation MAR Reviewed: Yes Vital Signs & Weight: Vital Signs (12 hours) Temp Pulse Resp BP BP Pulse Ox 03/25/19 15:00 97.8 F 92 16 130/70 94 L 03/25/19 11:00 97.7 F 90 12 117/85 93 L 03/25/19 08:59 95 03/25/19 07:15 97.7 F 95 16 101/65 94 L Weight Admit Weight 187 lb Weight 187 lb I&O: 03/24/19 03/25/19 03/26/19 06:59 06:59 06:59 Intake Total 2130 1140 Balance 2130 1140 Result Diagrams: 03/16/19 04:58 03/16/19 04:58 Phys Exam - Physical Examination Constitutional: NAD HEENT: PERRLA, sclera anicteric, oral pharynx no lesions Neck: no nodes, no JVD, supple, full ROM Respiratory: no wheezing, no rales, no rhonchi, clear to auscultation bilateral S1, S2 Cardiovascular: RRR, no significant murmur, no rub, gallop Gastrointestinal: soft, non-tender, no distention, positive bowel sounds Musculoskeletal: no edema, pulses present Neurological: normal sensation, moves all 4 limbs Psychiatric: A&O x 3 Skin: normal turgor, cap refill <2 seconds Dx/Plan (1) Discitis of ldjevoyh-wmlfxvf-wansn region Code(s): M46.41 - DISCITIS, UNSPECIFIED, [id number] REGION Status : Deleted Comment: Continue Ancef 2gm IV q8h, plan to complete IV abx course inpatient due to social/financial issues (2) MSSA bacteremia Code(s): R78.81 - BACTEREMIA Status: Acute Comment: Continue Ancef IV (3) Retropharyngeal abscess Code(s): J39.0 - RETROPHARYNGEAL AND PARAPHARYNGEAL ABSCESS Status: Acute Comment: See above (4) Tachycardia Code(s): R00.0 - TACHYCARDIA, UNSPECIFIED Status: Acute Comment: Metoprolol 25mg BID - 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
[2019-03-25] MEDS: Zolpidem Tartrate 5 MG TAB PO PRN (23:41)
[2019-03-26] MEDS: CEFAZOLIN 2 GM in Premix Bag 1 BAG IVPB SCH ×3 (02:59→18:25)
[2019-03-26] MEDS: Saccharomyces boulardii 250 MG CAP PO SCH (09:01)
[2019-03-26] MEDS: Metoprolol Tartrate 25 MG TAB PO SCH ×2 (09:02→21:06)
[2019-03-26] MEDS: Docusate 100 MG CAP PO SCH ×2 (09:04→21:06)
--- NOTE | 2019-03-26 17:51 | PDOC.PN ---
- Subjective Encounter Start Date: 03/26/19 Encounter Start Time: 17:45 Subjective: f/u for cervical osteomyelitis on Ancef IV. No new complaints - Objective Resuscitation Status - Order Detail: 02/24/19 10:01 Resuscitation Status Routine Resuscitation Status: FULL: Full Resuscitation MAR Reviewed: Yes Vital Signs & Weight: Vital Signs (12 hours) Temp Pulse Resp BP Pulse Ox 03/26/19 07:38 97.7 F 81 16 133/88 94 L Weight Admit Weight 187 lb Weight 187 lb I&O: 03/25/19 03/26/19 03/27/19 06:59 06:59 06:59 Intake Total 1140 2670 Balance 1140 2670 Result Diagrams: 03/16/19 04:58 03/16/19 04:58 Phys Exam - Physical Examination Constitutional: NAD HEENT: PERRLA, sclera anicteric, oral pharynx no lesions Neck: no nodes, no JVD, supple, full ROM Respiratory: no wheezing, no rales, no rhonchi, clear to auscultation bilateral S1, S2 Cardiovascular: RRR, no significant murmur, no rub, gallop Gastrointestinal: soft, non-tender, no distention, positive bowel sounds Musculoskeletal: no edema, pulses present Neurological: normal sensation, moves all 4 limbs Psychiatric: A&O x 3 Skin: normal turgor, cap refill <2 seconds Dx/Plan (1) Discitis of crnptusk-vyyysmx-aupdy region Code(s): M46.41 - DISCITIS, UNSPECIFIED, YSVETZIE-SXUFFJE-CERVI REGION Status : Deleted Comment: Continue Ancef 2gm IV q8h, plan to complete IV abx course inpatient due to social/financial issues (2) MSSA bacteremia Code(s): R78.81 - BACTEREMIA Status: Acute Comment: Continue Ancef IV (3) Retropharyngeal abscess Code(s): J39.0 - RETROPHARYNGEAL AND PARAPHARYNGEAL ABSCESS Status: Acute Comment: See above (4) Tachycardia Code(s): R00.0 - TACHYCARDIA, UNSPECIFIED Status: Acute Comment: Metoprolol 25mg BID (5) Polysubstance abuse Code(s): F19.10 - OTHER PSYCHOACTIVE SUBSTANCE ABUSE, UNCOMPLICATED Status: Chronic Comment: + methamphetamines, opiates (6) Chronic hepatitis C Code(s): B18.2 - CHRONIC VIRAL HEPATITIS C Status: Chronic - Plan continue antibiotics, 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
[2019-03-26] MEDS: Zolpidem Tartrate 5 MG TAB PO PRN (21:06)
[2019-03-27] MEDS: CEFAZOLIN 2 GM in Premix Bag 1 BAG IVPB SCH ×3 (03:37→18:15)
[2019-03-27] MEDS: Metoprolol Tartrate 25 MG TAB PO SCH ×2 (09:00→21:38)
[2019-03-27] MEDS: Docusate 100 MG CAP PO SCH ×2 (09:01→21:38)
[2019-03-27] MEDS: Saccharomyces boulardii 250 MG CAP PO SCH (09:01)
--- NOTE | 2019-03-27 15:28 | PDOC.PN ---
- Subjective Encounter Start Date: 03/27/19 Encounter Start Time: 15:15 Subjective: f/u for cervical osteomyelitis on Ancef. No new complaints. - Objective Resuscitation Status - Order Detail: 02/24/19 10:01 Resuscitation Status Routine Resuscitation Status: FULL: Full Resuscitation MAR Reviewed: Yes Vital Signs & Weight: Vital Signs (12 hours) Temp Pulse Resp BP Pulse Ox 03/27/19 08:59 95 03/27/19 07:58 97.6 F 86 16 126/81 95 Weight Admit Weight 187 lb Weight 187 lb I&O: 03/26/19 03/27/19 03/28/19 06:59 06:59 06:59 Intake Total 2670 Balance 2670 Result Diagrams: 03/16/19 04:58 03/16/19 04:58 Phys Exam - Physical Examination Constitutional: NAD HEENT: PERRLA, sclera anicteric, oral pharynx no lesions Neck: no nodes, no JVD, supple, full ROM Respiratory: no wheezing, no rales, no rhonchi, clear to auscultation bilateral S1, S2 Cardiovascular: RRR, no significant murmur, no rub, gallop Gastrointestinal: soft, non-tender, no distention, positive bowel sounds Musculoskeletal: no edema, pulses present Neurological: normal sensation, moves all 4 limbs Psychiatric: A&O x 3 Skin: normal turgor, cap refill <2 seconds Dx/Plan (1) Discitis of crfszcjr-zjrwewh-eharc region Code(s): M46.41 - DISCITIS, UNSPECIFIED, [id number] REGION Status : Deleted Comment: Continue Ancef 2gm IV q8h, plan to complete IV abx course inpatient due to social/financial issues (2) MSSA bacteremia Code(s): R78.81 - BACTEREMIA Status: Acute Comment: Continue Ancef IV (3) Retropharyngeal abscess Code(s): J39.0 - RETROPHARYNGEAL AND PARAPHARYNGEAL ABSCESS Status: Acute Comment: See above (4) Tachycardia Code(s): R00.0 - TACHYCARDIA, UNSPECIFIED Status: Acute Comment: Metoprolol 25mg BID (5) Polysubstance abuse Code(s): F19.10 - OTHER PSYCHOACTIVE SUBSTANCE ABUSE, UNCOMPLICATED Status: Chronic Comment: + methamphetamines, opiates (6) Chronic hepatitis C Code(s): B18.2 - CHRONIC VIRAL HEPATITIS C Status: Chronic - 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
[2019-03-28] MEDS: CEFAZOLIN 2 GM in Premix Bag 1 BAG IVPB SCH ×3 (02:38→18:18)
[2019-03-28] MEDS: Docusate 100 MG CAP PO SCH ×2 (08:44→20:09)
[2019-03-28] MEDS: Saccharomyces boulardii 250 MG CAP PO SCH (08:44)
[2019-03-28] MEDS: Metoprolol Tartrate 25 MG TAB PO SCH ×2 (08:44→20:08)
--- NOTE | 2019-03-28 15:56 | PDOC.PN ---
- Subjective Encounter Start Date: 03/28/19 Encounter Start Time: 16:00 Subjective: f/u for cervical osteomyelitis on Ancef. No new issues reported. - Objective Resuscitation Status - Order Detail: 02/24/19 10:01 Resuscitation Status Routine Resuscitation Status: FULL: Full Resuscitation MAR Reviewed: Yes Vital Signs & Weight: Vital Signs (12 hours) Temp Pulse Resp BP Pulse Ox 03/28/19 08:44 94 L 03/28/19 07:43 97.6 F 81 14 115/72 94 L Weight Admit Weight 187 lb Weight 187 lb I&O: 03/27/19 03/28/19 03/29/19 06:59 06:59 06:59 Intake Total 2250 1000 Balance 2250 1000 Result Diagrams: 03/16/19 04:58 03/16/19 04:58 Phys Exam - Physical Examination Constitutional: NAD HEENT: PERRLA, sclera anicteric, oral pharynx no lesions cervical collar in place Neck: no nodes, no JVD, supple Respiratory: no wheezing, no rales, no rhonchi, clear to auscultation bilateral S1, S2 Cardiovascular: RRR, no significant murmur, no rub, gallop Gastrointestinal: soft, non-tender, no distention, positive bowel sounds Musculoskeletal: no edema, pulses present Neurological: normal sensation, moves all 4 limbs Psychiatric: A&O x 3 Skin: normal turgor, cap refill <2 seconds Dx/Plan (1) Discitis of brjzjebd-uthivca-xdwci region Code(s): M46.41 - DISCITIS, UNSPECIFIED, [id number] REGION Status : Deleted Comment: Continue Ancef 2gm IV q8h, plan to complete IV abx course inpatient due to social/financial issues (2) MSSA bacteremia Code(s): R78.81 - BACTEREMIA Status: Acute Comment: Continue Ancef IV (3) Retropharyngeal abscess Code(s): J39.0 - RETROPHARYNGEAL AND PARAPHARYNGEAL ABSCESS Status: Acute Comment: See above (4) Tachycardia Code(s): R00.0 - TACHYCARDIA, UNSPECIFIED Status: Acute Comment: Metoprolol 25mg BID (5) Polysubstance abuse Code(s): F19.10 - OTHER PSYCHOACTIVE SUBSTANCE ABUSE, UNCOMPLICATED Status: Chronic Comment: + methamphetamines, opiates (6) Chronic hepatitis C Code(s): B18.2 - CHRONIC VIRAL HEPATITIS C Status: Chronic - 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
[2019-03-28] MEDS: Zolpidem Tartrate 5 MG TAB PO PRN (20:08)
[2019-03-29] MEDS: CEFAZOLIN 2 GM in Premix Bag 1 BAG IVPB SCH ×3 (02:41→18:12)
[2019-03-29] MEDS: Saccharomyces boulardii 250 MG CAP PO SCH (10:20)
[2019-03-29] MEDS: Docusate 100 MG CAP PO SCH ×2 (10:21→20:01)
[2019-03-29] MEDS: Metoprolol Tartrate 25 MG TAB PO SCH ×2 (10:21→20:01)
--- NOTE | 2019-03-29 16:05 | PDOC.PN ---
- Subjective Encounter Start Date: 03/29/19 Encounter Start Time: 16:00 Subjective: f/u for cervical osteomyelitis with IV Ancef scheduled until . No -: new issues. - Objective Resuscitation Status - Order Detail: 02/24/19 10:01 Resuscitation Status Routine Resuscitation Status: FULL: Full Resuscitation MAR Reviewed: Yes Vital Signs & Weight: Vital Signs (12 hours) Temp Pulse Resp BP Pulse Ox 03/29/19 07:17 97.8 F 91 18 131/93 H 96 Weight Admit Weight 187 lb Weight 187 lb I&O: 03/28/19 03/29/19 03/30/19 06:59 06:59 06:59 Intake Total 2250 4100 Balance 2250 4100 Result Diagrams: 03/16/19 04:58 03/16/19 04:58 Phys Exam - Physical Examination Constitutional: NAD HEENT: PERRLA, sclera anicteric, oral pharynx no lesions Neck: no nodes, no JVD, supple, full ROM Respiratory: no wheezing, no rales, no rhonchi, clear to auscultation bilateral S1, S2 Cardiovascular: RRR (s), no significant murmur, no rub, gallop Gastrointestinal: soft, non-tender, no distention, positive bowel sounds Musculoskeletal: no edema, pulses present Neurological: normal sensation, moves all 4 limbs Psychiatric: A&O x 3 Skin: normal turgor, cap refill <2 seconds Dx/Plan (1) Discitis of eqnfbhps-zwgkbjm-kzabp region Code(s): M46.41 - DISCITIS, UNSPECIFIED, [id number] REGION Status : Deleted Comment: Continue Ancef 2gm IV q8h, plan to complete IV abx course inpatient due to social/financial issues, end date for IV Ancef 04/07/19 (2) MSSA bacteremia Code(s): R78.81 - BACTEREMIA Status: Acute Comment: Continue Ancef IV (3) Retropharyngeal abscess Code(s): J39.0 - RETROPHARYNGEAL AND PARAPHARYNGEAL ABSCESS Status: Acute Comment: See above (4) Tachycardia Code(s): R00.0 - TACHYCARDIA, UNSPECIFIED Status: Acute Comment: Metoprolol 25mg BID (5) Polysubstance abuse Code(s): F19.10 - OTHER PSYCHOACTIVE SUBSTANCE ABUSE, UNCOMPLICATED Status: Chronic Comment: + methamphetamines, opiates (6) Chronic hepatitis C Code(s): B18.2 - CHRONIC VIRAL HEPATITIS C Status: Chronic - 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
[2019-03-29] MEDS: Zolpidem Tartrate 5 MG TAB PO PRN (20:01)
[2019-03-30] MEDS: CEFAZOLIN 2 GM in Premix Bag 1 BAG IVPB SCH ×3 (03:08→18:27)
[2019-03-30] MEDS: Saccharomyces boulardii 250 MG CAP PO SCH (11:32)
[2019-03-30] MEDS: Metoprolol Tartrate 25 MG TAB PO SCH ×2 (11:32→20:32)
[2019-03-30] MEDS: Docusate 100 MG CAP PO SCH ×2 (11:32→20:31)
--- NOTE | 2019-03-30 15:46 | PDOC.PN ---
- Subjective Encounter Start Date: 03/30/19 Encounter Start Time: 09:15 Mr. Landaverde was seen today in follow-up of osteomyelitis of the C-Spine. He does not have any new complaints. - Objective Resuscitation Status - Order Detail: 02/24/19 10:01 Resuscitation Status Routine Resuscitation Status: FULL: Full Resuscitation Vital Signs & Weight: Vital Signs (12 hours) Temp Pulse Resp BP Pulse Ox 03/30/19 07:40 98 F 91 18 108/72 96 Weight Admit Weight 187 lb Weight 187 lb I&O: 03/29/19 03/30/19 03/31/19 06:59 06:59 06:59 Intake Total 4100 350 Balance 4100 350 Result Diagrams: 03/16/19 04:58 03/16/19 04:58 Phys Exam - Physical Examination HEENT: PERRLA Respiratory: no wheezing, no rales, no rhonchi, clear to auscultation bilateral Cardiovascular: RRR, no significant murmur, no rub Gastrointestinal: soft, non-tender, no distention, positive bowel sounds Musculoskeletal: no edema, pulses present Neurological: non-focal Dx/Plan (1) Osteomyelitis of vertebra of hfmpmvri-mjdkgye-nuhrh region Code(s): M46.21 - OSTEOMYELITIS OF VERTEBRA, [id number] REGION Status: Acute (2) Hypertension Code(s): I10 - ESSENTIAL (PRIMARY) HYPERTENSION Status: Chronic Comment: Better with commencement of metoprolol. (3) Polysubstance abuse Code(s): F19.10 - OTHER PSYCHOACTIVE SUBSTANCE ABUSE, UNCOMPLICATED Status: Chronic Comment: + methamphetamines, opiates - Plan * Osteomyelitis of the C. [place]- continue IV Cefazolin until 04/07 * Ambulation.
[2019-03-31] MEDS: CEFAZOLIN 2 GM in Premix Bag 1 BAG IVPB SCH ×3 (02:47→18:19)
[2019-03-31] MEDS: Saccharomyces boulardii 250 MG CAP PO SCH (08:20)
[2019-03-31] MEDS: Metoprolol Tartrate 25 MG TAB PO SCH ×2 (08:20→20:21)
[2019-03-31] MEDS: Docusate 100 MG CAP PO SCH ×2 (08:20→20:21)
--- NOTE | 2019-03-31 15:02 | PDOC.PN ---
- Subjective Encounter Start Date: 03/31/19 Encounter Start Time: 15:01 Mr. Landaverde was seen today in follow-up of cervical spine osteomyelitis. He does not have any complaints. He was noted to be out of his C-collar. - Objective Resuscitation Status - Order Detail: 02/24/19 10:01 Resuscitation Status Routine Resuscitation Status: FULL: Full Resuscitation MAR Reviewed: Yes Vital Signs & Weight: Vital Signs (12 hours) Temp Pulse Resp BP Pulse Ox 03/31/19 08:03 97.8 F 89 16 146/85 H 92 L Weight Admit Weight 187 lb Weight 187 lb I&O: 03/30/19 03/31/19 04/01/19 06:59 06:59 06:59 Intake Total 350 730 Balance 350 730 Result Diagrams: 03/16/19 04:58 03/16/19 04:58 Phys Exam - Physical Examination HEENT: PERRLA Respiratory: no wheezing, no rales, no rhonchi, clear to auscultation bilateral Cardiovascular: RRR, no significant murmur, no rub Gastrointestinal: soft, non-tender, no distention, positive bowel sounds Musculoskeletal: no edema, pulses present Neurological: non-focal, normal sensation, moves all 4 limbs Dx/Plan (1) Osteomyelitis of vertebra of iruhunny-zauplra-zdylm region Code(s): M46.21 - OSTEOMYELITIS OF VERTEBRA, [id number] REGION Status: Acute (2) Hypertension Code(s): I10 - ESSENTIAL (PRIMARY) HYPERTENSION Status: Chronic Comment: Better with commencement of metoprolol. (3) Polysubstance abuse Code(s): F19.10 - OTHER PSYCHOACTIVE SUBSTANCE ABUSE, UNCOMPLICATED Status: Chronic Comment: + methamphetamines, opiates - Plan * Osteomyelitis of the C-Spine- continue IV Cefazolin * HTN- blood pressure has been stable on Metoprolol.
[2019-04-01] MEDS: CEFAZOLIN 2 GM in Premix Bag 1 BAG IVPB SCH ×3 (02:50→18:20)
[2019-04-01] MEDS: Saccharomyces boulardii 250 MG CAP PO SCH (08:29)
[2019-04-01] MEDS: Docusate 100 MG CAP PO SCH ×2 (08:30→19:33)
[2019-04-01] MEDS: Metoprolol Tartrate 25 MG TAB PO SCH ×2 (08:30→19:33)
--- NOTE | 2019-04-01 15:54 | PDOC.PN ---
- Subjective Encounter Start Date: 04/01/19 Encounter Start Time: 15:52 Mr. Landaverde was seen today in follow-up of osteomyelitis of the C-spine. He does not have any new complaints. - Objective Resuscitation Status - Order Detail: 02/24/19 10:01 Resuscitation Status Routine Resuscitation Status: FULL: Full Resuscitation MAR Reviewed: Yes Vital Signs & Weight: Vital Signs (12 hours) Temp Pulse Resp BP Pulse Ox 04/01/19 08:00 97.7 F 83 20 118/77 94 L Weight Admit Weight 187 lb Weight 187 lb I&O: 03/31/19 04/01/19 04/02/19 06:59 06:59 06:59 Intake Total 730 1250 Balance 730 1250 Result Diagrams: 03/16/19 04:58 03/16/19 04:58 Phys Exam - Physical Examination HEENT: PERRLA, sclera anicteric Respiratory: no wheezing, no rales, no rhonchi, clear to auscultation bilateral Cardiovascular: RRR, no significant murmur, no rub Gastrointestinal: soft, non-tender, no distention, positive bowel sounds Musculoskeletal: no edema, pulses present Neurological: non-focal, normal sensation, moves all 4 limbs Dx/Plan (1) Osteomyelitis of vertebra of cgvtfdso-qlsmefw-gomox region Code(s): M46.21 - OSTEOMYELITIS OF VERTEBRA, [id number] REGION Status: Acute (2) Hypertension Code(s): I10 - ESSENTIAL (PRIMARY) HYPERTENSION Status: Chronic Comment: Better with commencement of metoprolol. (3) Polysubstance abuse Code(s): F19.10 - OTHER PSYCHOACTIVE SUBSTANCE ABUSE, UNCOMPLICATED Status: Chronic Comment: + methamphetamines, opiates - Plan * Osteomyelitis of the C-Spine- continue IV Cefazolin * HTN- blood pressure is stable- continue Metoprolol.
[2019-04-02] MEDS: CEFAZOLIN 2 GM in Premix Bag 1 BAG IVPB SCH ×3 (02:39→18:11)
[2019-04-02] MEDS: Metoprolol Tartrate 25 MG TAB PO SCH ×2 (10:37→20:44)
[2019-04-02] MEDS: Docusate 100 MG CAP PO SCH ×2 (10:37→20:44)
[2019-04-02] MEDS: Saccharomyces boulardii 250 MG CAP PO SCH (10:37)
[2019-04-03] MEDS: CEFAZOLIN 2 GM in Premix Bag 1 BAG IVPB SCH ×3 (02:30→17:44)
[2019-04-03] MEDS: Saccharomyces boulardii 250 MG CAP PO SCH (10:46)
[2019-04-03] MEDS: Metoprolol Tartrate 25 MG TAB PO SCH ×2 (10:46→20:26)
[2019-04-03] MEDS: Docusate 100 MG CAP PO SCH ×2 (10:46→20:26)
--- NOTE | 2019-04-03 16:36 | PDOC.PN ---
- Subjective Encounter Start Date: 04/03/19 Encounter Start Time: 13:00 Mr. Landaverde was seen today in follow-up of C- Spine Osteomyelitis. He does not have any new complaints. - Objective Resuscitation Status - Order Detail: 02/24/19 10:01 Resuscitation Status Routine Resuscitation Status: FULL: Full Resuscitation MAR Reviewed: Yes Vital Signs & Weight: Vital Signs (12 hours) Temp Pulse Resp BP Pulse Ox 04/03/19 07:46 97.6 F 88 16 116/77 93 L Weight Admit Weight 187 lb Weight 187 lb I&O: 04/02/19 04/03/19 04/04/19 06:59 06:59 06:59 Intake Total 2170 1600 Balance 2170 1600 Result Diagrams: 03/16/19 04:58 03/16/19 04:58 Phys Exam - Physical Examination HEENT: PERRLA Respiratory: no wheezing, no rales, no rhonchi, clear to auscultation bilateral Cardiovascular: RRR, no significant murmur, no rub Gastrointestinal: soft, non-tender, no distention, positive bowel sounds Musculoskeletal: no edema, pulses present Neurological: non-focal Dx/Plan (1) Osteomyelitis of vertebra of hbduetau-uztjiwm-qfcgi region Code(s): M46.21 - OSTEOMYELITIS OF VERTEBRA, [id number] REGION Status: Acute (2) Hypertension Code(s): I10 - ESSENTIAL (PRIMARY) HYPERTENSION Status: Chronic Comment: Better with commencement of metoprolol. (3) Polysubstance abuse Code(s): F19.10 - OTHER PSYCHOACTIVE SUBSTANCE ABUSE, UNCOMPLICATED Status: Chronic Comment: + methamphetamines, opiates - Plan * Osteomyelitis of the C- Spine- continue IV Cefazolin until April 07 * HTN- blood pressure has been stable- continue Metoprolol * Home after completion of IV Antibiotics.
[2019-04-04] MEDS: CEFAZOLIN 2 GM in Premix Bag 1 BAG IVPB SCH ×3 (01:56→17:41)
[2019-04-04] MEDS: Docusate 100 MG CAP PO SCH ×2 (09:16→20:58)
[2019-04-04] MEDS: Metoprolol Tartrate 25 MG TAB PO SCH ×2 (09:16→20:58)
[2019-04-04] MEDS: Saccharomyces boulardii 250 MG CAP PO SCH (09:16)
--- NOTE | 2019-04-04 11:10 | PDOC.PN ---
- Subjective Encounter Start Date: 04/04/19 Encounter Start Time: 11:08 Patient seen and examined for Prevertebral abscess. No diarrhea/fever/neuro deficits. No new complaints. No overnight events - Objective Resuscitation Status - Order Detail: 02/24/19 10:01 Resuscitation Status Routine Resuscitation Status: FULL: Full Resuscitation MAR Reviewed: Yes Vital Signs & Weight: Vital Signs (12 hours) Temp Pulse Resp BP Pulse Ox 04/04/19 07:50 98.1 F 135 H 16 162/104 H 96 Weight Admit Weight 187 lb Weight 187 lb I&O: 04/03/19 04/04/19 04/05/19 06:59 06:59 06:59 Intake Total 1600 1500 Balance 1600 1500 Result Diagrams: 03/16/19 04:58 03/16/19 04:58 Phys Exam - Physical Examination Constitutional: NAD Respiratory: no wheezing, no rhonchi Cardiovascular: RRR, no rub Gastrointestinal: soft, non-tender, positive bowel sounds Musculoskeletal: no edema Neurological: moves all 4 limbs Dx/Plan - Plan DVT proph w/SCDs IMPRESSION: MSSA bacteremia/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 HTN Meth abuse Chronic Anemia Hypokalemia - corrected PLAN: AM labs weekly Cont Cefazolin - last day 04/07 followed by Keflex [address] Mari's note (02/24/19) Cont other meds as below Stable for discharge Review of Systems - Review of Systems Respiratory: negative: Cough, Dry, Shortness of Breath, Hemoptysis, SOB with Excertion, Pleuritic Pain, Sputum, Wheezing Cardiovascular: negative: chest pain, palpitations, orthopnea, paroxysmal nocturnal dyspnea, edema, light headedness, other - Medications/Allergies Allergies/Adverse Reactions: Allergies Allergy/AdvReac Type Severity Reaction Status Date / Time morphine Allergy Verified 02/24/19 12:34 ANTIHISTAMINES Allergy Uncoded 02/10/19 18:01 Medications: Current Medications Acetaminophen (Tylenol) 650 mg PO Q4H PRN PRN Reason: Headache/Fever/Mild Pain (1-3) Last Admin: 03/22/19 20:27 Dose: 650 mg Artificial Tears (Tears Naturale) 2 drop EA EYE PRN PRN PRN Reason: Dry Eyes Bisacodyl (Dulcolax) 10 mg PO DAILYPRN PRN PRN Reason: Constipation Last Admin: 03/05/19 20:03 Dose: 10 mg Calcium Carbonate (Tums) 1,000 mg PO Q4H PRN PRN Reason: Heartburn or Indigestion Chlorzoxazone (Parafon Dsc) 500 mg PO TID PRN PRN Reason: Muscle Spasm Last Admin: 03/12/19 10:03 Dose: 500 mg Docusate Sodium (Colace) 100 mg PO BID [facility] Last Admin: 04/04/19 09:16 Dose: 100 mg Guaifenesin (Robitussin Sf) 200 mg PO Q4H PRN PRN Reason: Cough Hydralazine HCl (Apresoline) 10 mg SLOW IVP Q4H PRN PRN Reason: SBP > 180 and HR < 70 Last Admin: 02/24/19 15:12 Dose: 10 mg Cefazolin Sodium/Dextrose 2 gm (/ Device) 50 mls @ 100 mls/hr IVPB 0200,1000, 1800 [facility] Last Admin: 04/04/19 09:16 Dose: 50 mls Labetalol HCl (Normodyne) 20 mg SLOW IVP Q4H PRN PRN Reason: SBP > 180 and HR >/= 70 Loperamide HCl (Imodium) 2 mg PO PRN PRN PRN Reason: Diarrhea/Loose Stools Loratadine (Claritin) 10 mg PO DAILYPRN PRN PRN Reason: Sinus Symptoms Metoprolol Tartrate (Lopressor) 25 mg PO BID [facility] Last Admin: 04/04/19 09:16 Dose: 25 mg Mineral Oil/White Petrolatum (Eucerin Cream) 0 gm TOP BIDPRN PRN PRN Reason: Dry Skin Ondansetron HCl (Zofran Odt) 4 mg PO Q6H PRN PRN Reason: Nausea/Vomiting Ondansetron HCl (Zofran) 4 mg IVP Q6H PRN PRN Reason: Nausea/Vomiting Polyethylene Glycol (Miralax) 17 gm PO DAILYPRN PRN PRN Reason: Constipation Saccharomyces Boulardii (Florastor) 250 mg PO DAILY [facility] Last Admin: 04/04/19 09:16 Dose: 250 mg Senna (Senokot) 2 tab PO HSPRN [facility] Last Admin: 03/13/19 09:18 Dose: 2 tab Senna/Docusate Sodium (Senokot S) 2 tab PO BID PRN PRN Reason: Constipation Last Admin: 03/01/19 20:55 Dose: 2 tab Sodium Chloride ([place] Nasal [place] 0.65%) 0 ml EA NARE QIDPRN PRN PRN Reason: Nasal Congestion Sodium Chloride (Flush - Normal Saline) 10 ml IVF Q12HR [facility]EL[facility] Last Admin: 04/04/19 09:16 Dose: 10 ml Sodium Chloride (Flush - Normal Saline) 10 ml IVF PRN PRN PRN Reason: Saline Flush Last Admin: 03/11/19 11:42 Dose: 10 ml Sodium Chloride (Flush - Normal Saline) 10 ml IVF PRN PRN PRN Reason: Saline Flush Throat Lozenges (Cepastat Lozenges) 1 miriam PO Q2H PRN PRN Reason: Sore Throat Zolpidem Tartrate (Ambien) 10 mg PO HSPRN PRN PRN Reason: Insomnia Last Admin: 03/29/19 20:01 Dose: 10 mg
[2019-04-04] MEDS: Calcium Carbonate + Vit D 1 TAB PO SCH (17:41)
[2019-04-05] MEDS: CEFAZOLIN 2 GM in Premix Bag 1 BAG IVPB SCH ×3 (02:56→17:58)
[2019-04-05 06:17] LABS: #Basophils 0.1 thou/uL (0.0-0.2); #Eosinphils 0.2 thou/uL (0.0-0.7); #Lymphocytes 1.7 thou/uL (1.20-3.40); #Monocytes 0.7 thou/uL (0.11-0.59); #Neutrophils 4.8 thou/uL (1.40-6.50); %Basophils 0.8 % (0.0-1.0); %Eosinophils 2.7 % (0.0-10.0); %Neutrophils 64.6 % (42.0-75.0); Hemoglobin 15.1 g/dL (14.0-18.0); Mean Corpuscular HGB CONC 33.2 g/dL (32.0-36.0); Mean Corpuscular Hemoglobin 31.7 pg (27.0-31.0); Mean Corpuscular Volume 95.4 fL (78.0-98.0); Mean Platelet Volume 6.7 fL (7.4-10.4); Platelet Count 335 thou/uL (130-400); Red Blood Cell (RBC) Count 4.77 mill/uL (4.70-6.10); White Blood Cell (WBC) Count 7.5 thou/uL (4.8-10.8)
[2019-04-05 06:55] LABS: ALT (SGPT) 14 U/L (8-55); AST (SGOT) 23 U/L (5-34); Albumin 4.3 g/dL (3.5-5.0); Alkaline Phosphatase 88 U/L (40-150); Anion Gap 11 mmol/L (10-20); BUN (Urea Nitrogen) 15 mg/dL (8.9-20.6); Bilirubin, Total 0.6 mg/dL (0.2-1.2); CRP (Inflammatory) Less than 0.50 mg/dL (= or < 0.5); Calc. Creatinine Clearance 118 mL/min (70-130); Carbon Dioxide 25 mmol/L (22-29); Chloride 107 mmol/L (98-107); Estimated GFR-MDRD 87; Globulin 3.2 g/dL (2.4-3.5); Glucose 111 mg/dL (70-105); Potassium 3.6 mmol/L (3.5-5.1); Protein, Total 7.5 g/dL (6.0-8.3); Sodium 139 mmol/L (136-145)
[2019-04-05] MEDS: Docusate 100 MG CAP PO SCH ×2 (09:55→20:52)
[2019-04-05] MEDS: Calcium Carbonate + Vit D 1 TAB PO SCH ×2 (09:55→17:58)
[2019-04-05] MEDS: Saccharomyces boulardii 250 MG CAP PO SCH (09:55)
[2019-04-05] MEDS: Multivit, Therapeutic 1 TAB PO SCH (09:55)
[2019-04-05] MEDS: Metoprolol Tartrate 25 MG TAB PO SCH ×2 (09:55→20:52)
[2019-04-05] MEDS ORDERED: cloNIDine 0.1 MG TAB PO PRN (12:18)
[2019-04-05] MEDS ORDERED: cloNIDine 0.1 MG TAB PO SCH (12:30)
[2019-04-05] MEDS: cloNIDine 0.1 MG TAB PO SCH (20:52)
--- NOTE | 2019-04-05 22:44 | PDOC.PN ---
- Subjective Encounter Start Date: 04/05/19 Encounter Start Time: 07:30 Patient seen and examined for bacteremia. No new focal deficits. No CP/fever. No new complaints. No overnight events - Objective Resuscitation Status - Order Detail: 02/24/19 10:01 Resuscitation Status Routine Resuscitation Status: FULL: Full Resuscitation MAR Reviewed: Yes Vital Signs & Weight: Vital Signs (12 hours) Temp Pulse Resp BP BP Pulse Ox 04/05/19 20:52 151/97 H 04/05/19 20:00 97.6 F 120 H 20 151/97 H 98 04/05/19 13:27 137/99 H Weight Admit Weight 187 lb Weight 187 lb I&O: 04/04/19 04/05/19 04/06/19 06:59 06:59 06:59 Intake Total 1500 2400 645 Balance 1500 2400 645 Result Diagrams: 04/05/19 05:35 04/05/19 05:35 Phys Exam - Physical Examination Constitutional: NAD Respiratory: no wheezing, no rhonchi Cardiovascular: RRR, no rub Gastrointestinal: soft, non-tender, positive bowel sounds Musculoskeletal: no edema Dx/Plan - Plan DVT proph w/SCDs IMPRESSION: MSSA bacteremia/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 HTN - uncontrolled Meth abuse Chronic Anemia Hypokalemia - replaced PLAN: Add Clonidine BID and PRN Cont other meds as below Cont Cefazolin - last day 04/07 followed by Keflex 500 mg TID x [address] Mari's note (02/24/19) Cont other meds as below Will also need repeat MRI as outpt Stable for discharge Review of Systems - Review of Systems Respiratory: negative: Cough, Dry, Shortness of Breath, Hemoptysis, SOB with Excertion, Pleuritic Pain, Sputum, Wheezing Cardiovascular: negative: chest pain, palpitations, orthopnea, paroxysmal nocturnal dyspnea, edema, light headedness, other - Medications/Allergies Allergies/Adverse Reactions: Allergies Allergy/AdvReac Type Severity Reaction Status Date / Time morphine Allergy Verified 02/24/19 12:34 ANTIHISTAMINES Allergy Uncoded 02/10/19 18:01 Medications: Current Medications Acetaminophen (Tylenol) 650 mg PO Q4H PRN PRN Reason: Headache/Fever/Mild Pain (1-3) Last Admin: 03/22/19 20:27 Dose: 650 mg Artificial Tears (Tears Naturale) 2 drop EA EYE PRN PRN PRN Reason: Dry Eyes Bisacodyl (Dulcolax) 10 mg PO DAILYPRN PRN PRN Reason: Constipation Last Admin: 03/05/19 20:03 Dose: 10 mg Calcium Carbonate (Tums) 1,000 mg PO Q4H PRN PRN Reason: Heartburn or Indigestion Calcium/Vitamin D (Caltrate 600 + Vit D) 1 tab PO BID-[facility] Last Admin: 04/05/19 17:58 Dose: 1 tab Chlorzoxazone (Parafon Dsc) 500 mg PO TID PRN PRN Reason: Muscle Spasm Last Admin: 03/12/19 10:03 Dose: 500 mg Clonidine (Catapres) 0.1 mg PO BID [facility] Last Admin: 04/05/19 20:52 Dose: 0.1 mg Clonidine (Catapres) 0.1 mg PO Q4H PRN PRN Reason: SBP GREATER THAN 160 Docusate Sodium (Colace) 100 mg PO BID [facility] Last Admin: 04/05/19 20:52 Dose: 100 mg Guaifenesin (Robitussin Sf) 200 mg PO Q4H PRN PRN Reason: Cough Hydralazine HCl (Apresoline) 10 mg SLOW IVP Q4H PRN PRN Reason: SBP > 180 and HR < 70 Last Admin: 02/24/19 15:12 Dose: 10 mg Cefazolin Sodium/Dextrose 2 gm (/ Device) 50 mls @ 100 mls/hr IVPB 0200,1000, 1800 [facility] Last Admin: 04/05/19 17:58 Dose: 50 mls Labetalol HCl (Normodyne) 20 mg SLOW IVP Q4H PRN PRN Reason: SBP > 180 and HR >/= 70 Loperamide HCl (Imodium) 2 mg PO PRN PRN PRN Reason: Diarrhea/Loose Stools Loratadine (Claritin) 10 mg PO DAILYPRN PRN PRN Reason: Sinus Symptoms Metoprolol Tartrate (Lopressor) 25 mg PO BID [facility] Last Admin: 04/05/19 20:52 Dose: 25 mg Mineral Oil/White Petrolatum (Eucerin Cream) 0 gm TOP BIDPRN PRN PRN Reason: Dry Skin Multivitamins (Theragran) 1 tab PO DAILY [facility] Last Admin: 04/05/19 09:55 Dose: 1 tab Ondansetron HCl (Zofran Odt) 4 mg PO Q6H PRN PRN Reason: Nausea/Vomiting Ondansetron HCl (Zofran) 4 mg IVP Q6H PRN PRN Reason: Nausea/Vomiting Polyethylene Glycol (Miralax) 17 gm PO DAILYPRN PRN PRN Reason: Constipation Saccharomyces Boulardii (Florastor) 250 mg PO DAILY [facility] Last Admin: 04/05/19 09:55 Dose: 250 mg Senna (Senokot) 2 tab PO HSPRN [facility] Last Admin: 03/13/19 09:18 Dose: 2 tab Senna/Docusate Sodium (Senokot S) 2 tab PO BID PRN PRN Reason: Constipation Last Admin: 03/01/19 20:55 Dose: 2 tab Sodium Chloride ([place] Nasal [place] 0.65%) 0 ml EA NARE QIDPRN PRN PRN Reason: Nasal Congestion Sodium Chloride (Flush - Normal Saline) 10 ml IVF Q12HR [facility] Last Admin: 04/05/19 20:52 Dose: 10 ml Sodium Chloride (Flush - Normal Saline) 10 ml IVF PRN PRN PRN Reason: Saline Flush Last Admin: 03/11/19 11:42 Dose: 10 ml Sodium Chloride (Flush - Normal Saline) 10 ml IVF PRN PRN PRN Reason: Saline Flush Throat Lozenges (Cepastat Lozenges) 1 miriam PO Q2H PRN PRN Reason: Sore Throat Zolpidem Tartrate (Ambien) 10 mg PO HSPRN PRN PRN Reason: Insomnia Last Admin: 03/29/19 20:01 Dose: 10 mg
[2019-04-06] MEDS: CEFAZOLIN 2 GM in Premix Bag 1 BAG IVPB SCH ×3 (01:46→18:00)
[2019-04-06 07:32] VITALS: BP 158/104; TEMP 97.5
[2019-04-06] MEDS: Metoprolol Tartrate 25 MG TAB PO SCH (09:00)
[2019-04-06] MEDS: cloNIDine 0.1 MG TAB PO SCH (09:00)
[2019-04-06] MEDS: Docusate 100 MG CAP PO SCH (09:00)
[2019-04-06] MEDS: Calcium Carbonate + Vit D 1 TAB PO SCH ×2 (09:00→18:00)
[2019-04-06] MEDS: Multivit, Therapeutic 1 TAB PO SCH (09:00)
[2019-04-06] MEDS: Saccharomyces boulardii 250 MG CAP PO SCH (09:00)
--- NOTE | 2019-04-06 22:54 | PDOC.PN ---
- Subjective Encounter Start Date: 04/06/19 Encounter Start Time: 10:00 Patient seen and examined for bacteremia. No fever/diarrhea/N or focal deficits. No new complaints. No overnight events - Objective Resuscitation Status - Order Detail: 02/24/19 10:01 Resuscitation Status Routine Resuscitation Status: FULL: Full Resuscitation MAR Reviewed: Yes Vital Signs & Weight: Weight Admit Weight 187 lb Weight 187 lb I&O: 04/05/19 04/06/19 04/07/19 06:59 06:59 06:59 Intake Total 2400 985 Balance 2400 985 Result Diagrams: 04/05/19 05:35 04/05/19 05:35 Phys Exam - Physical Examination Constitutional: NAD Respiratory: no wheezing, no rhonchi Cardiovascular: RRR Gastrointestinal: soft, non-tender, positive bowel sounds Musculoskeletal: no edema Neurological: moves all 4 limbs Dx/Plan - Plan DVT proph w/SCDs IMPRESSION: MSSA bacteremia/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 HTN - uncontrolled Meth abuse Chronic Anemia Hypokalemia - replaced PLAN: Cont Cefazolin - last day 04/07 followed by Keflex 500 mg TID x [address] Mari's note (02/24/19) Cont other meds as below Repeat MRI as outpt Stable for discharge Review of Systems - Review of Systems Respiratory: negative: Cough, Dry, Shortness of Breath, Hemoptysis, SOB with Excertion, Pleuritic Pain, Sputum, Wheezing Cardiovascular: negative: chest pain, palpitations, orthopnea, paroxysmal nocturnal dyspnea, edema, light headedness, other Gastrointestinal: negative: Nausea, Vomiting, Abdominal Pain, Diarrhea, Constipation, Melena, Hematochezia, Other - Medications/Allergies Allergies/Adverse Reactions: Allergies Allergy/AdvReac Type Severity Reaction Status Date / Time morphine Allergy Verified 02/24/19 12:34 ANTIHISTAMINES Allergy Uncoded 02/10/19 18:01 Medications: Current Medications Acetaminophen (Tylenol) 650 mg PO Q4H PRN PRN Reason: Headache/Fever/Mild Pain (1-3) Last Admin: 03/22/19 20:27 Dose: 650 mg Artificial Tears (Tears Naturale) 2 drop EA EYE PRN PRN PRN Reason: Dry Eyes Bisacodyl (Dulcolax) 10 mg PO DAILYPRN PRN PRN Reason: Constipation Last Admin: 03/05/19 20:03 Dose: 10 mg Calcium Carbonate (Tums) 1,000 mg PO Q4H PRN PRN Reason: Heartburn or Indigestion Calcium/Vitamin D (Caltrate 600 + Vit D) 1 tab PO BID-[facility] Last Admin: 04/06/19 18:00 Dose: 1 tab Chlorzoxazone (Parafon Dsc) 500 mg PO TID PRN PRN Reason: Muscle Spasm Last Admin: 03/12/19 10:03 Dose: 500 mg Clonidine (Catapres) 0.1 mg PO BID [facility] Last Admin: 04/06/19 09:00 Dose: 0.1 mg Clonidine (Catapres) 0.1 mg PO Q4H PRN PRN Reason: SBP GREATER THAN 160 Docusate Sodium (Colace) 100 mg PO BID [facility] Last Admin: 04/06/19 09:00 Dose: 100 mg Guaifenesin (Robitussin Sf) 200 mg PO Q4H PRN PRN Reason: Cough Hydralazine HCl (Apresoline) 10 mg SLOW IVP Q4H PRN PRN Reason: SBP > 180 and HR < 70 Last Admin: 02/24/19 15:12 Dose: 10 mg Cefazolin Sodium/Dextrose 2 gm (/ Device) 50 mls @ 100 mls/hr IVPB 0200,1000, 1800 [facility] Last Admin: 04/06/19 18:00 Dose: 50 mls Labetalol HCl (Normodyne) 20 mg SLOW IVP Q4H PRN PRN Reason: SBP > 180 and HR >/= 70 Loperamide HCl (Imodium) 2 mg PO PRN PRN PRN Reason: Diarrhea/Loose Stools Loratadine (Claritin) 10 mg PO DAILYPRN PRN PRN Reason: Sinus Symptoms Metoprolol Tartrate (Lopressor) 25 mg PO BID [facility] Last Admin: 04/06/19 09:00 Dose: 25 mg Mineral Oil/White Petrolatum (Eucerin Cream) 0 gm TOP BIDPRN PRN PRN Reason: Dry Skin Multivitamins (Theragran) 1 tab PO DAILY [facility] Last Admin: 04/06/19 09:00 Dose: 1 tab Ondansetron HCl (Zofran Odt) 4 mg PO Q6H PRN PRN Reason: Nausea/Vomiting Ondansetron HCl (Zofran) 4 mg IVP Q6H PRN PRN Reason: Nausea/Vomiting Polyethylene Glycol (Miralax) 17 gm PO DAILYPRN PRN PRN Reason: Constipation Saccharomyces Boulardii (Florastor) 250 mg PO DAILY [facility] Last Admin: 04/06/19 09:00 Dose: 250 mg Senna (Senokot) 2 tab PO HSPRN [facility] Last Admin: 03/13/19 09:18 Dose: 2 tab Senna/Docusate Sodium (Senokot S) 2 tab PO BID PRN PRN Reason: Constipation Last Admin: 03/01/19 20:55 Dose: 2 tab Sodium Chloride ([place] Nasal [place] 0.65%) 0 ml EA NARE QIDPRN PRN PRN Reason: Nasal Congestion Sodium Chloride (Flush - Normal Saline) 10 ml IVF Q12HR [facility] Last Admin: 04/06/19 09:00 Dose: 10 ml Sodium Chloride (Flush - Normal Saline) 10 ml IVF PRN PRN PRN Reason: Saline Flush Last Admin: 03/11/19 11:42 Dose: 10 ml Sodium Chloride (Flush - Normal Saline) 10 ml IVF PRN PRN PRN Reason: Saline Flush Throat Lozenges (Cepastat Lozenges) 1 miriam PO Q2H PRN PRN Reason: Sore Throat Zolpidem Tartrate (Ambien) 10 mg PO HSPRN PRN PRN Reason: Insomnia Last Admin: 03/29/19 20:01 Dose: 10 mg
== END 2019-04-07 04:54 | disposition left against medical advice (07) | DRG 872 ==
LOC: ERS 06:02 → SURG A 10:06
PROVIDERS: ADMIT Internal Medicine; ATTEND Internal Medicine
DX: A41.01 Sepsis due to Methicillin susceptible Staphylococcus aureus (principal); J39.0 Retropharyngeal and parapharyngeal abscess; T82.49XA Other complication of vascular dialysis catheter, initial encounter; I10 Essential (primary) hypertension; R13.10 Dysphagia, unspecified; M46 Other inflammatory spondylopathies; B18.2 Chronic viral hepatitis C; D64.9 Anemia, unspecified; F19.10 Other psychoactive substance abuse, uncomplicated; K59.00 Constipation, unspecified; E87.6 Hypokalemia; R00.0 Tachycardia, unspecified; Z87.891 Personal history of nicotine dependence; Z79.899 Other long term (current) drug therapy; Z98.890 Other specified postprocedural states; Z88.6 Allergy status to analgesic agent; Z88.8 Allergy status to other drugs, medicaments and biological substances; Z87.09 Personal history of other diseases of the respiratory system
CPT/HCPCS: 36415; 36416; 70450; 70491; 72156; 74176; 80048; 80053; 80306; 81003; 81015; 83605; 83690; 83735; 85025; 86140; 87040; 87086; 93005; 93010; 96360; 96361; 96365; 96367; 96374; 96375; 99283; A4216; A9577; J0360; J0690; J0696; J1642; J1885; J2270; J2997; J3010; J3370; J3490; Q0162; Q9966

== ENCOUNTER 2019-04-07 10:25 | Emergency (ER) | payer OTHER | END 2019-04-07 11:32 | disposition home or self-care (01) | LOC: ERS 10:25 | DX: Z45.2 Encounter for adjustment and management of vascular access device (principal); F41.9 Anxiety disorder, unspecified; Z87.891 Personal history of nicotine dependence; Z87.442 Personal history of urinary calculi | CPT/HCPCS: 99283; C1776 ==

== ENCOUNTER 2019-04-25 10:34 | Emergency (ER) | payer OTHER ==
[2019-04-25 11:43] LABS: #Eosinphils 0.1 thou/uL (0.0-0.7); #Monocytes 0.7 thou/uL (0.11-0.59); #Neutrophils 2.5 thou/uL (1.40-6.50); %Basophils 0.8 % (0.0-1.0); %Eosinophils 1.9 % (0.0-10.0); %Lymphocytes 36.7 % (21.0-51.0); %Monocytes 13.9 % (0.0-10.0); %Neutrophils 46.6 % (42.0-75.0); Hemoglobin 13.9 g/dL (14.0-18.0); Mean Platelet Volume 6.7 fL (7.4-10.4); Platelet Count 395 thou/uL (130-400); RBC Distribution Width 12.9 % (11.5-14.5); Red Blood Cell (RBC) Count 4.35 mill/uL (4.70-6.10); White Blood Cell (WBC) Count 5.3 thou/uL (4.8-10.8)
[2019-04-25 12:04] LABS: ALT (SGPT) 39 U/L (8-55); AST (SGOT) 31 U/L (5-34); Albumin 4.2 g/dL (3.5-5.0); Alkaline Phosphatase 78 U/L (40-150); Anion Gap 13 mmol/L (10-20); BUN (Urea Nitrogen) 14 mg/dL (8.9-20.6); Bilirubin, Total 0.5 mg/dL (0.2-1.2); Calc. Creatinine Clearance 0 mL/min (70-130); Calcium 9.3 mg/dL (7.8-10.44); Carbon Dioxide 23 mmol/L (22-29); Chloride 109 mmol/L (98-107); Estimated GFR-MDRD 82; Globulin 2.7 g/dL (2.4-3.5); Glucose 106 mg/dL (70-105); Potassium 3.6 mmol/L (3.5-5.1); Protein, Total 6.9 g/dL (6.0-8.3); Sodium 141 mmol/L (136-145)
--- NOTE | 2019-04-25 14:09 | MRI ---
MRI CERVICAL SPINE: HISTORY: Evaluate for abscess. Multiplanar multisequence pre and postcontrast enhanced MRI images cervical spine obtained. Compariso n made to previous MRI from 03/12/2019. FINDINGS: Images demonstrate areas of continuous signal abnormality seen in the C1 to atlantoaxial joint. Areas of signal abnormality remain involving much of the odontoid. Areas of surrounding enhancement seen compatible with inflammatory process in the odontoid. This is not significantly changed since the pre vious exam. There continues to be area of abnormal T2 signal and enhancement in the prevertebral space compatible with prevertebral cellulitis. Area of signal abnormality within the medulla and upper cervical cord appears to have resolved and is no longer visible. Some gliotic and myelomalacia changes appear to be present in this region. No definite evidence of newly developed abscess seen. IMPRESSION: Stable MRI appearance of the cervical spine. Transcribed Date/Time: 04/25/2019 2:13 PM
[2019-04-25] MEDS ORDERED: Gadobenate Dimeglumine 529 MG/1 ML (20ML VIAL) ONE (16:34)
== END 2019-04-25 14:45 | disposition home or self-care (01) ==
LOC: ERS 10:34
DX: M54.2 Cervicalgia (principal); F41.9 Anxiety disorder, unspecified; Z87.891 Personal history of nicotine dependence
CPT/HCPCS: 36415; 72156; 80053; 83605; 85025; 85652; 86140; 87040; A9577